=== PATIENT | female | born 1955 | race Caucasian/White ===

== ENCOUNTER 2020-01-18 12:21 | Outpatient (REF) | payer OTHER, SELFPAY ==
[2020-01-18 14:06] LABS: MANUAL DIFF FLAG NO
[2020-01-18 14:09] LABS: Basophils Absolute Auto 0.1 X10*3/uL (0.0-0.2); Eosinophils Absolute Auto 0.2 X10*3/uL (0.0-0.4); Eosinophils Percent Auto 2.9 % (0-4); Hematocrit 42.2 % (37-47); Hemoglobin 13.1 g/dl (12.0-16.0); Imm Gran Abs Auto 0.04 X10*3/uL (0.00-0.03); Imm Gran Pct Auto 0.6 % (0.0-0.4); Lymphocytes Absolute Auto 1.4 X10*3/uL (1.2-4.9); Lymphocytes Percent Auto 21.8 % (20-40); Mean Corpuscular Volume 83.7 fL (80-98); Mean Platelet Volume 10.1 fL (9.4-12.3); Monocytes Absolute Auto 0.7 X10*3/uL (0.1-1.2); Monocytes Percent Auto 11.6 % (2-11); Neutrophils Absolute Auto 3.9 X10*3/uL (2.0-8.3); Neutrophils Percent Auto 62.1 % (45-73); Platelet Count 365 X10*3/uL (160-400); Red Blood Count 5.04 X10*6/uL (4.20-5.50); Red Cell Distribution Width 15.6 % (11.0-16.0); White Blood Count 6.3 X10*3/uL (4.8-10.8)
[2020-01-18 14:44] LABS: Alanine Aminotransferase 19 U/L (0-31); Alkaline Phosphatase 151 U/L (39-117); Anion Gap 14 (12-20); Aspartate Amino Transferase 18 U/L (5-31); Bilirubin Total 0.5 mg/dL (0.0-1.0); Blood Urea Nitrogen 10 mg/dL (9-16); Calcium 9.3 mg/dL (8.4-10.2); Carbon Dioxide 27 mmol/L (22-29); Chloride 104 mmol/L (96-108); Estimated Glomerular Filt Rate > 60; Glucose Random 92 mg/dL (60-115); Potassium 4.4 mmol/l (3.3-5.1); Sodium 141 mmol/L (135-145); Total Protein 6.9 g/dL (6.5-8.0)
== END 2020-01-18 12:22 | disposition home or self-care (01) ==
LOC: HO.LAB 12:21
PROVIDERS: PCP Internal Medicine; Visit Provider Student in an Organized Health Care Education/Training Program
DX: M05.9 Rheumatoid arthritis with rheumatoid factor, unspecified (principal); Z79.899 Other long term (current) drug therapy
CPT/HCPCS: 36415; 80053; 85025; 86140

== ENCOUNTER → 2020-01-24 10:37 | Outpatient (BNVA) | payer OTHER, SELFPAY | PROVIDERS: PCP Internal Medicine; Referring Provider Internal Medicine; Visit Provider Student in an Organized Health Care Education/Training Program | DX: Z76.89 Persons encountering health services in other specified circumstances (principal) ==

== ENCOUNTER → 2020-02-14 08:11 | Outpatient (BNVA) | payer OTHER, SELFPAY | PROVIDERS: Visit Provider Obstetrics & Gynecology | DX: Z76.89 Persons encountering health services in other specified circumstances (principal) ==

== ENCOUNTER → 2020-05-13 08:31 | Outpatient (BNVA) | payer OTHER, SELFPAY | PROVIDERS: PCP Internal Medicine; Visit Provider Physician Assistant ==

== ENCOUNTER 2020-05-19 09:33 | Outpatient (REF) | payer OTHER, SELFPAY ==
--- NOTE | ~2020-05-19 | MM_ITS ---
EXAMINATION: MM SCREENING DIGITAL BREAST TOMOSYNTHESIS, BILATERAL CLINICAL INFORMATION: Screening. Asymptomatic. The lifetime risk of breast cancer based on the Tyrer-Cuzick Model is 5%. COMPARISON: Mammography: 06/07/2019, 01/05/2018, 12/17/2016 TECHNIQUE: Digital breast tomosynthesis is performed in both the craniocaudal and mediolateral oblique views along with computer-aided detection (CAD). Synthesized 2D images are generated from the tomosynthesis. FINDINGS: The breasts are heterogeneously dense, which may obscure small masses (ACR BI-RADS breast composition Category c). There are no significant masses, abnormal calcifications, or other abnormalities. There are scattered bilateral vascular calcifications. The punctate digital processing artifact overlies the posterior upper right axilla on synthesized MLO view without correlate on tomography. The skin contours are smooth. MM/MM tomosynthesis screening BI IMPRESSION: No mammographic evidence of malignancy. ASSESSMENT: BI-RADS 2: Benign RECOMMENDATION: Routine annual mammography screening. This patient's information was entered into a reminder system with a target due date for their next mammogram.
--- NOTE | ~2020-05-19 | MM_ITS ---
EXAMINATION: BONE DENSITOMETRY CLINICAL INDICATION: Other specified personal risk factors, not elsewhere classified. COMPARISON: Previous BD dated 10/21/2015 and baseline BD dated 08/09/2003. TECHNIQUE: Using a [employer] DXA System (software version: 13.1) manufactured by [employer], dual-energy x-ray absorptiometry was performed of the lumbar spine and left hip. The images are of good technical quality. Summary results are attached. FINDINGS: AP SPINE L1-L4: Current: BMD 0.823 g/cm2, Z-score -1.7, T-score -3.0, osteoporosis, 1.5% increase from previous, 23.4% decrease from baseline (<5% change is not significant). Prior: BMD 0.811 g/cm2. Baseline: BMD 1.074 g/cm2. LEFT FEMUR, NECK: Current: BMD 0.762 g/cm2, Z-score -0.7, T-score -2.0, osteopenia. Prior: BMD 0.776 g/cm2. Baseline: BMD 0.803 g/cm2. LEFT FEMUR, TOTAL: Current: BMD 0.779 g/cm2, Z-score -0.8, T-score -1.8, osteopenia, 1.1% decrease from previous, 4.5% decrease from baseline (<5% change is not significant). Prior: BMD 0.788 g/cm2. Baseline: BMD 0.816 g/cm2. IDENTIFIED RISK FACTORS: Menopause. Rheumatoid arthritis. HISTORY OF FRACTURE: None listed. MEDICATIONS: None listed. MM/XR DEXA axial skeleton IMPRESSION: 1. DIAGNOSIS: Osteoporosis based on the lowest T-score value of -3.0 in the lumbar spine applying World Health Organization criteria. 2. 10-YEAR FRACTURE RISK PREDICTION, FRAX: According to the guidelines, FRAX calculation should only be performed on patients in the osteopenia bone density category. Therefore, FRAX was not performed on this patient.? 3. Treatment Recommendations: NOF guidelines recommend consideration for treatment in postmenopausal women and men age 50 and older presenting with the following: -A hip or vertebral (clinical or morphometric) fracture. -T-score less than or equal to -2.5 at the femoral neck or spine after appropriate evaluation to exclude secondary causes. -Low bone mass at the hip or spine and a 10-year fracture probability by FRAX of greater than or equal to 3% for hip fracture or greater than or equal to 20% for major osteoporotic fracture based on the [place] adapted WHO algorithm. 4. Other Recommendations: All treatment decisions require clinical judgment and consideration of individual patient factors, including patient preferences, comorbidities, previous drug use, risk factors not captured in the FRAX model (e.g. frailty, falls, vitamin D deficiency, increased bone turnover, interval significant decline in bone density) and possible under or overestimation of fracture risk by FRAX. Additional medical evaluation for secondary cause of low bone mineral density may be appropriate. FUTURE SCAN RECOMMENDATION: People with diagnosed cases of osteoporosis or at high risk for fracture should have regular bone mineral density tests. For patients eligible for Medicare, routine testing is allowed once every 2 years. The testing frequency can be increased to one year for patients who have rapidly progressing disease, those who are receiving or discontinuing medical therapy to restore bone mass, or have additional risk factors.
== END 2020-05-19 09:34 | disposition home or self-care (01) ==
LOC: HO.MAMMO 09:33
PROVIDERS: PCP Internal Medicine; Visit Provider Obstetrics & Gynecology
DX: Z12.31 Encounter for screening mammogram for malignant neoplasm of breast (principal); Z13.820 Encounter for screening for osteoporosis; Z78.0 Asymptomatic menopausal state; M06.9 Rheumatoid arthritis, unspecified
CPT/HCPCS: 77063; 77067; 77080

== ENCOUNTER 2020-06-11 14:31 | Outpatient (REF) | payer OTHER, SELFPAY ==
[2020-06-11 15:18] LABS: MANUAL DIFF FLAG NO
[2020-06-11 15:21] LABS: Basophils Percent Auto 0.6 % (0-2); Eosinophils Absolute Auto 0.1 X10*3/uL (0.0-0.4); Eosinophils Percent Auto 0.9 % (0-4); Hematocrit 43.3 % (37-47); Hemoglobin 13.5 g/dl (12.0-16.0); Imm Gran Abs Auto 0.02 X10*3/uL (0.00-0.03); Imm Gran Pct Auto 0.4 % (0.0-0.4); Lymphocytes Absolute Auto 1.5 X10*3/uL (1.2-4.9); Lymphocytes Percent Auto 28.9 % (20-40); Mean Corpuscular HGB Conc 31.2 g/dl (31.0-35.0); Mean Corpuscular Hemoglobin 26.5 pg (27.0-33.0); Mean Corpuscular Volume 85.1 fL (80-98); Mean Platelet Volume 10.6 fL (9.4-12.3); Monocytes Absolute Auto 0.5 X10*3/uL (0.1-1.2); Monocytes Percent Auto 9.2 % (2-11); Neutrophils Absolute Auto 3.2 X10*3/uL (2.0-8.3); Platelet Count 277 X10*3/uL (160-400); Red Blood Count 5.09 X10*6/uL (4.20-5.50); Red Cell Distribution Width 15.6 % (11.0-16.0); White Blood Count 5.3 X10*3/uL (4.8-10.8)
[2020-06-11 15:49] LABS: Alanine Aminotransferase 20 U/L (0-31); Albumin Level 4.1 g/dL (3.5-5.0); Alkaline Phosphatase 156 U/L (39-117); Anion Gap 13 (12-20); Aspartate Amino Transferase 17 U/L (5-31); Bilirubin Total 0.6 mg/dL (0.0-1.0); Blood Urea Nitrogen 10 mg/dL (9-16); C Reactive Protein 1.21 mg/dL (< or = 0.50); Carbon Dioxide 27 mmol/L (22-29); Chloride 104 mmol/L (96-108); Estimated Glomerular Filt Rate > 60; Glucose Random 128 mg/dL (60-115); Potassium 3.8 mmol/L (3.3-5.1); Sodium 140 mmol/L (135-145)
[2020-06-11 16:06] LABS: Erythrocyte Sedimentation Rate 13 MM/HR (0-20)
[2020-06-11 16:08] LABS: Vitamin D 25-OH Total < 3.4 ng/mL (>30)
== END 2020-06-11 14:32 | disposition home or self-care (01) ==
LOC: HO.LAB 14:31
PROVIDERS: Obstetrics & Gynecology; PCP Internal Medicine; Visit Provider Student in an Organized Health Care Education/Training Program
DX: M05.9 Rheumatoid arthritis with rheumatoid factor, unspecified (principal); M81.0 Age-related osteoporosis without current pathological fracture
CPT/HCPCS: 36415; 80053; 82306; 85025; 85652; 86140

== ENCOUNTER → 2020-06-17 14:10 | Outpatient (BNVA) | payer OTHER, SELFPAY | PROVIDERS: PCP Internal Medicine; Visit Provider Student in an Organized Health Care Education/Training Program ==

== ENCOUNTER 2020-06-26 09:49 | Day surgery (SDC) | payer OTHER, SELFPAY ==
[2020-06-19 19:21] VITALS: BMI 28.6
--- NOTE | 2020-06-25 09:58 | HO.ANESPROP2 ---
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 Surgical History Surgical History H/O cystoscopy H/O hemorrhoidectomy History of colonoscopy Social History Social History Household Members: Family Alcohol intake: never Smoking Status: Former smoker Smoked in Last 30 Days: No Smoking Quit Date: 2010 Use of substances other than those prescribed or required for medical reasons: No Have you been hit, kicked, punched, or otherwise hurt by someone within the past year? If so, by whom?: No Advance Directives: No Advance Directives Information Provided: No Advance Directives on File: No Recently lost weight without trying: No Current occupational status: employed Current occupation: [employer] Allergies Allergy/AdvReac Type Severity Reaction Status Date / Time No Known Allergies Allergy Verified 06/26/20 10:30 [No Known Allergies*] Home Medications Medication Instructions Recorded Confirmed Last Taken Type acetaminophen 650 mg 1,300 mg PO Q12H PRN 01/24/20 06/19/20 Unknown History tablet,extended release folic acid 1 mg tablet 1 mg PO DAILY 01/24/20 06/19/20 Unknown History omeprazole 20 mg capsule,delayed 20 mg PO BID 01/24/20 06/19/20 Unknown History release triamcinolone acetonide 0.5 % 1 appl TOPICAL Q OTHER DAY PRN 03/20/20 06/19/20 Unknown History topical cream Exam Exam Date and Time: June 25, 2020 0958 Height,Weight and Vital Signs: Height 5 ft 4 in Weight 75.75 kg Pertinent Lab Results Pertinent Lab Results: Laboratory Tests 06/11/20 06/11/20 14:42 14:42 WBC 5.3 Hgb 13.5 Hct 43.3 Plt Count 277 Sodium 140 Potassium 3.8 Chloride 104 Carbon Dioxide 27 BUN 10 Creatinine 0.76 Assessment and Plan Assessment Anesthesia Assessment: Chart Reviewed Documented by User: Vaishnavi Dial 06/26/20 10:56 [facility] Past Medical History Medical History Acid reflux Anxiety GERD (gastroesophageal reflux disease) Iron deficiency Osteoporosis Polyarthritis Seropositive rheumatoid arthritis Nik's bundonaldtte, left Family History Family History Mother CVD (cardiovascular disease) Father No problems noted. Family history of problems with anesthesia: No Surgical History Surgical History H/O cystoscopy H/O hemorrhoidectomy History of colonoscopy History of Problems with Anesthesia: No Social History Social History Household Members: Family Alcohol intake: never Smoking Status: Former smoker Smoked in Last 30 Days: No Smoking Quit Date: 2010 Use of substances other than those prescribed or required for medical reasons: No Have you been hit, kicked, punched, or otherwise hurt by someone within the past year? If so, by whom?: No Advance Directives: No Advance Directives Information Provided: No Advance Directives on File: No Recently lost weight without trying: No Current occupational status: employed Current occupation: [employer] Allergies Allergy/AdvReac Type Severity Reaction Status Date / Time No Known Allergies Allergy Verified 06/26/20 10:30 [No Known Allergies*] Home Medications Medication Instructions Recorded Confirmed Last Taken Type acetaminophen 650 mg 1,300 mg PO Q12H PRN 10/29/20 03/25/21 Unknown History tablet,extended release folic acid 1 mg tablet 1 mg PO DAILY 01/24/20 06/19/20 Unknown History omeprazole 20 mg capsule,delayed 20 mg PO BID 01/24/20 06/19/20 Unknown History release triamcinolone acetonide 0.5 % 1 appl TOPICAL Q OTHER DAY PRN 03/20/20 06/19/20 Unknown History topical cream Exam Height,Weight and Vital Signs: Vital Signs Temp Pulse Resp BP Pulse Ox 06/26/20 10:13 98.4 F 70 18 139/76 98 Airway Mallampati Class: II TM Dist: >3cm Neck ROM: Full Loose/Missing/Broken Teeth: Yes (Chipped top front teeth) Heart: RRR Lungs: CTAB Assessment and Plan Assessment Anesthesia Assessment: Anesthesia Plan Discussed and Chart Reviewed Final Anesthetic Review NPO: Yes ASA Class: II Final Preanesthetic Review: No Changes in Pt Med Stat, Meds/Allgs Chart Reviewed, Consent Obtained/Reviewed and Anes Risks/Benef Reviewed Patient Risk: Intermediate Procedure Risk: Low Assessment/Block/Sedation in SS: Assess/Block/Sedation-SS Anesthetic Plan Anesthetic Plan: MAC: Disposition: Standard PACU
[2020-06-26 10:13] VITALS: BP 139/76; PULSE 70; RESP 18; TEMP 36.9; O2SAT 98
[2020-06-26] MEDS: Lactated Ringers 1,000 ML 100 ML IVCONT (10:40)
--- NOTE | 2020-06-26 10:50 | MHC.SHP ---
Pre-Procedural Eval Section B Chief Complaint: GERD, Screening Relevant Family History (Specify if Yes): No Relevant Social History: None Present Medications: see Short Stay Collaborative assessment Medical History: Significant History (Acid reflux Anxiety GERD (gastroesophageal reflux disease) Iron deficiency Osteoporosis Polyarthritis Seropositive rheumatoid arthritis Nik'laurie arreola, left) History of Previous Operations: Relevant previous surgery/procedure and date(s) (hemorrhoidectomy and cystoscopy) Allergies: Allergies Allergy/AdvReac Type Severity Reaction Status Date / Time No Known Allergies Allergy Verified 06/26/20 10:30 [No Known Allergies*] Review of Systems Sugical H&P ROS: Negative: Constitution, Cardiovascular, Respiratory, Neurological, Psychiatric, Hem-Onc, Allergic/Immunologic, Gastrointestinal, Genitourinary, Musculoskeletal, Integumentary, Endocrine and Eyes/Ears/Nose/Throat Exam Surgical H&P Exam: Normal: HEENT, Normal: Heart, Normal: Lungs, Normal: Extremities, Normal: Abdomen, Normal: Skin and Normal: Neurological Plan Diagnosis/Plan: Unchanged I have reviewed the history and physical and performed a pertinent physical examination on my patient. No changes have occurred unless specified.
--- NOTE | 2020-06-26 10:50 | PM.OP ---
Brief Operative Note Date of Service: 06/26/20 Pre-op diagnosis: GERD and colon screen Post-op diagnosis: same Procedure: see op note Surgeon: Leonora Tsang MD Anesthesia: MAC Estimated blood loss (mL): 0 Condition: stable Disposition: PACU
--- NOTE | 2020-06-26 10:51 | W.PM.OPN ---
Operative Note Operative Note Date of Service: 06/26/20 Narrative: Operative Information Procedure Description: EGD, Colonoscopy FLEXIBLE TRANSORAL UPPER GASTROINTESTINAL ENDOSCOPY AND COLONOSCOPY PROCEDURE NOTE UPPER ENDOSCOPY Consent: Indications for the procedure and potential complications of bleeding, perforation, reaction to medications and missed diagnosis were discussed with the patient and informed consent was obtained. Instrument: Olympus GIF H 190 J mid size upper endoscope Monitoring: Vital signs and clinical assessment, continuous EKG monitoring, Pulse oximetry, Carbon Dioxide monitoring and blood pressure monitoring were done throughout the procedure. Procedure: The patient was placed in the left lateral decubitis position and pre-procedure medications were administered and a bite block was placed. The endoscope was inserted into the mouth and advanced under direct vision to the third part of duodenum. A careful inspection was made as the upper endoscope was withdrawn including a retroflexed examination of the proximal stomach; Findings and interventions are described below. Findings: Larynx:normal Esophagus: GE junction at 33 cm, diaphragm hiatus at 36 cm, consistent with 3 cm sliding hiatal hernia, irregular Z line with esophagitis and some small islands of salmon pink mucosa noted, bx taken Stomach: Normal mucosa with few fundic gland polyps noted. Biopsies were obtained. Grade 2 flap valve on retroflexed examination of the cardia. Duodenum: Normal bulb and descending duodenum, Intervention: Biopsies as noted above COLONOSCOPY Instrument: Olympus variable stiffness pediatric scope 190L Colonoscopy Monitoring: Vital signs and clinical assessment, continuous EKG monitoring, Pulse oximetry, Carbon Dioxide monitoring and blood pressure monitoring were done throughout the procedure. Colon withdrawal time was 12 minutes. Procedure: The patient was placed in the left lateral decubitis position and pre-procedure medications were administered. After a digital rectal examination of the ano-rectum, the video colonoscope was inserted into the rectum and advanced through the colon to the cecum/TI. The colonoscope was slowly withdrawn in a retrograde panoramic fashion and the colon mucosa was carefully examined including a retroflexed view of the rectum. Findings and interventions are described below. Procedure Difficulty:easy Findings: Terminal Ileum-normal Cecum:normal Ascending Colon: normal Transverse Colon - x2 sessile polyps measuring 10-12 mm removed with cold snare Descending Colon: x 1 sessile polyp removed with cold snare about 10 mm in size Sigmoid Colon: normal Rectum: Retroflexion with small internal hemorrhoids, grade I Anorectum - normal Colon preparation: [place] Bowel Preparation Scale Right colon; 2 Transverse colon: 1 Left colon; 1 (0 = Unprepared colon segment with mucosa not seen due to solid stool that cannot be cleared. 1 = Portion of mucosa of the colon segment seen, but other areas of the colon segment not well seen due to staining, residual stool and/or opaque liquid. 2 = Minor amount of residual staining, small fragments of stool and/or opaque liquid, but mucosa of colon segment seen well. 3 = Entire mucosa of colon segment seen well with no residual staining, small fragments of stool or opaque liquid) Impression and Post Procedure Diagnosis: Endoscopy Findings: esophagitis hiatal hernia fundic gland polyps Colonoscopy Findings: internal hemorrhoids polyps Plan: Await Pathology results Repeat Colonoscopy in 1-2 years due to left sided prep being fair to poor or earlier if clinically indicated High fiber diet leaflet avoid straining at stool, epsom salts and sitz bath, anusol supps or cream as needed may have to increase PPI dose, GERd precautions due to hiatal hernia Above findings were reviewed with the patient and relevant handouts were provided if indicated.
[2020-06-26 11:36] VITALS: BP 121/66; PULSE 74; RESP 14; TEMP 36.9; O2SAT 98
[2020-06-26 11:51] VITALS: BP 129/67; PULSE 58; RESP 18; TEMP 37; O2SAT 98
== END 2020-06-26 12:40 | disposition home or self-care (01) ==
LOC: HO.SSS 09:50
PROVIDERS: PCP Internal Medicine; Visit Provider Internal Medicine Gastroenterology
PROC: (CPT 45385; principal; 2020-06-26 11:00)
DX: Z12.11 Encounter for screening for malignant neoplasm of colon (principal); D12.3 Benign neoplasm of transverse colon; D12.4 Benign neoplasm of descending colon; K64.0 First degree hemorrhoids; K21.00 Gastro-esophageal reflux disease with esophagitis, without bleeding; K31.7 Polyp of stomach and duodenum; K44.9 Diaphragmatic hernia without obstruction or gangrene; M05.9 Rheumatoid arthritis with rheumatoid factor, unspecified; M81.0 Age-related osteoporosis without current pathological fracture; Z79.899 Other long term (current) drug therapy
CPT/HCPCS: 45385; 43239; 88305; 88342; J3010

== ENCOUNTER → 2020-07-03 08:59 | Outpatient (BNVA) | payer OTHER, SELFPAY | PROVIDERS: PCP Internal Medicine; Visit Provider Physician Assistant ==

== ENCOUNTER 2020-09-16 13:05 | Outpatient (REF) | payer OTHER, SELFPAY ==
[2020-09-16 14:02] LABS: MANUAL DIFF FLAG NO
[2020-09-16 14:08] LABS: Basophils Percent Auto 0.7 % (0-2); Eosinophils Absolute Auto 0.1 X10*3/uL (0.0-0.4); Eosinophils Percent Auto 2.4 % (0-4); Hematocrit 39.6 % (37-47); Hemoglobin 12.4 g/dl (12.0-16.0); Imm Gran Abs Auto 0.02 X10*3/uL (0.00-0.03); Imm Gran Pct Auto 0.4 % (0.0-0.4); Lymphocytes Absolute Auto 1.5 X10*3/uL (1.2-4.9); Mean Corpuscular HGB Conc 31.3 g/dl (31.0-35.0); Mean Corpuscular Hemoglobin 26.2 pg (27.0-33.0); Mean Corpuscular Volume 83.7 fL (80-98); Monocytes Absolute Auto 0.5 X10*3/uL (0.1-1.2); Monocytes Percent Auto 11.6 % (2-11); Neutrophils Absolute Auto 2.4 X10*3/uL (2.0-8.3); Neutrophils Percent Auto 51.9 % (45-73); Platelet Count 268 X10*3/uL (160-400); Red Blood Count 4.73 X10*6/uL (4.20-5.50); Red Cell Distribution Width 15.3 % (11.0-16.0); White Blood Count 4.6 X10*3/uL (4.8-10.8)
[2020-09-16 14:47] LABS: Alanine Aminotransferase 14 U/L (0-31); Albumin Level 3.8 g/dL (3.5-5.0); Alkaline Phosphatase 154 U/L (39-117); Anion Gap 11 (12-20); Aspartate Amino Transferase 16 U/L (5-31); Bilirubin Total 0.6 mg/dL (0.0-1.0); Blood Urea Nitrogen 8 mg/dL (9-16); C Reactive Protein 0.71 mg/dL (< or = 0.50); Calcium 9.1 mg/dL (8.4-10.2); Carbon Dioxide 26 mmol/L (22-29); Chloride 106 mmol/L (96-108); Estimated Glomerular Filt Rate > 60; Glucose Random 98 mg/dL (60-115); Sodium 139 mmol/L (135-145); Total Protein 6.6 g/dL (6.5-8.0)
[2020-09-16 15:00] LABS: Erythrocyte Sedimentation Rate 10 MM/HR (0-20)
== END 2020-09-16 13:06 | disposition home or self-care (01) ==
LOC: HO.LAB 13:05
PROVIDERS: PCP Internal Medicine; Visit Provider Student in an Organized Health Care Education/Training Program
DX: Z11.1 Encounter for screening for respiratory tuberculosis (principal); M05.9 Rheumatoid arthritis with rheumatoid factor, unspecified
CPT/HCPCS: 36415; 80053; 85025; 85652; 86140

== ENCOUNTER → 2020-09-23 08:37 | Outpatient (BNVA) | payer OTHER, SELFPAY | PROVIDERS: Visit Provider Student in an Organized Health Care Education/Training Program ==

== ENCOUNTER 2020-12-25 10:15 | Outpatient (REF) | payer OTHER, SELFPAY ==
[2020-12-25 10:44] LABS: MANUAL DIFF FLAG NO
[2020-12-25 11:12] LABS: Basophils Percent Auto 0.6 % (0-2); Eosinophils Absolute Auto 0.1 X10*3/uL (0.0-0.4); Eosinophils Percent Auto 1.2 % (0-4); Hematocrit 42.2 % (37-47); Hemoglobin 13.1 g/dl (12.0-16.0); Imm Gran Abs Auto 0.01 X10*3/uL (0.00-0.03); Imm Gran Pct Auto 0.2 % (0.0-0.4); Lymphocytes Percent Auto 20.1 % (20-40); Mean Corpuscular Hemoglobin 26.4 pg (27.0-33.0); Mean Corpuscular Volume 85.1 fL (80-98); Mean Platelet Volume 10.3 fL (9.4-12.3); Monocytes Absolute Auto 0.4 X10*3/uL (0.1-1.2); Monocytes Percent Auto 9.1 % (2-11); Neutrophils Absolute Auto 3.3 X10*3/uL (2.0-8.3); Neutrophils Percent Auto 68.8 % (45-73); Platelet Count 270 X10*3/uL (160-400); Red Blood Count 4.96 X10*6/uL (4.20-5.50); Red Cell Distribution Width 15.5 % (11.0-16.0); White Blood Count 4.8 X10*3/uL (4.8-10.8)
[2020-12-25 11:30] LABS: Alanine Aminotransferase 16 U/L (0-31); Albumin Level 3.9 g/dL (3.5-5.0); Alkaline Phosphatase 147 U/L (39-117); Anion Gap 13 (12-20); Aspartate Amino Transferase 15 U/L (5-31); Bilirubin Total 0.6 mg/dL (0.0-1.0); Blood Urea Nitrogen 7 mg/dL (9-16); C Reactive Protein 0.76 mg/dL (< or = 0.50); Calcium 9.2 mg/dL (8.4-10.2); Carbon Dioxide 25 mmol/L (22-29); Chloride 108 mmol/L (96-108); Cholesterol 208 mg/dL; Estimated Glomerular Filt Rate > 60; Glucose Random 100 mg/dL (60-115); HDL Cholesterol 76 mg/dL; LDL Cholesterol Calculated 119 mg/dl; Potassium 3.6 mmol/L (3.3-5.1); Sodium 142 mmol/L (135-145); Total Protein 6.8 g/dL (6.5-8.0); Triglycerides 66 mg/dL
[2020-12-25 11:49] LABS: Thyroid Stimulating Hormone 0.44 uIU/mL (0.32-4.0)
[2020-12-25 12:38] LABS: Erythrocyte Sedimentation Rate 8 MM/HR (0-20)
[2020-12-30 14:56] LABS: Vitamin D 25-OH, D2 26 ng/mL; Vitamin D 25-OH, D3 30 ng/mL; Vitamin D 25-OH, Total 56 ng/mL (30-100)
== END 2020-12-25 10:16 | disposition home or self-care (01) ==
LOC: HO.LAB 10:15
PROVIDERS: Visit Provider Student in an Organized Health Care Education/Training Program
DX: M05.9 Rheumatoid arthritis with rheumatoid factor, unspecified (principal); E11.9 Type 2 diabetes mellitus without complications; E03.9 Hypothyroidism, unspecified
CPT/HCPCS: 36415; 80053; 80061; 82306; 84443; 85025; 85652; 86140

== ENCOUNTER → 2020-12-30 09:44 | Outpatient (BNVA) | payer OTHER, SELFPAY | PROVIDERS: PCP Internal Medicine; Visit Provider Nurse Practitioner Family ==

== ENCOUNTER → 2021-04-02 09:56 | Outpatient (BNVA) | payer OTHER, SELFPAY | PROVIDERS: PCP Internal Medicine; Visit Provider Nurse Practitioner Family ==

== ENCOUNTER 2021-04-04 09:22 | Outpatient (REF) | payer OTHER, SELFPAY ==
--- NOTE | ~2021-04-04 | XR_ITS ---
EXAMINATION: XR ABDOMEN KUB CLINICAL INDICATION: Epigastric pain COMPARISON: None TECHNIQUE: AP view of the abdomen. FINDINGS: There is scattered stool and gas seen throughout the right colon without distention. No organomegaly. No radiopaque calculi. No gross bony abnormality. XR/XR abdomen 1V IMPRESSION: Mild constipation.
[2021-04-04 10:44] LABS: Ferritin 147 ng/mL (10-250); TSH reflex Free T4 1.27 uIU/mL (0.32-4.0); Vitamin D 25-OH Total 37.1 ng/mL (>30)
[2021-04-06 09:18] LABS: Folate 14.1 ng/mL (> or = 4.0); Vitamin B12 301 pg/mL (200-900)
[2021-04-06 13:46] LABS: IgA 249 mg/dL (70-320); IgG 1158 mg/dL (600-1540); IgM 55 mg/dL (50-300)
[2021-04-07 17:56] LABS: Transglutaminase Ab IgG <1.0 U/mL; Transglutaminase IgA <1.0 U/mL
[2021-04-08 15:06] LABS: Zinc 63 mcg/dL (60-130)
[2021-04-09 00:31] LABS: Vitamin A 13 mcg/dL (38-98)
[2021-04-09 22:52] LABS: Vitamin C 0.2 mg/dL (0.3-2.7)
== END 2021-04-04 09:23 | disposition home or self-care (01) ==
LOC: HO.LAB 09:22
PROVIDERS: PCP Internal Medicine; Visit Provider Internal Medicine Gastroenterology
DX: R10.13 Epigastric pain (principal); R10.33 Periumbilical pain; R19.7 Diarrhea, unspecified; G89.29 Other chronic pain
CPT/HCPCS: 36415; 74018; 82180; 82306; 82607; 82728; 82746; 82784; 83520; 84443; 84590; 84630; 86364

== ENCOUNTER 2021-04-06 09:17 | Outpatient (REF) | payer OTHER, SELFPAY ==
[2021-04-06 10:52] LABS: CDiff Gene PCR POSITIVE (Negative)
[2021-04-06 11:48] LABS: CDiff Toxin Positive (Negative)
[2021-04-06 11:54] LABS: CDIFF Internal ctrl Dots and bkg OK (V)
[2021-04-11 19:41] LABS: Pancreatic Elastase-1 <15 mcg/g
[2021-04-19 01:52] LABS: Fecal Fat Qualitative NORMAL (NORMAL)
== END 2021-04-06 09:18 | disposition home or self-care (01) ==
LOC: HO.LNP 09:17
PROVIDERS: Visit Provider Internal Medicine Gastroenterology
DX: R10.13 Epigastric pain (principal); R19.7 Diarrhea, unspecified
CPT/HCPCS: 82656; 82705; 83631; 87324; 87338; 87493

== ENCOUNTER 2021-04-22 | Outpatient (REF) | payer OTHER, SELFPAY ==
[2021-04-25 18:01] LABS: Lactoferrin, Fecal, Quant. <30.0 mcg/mL
== END 2021-04-22 00:01 ==
LOC: HO.LAB
PROVIDERS: PCP Internal Medicine; Visit Provider Internal Medicine Gastroenterology
DX: R19.7 Diarrhea, unspecified (principal); R10.13 Epigastric pain
CPT/HCPCS: 83631

== ENCOUNTER → 2021-05-26 09:25 | Outpatient (BNVA) | payer OTHER, SELFPAY | PROVIDERS: PCP Internal Medicine; Visit Provider Advanced Practice Midwife ==

== ENCOUNTER → 2021-06-05 10:37 | Outpatient (BNVA) | payer OTHER, SELFPAY | PROVIDERS: PCP Internal Medicine; Referring Provider Internal Medicine; Visit Provider Internal Medicine Gastroenterology ==

== ENCOUNTER 2021-06-16 10:28 | Outpatient (REF) | payer OTHER, SELFPAY ==
--- NOTE | ~2021-06-16 | MM_ITS ---
EXAMINATION: MM SCREENING DIGITAL BREAST TOMOSYNTHESIS, BILATERAL CLINICAL INFORMATION: Screening. Asymptomatic. The lifetime risk of breast cancer based on the Tyrer-Cuzick Model is 3.2%. COMPARISON: Mammography: May 19, 2020 and studies dating back to July 17, 2013 TECHNIQUE: Digital breast tomosynthesis is performed in both the craniocaudal and mediolateral oblique views along with computer-aided detection (CAD). Synthesized 2D images are generated from the tomosynthesis. FINDINGS: The breasts are heterogeneously dense, which may obscure small masses (ACR BI-RADS breast composition Category c). There are no significant masses, abnormal calcifications, or other abnormalities. MM/MM tomosynthesis screening BI IMPRESSION: There are no significant changes from prior study. ASSESSMENT: BI-RADS 1: Negative RECOMMENDATION: Routine annual mammography screening. This patient's information was entered into a reminder system with a target due date for their next mammogram.
== END 2021-06-16 10:29 | disposition home or self-care (01) ==
LOC: HO.MAMMO 10:28
PROVIDERS: PCP Internal Medicine; Visit Provider Advanced Practice Midwife
DX: Z12.31 Encounter for screening mammogram for malignant neoplasm of breast (principal)
CPT/HCPCS: 77063; 77067

== ENCOUNTER 2021-09-02 11:23 | Outpatient (REF) | payer OTHER, SELFPAY ==
[2021-09-02 11:39] LABS: MANUAL DIFF FLAG NO
[2021-09-02 12:01] LABS: Basophils Percent Auto 0.8 % (0-2); Eosinophils Absolute Auto 0.1 X10*3/uL (0.0-0.4); Eosinophils Percent Auto 2.1 % (0-4); Hematocrit 40.5 % (37.0-47.0); Hemoglobin 12.7 g/dl (12.0-16.0); Imm Gran Abs Auto 0.01 X10*3/uL (0.00-0.03); Imm Gran Pct Auto 0.2 % (0.0-0.4); Lymphocytes Absolute Auto 1.6 X10*3/uL (1.2-4.9); Lymphocytes Percent Auto 32.6 % (20-40); Mean Corpuscular HGB Conc 31.4 g/dl (31.0-35.0); Mean Corpuscular Hemoglobin 25.5 pg (27.0-33.0); Mean Corpuscular Volume 81.3 fL (80.0-98.0); Mean Platelet Volume 10.5 fL (9.4-12.3); Monocytes Absolute Auto 0.4 X10*3/uL (0.1-1.2); Monocytes Percent Auto 8.8 % (2-11); Neutrophils Absolute Auto 2.7 x10*3/uL (2.0-8.3); Neutrophils Percent Auto 55.5 % (45-73); Platelet Count 296 X10*3/uL (160-400); Red Blood Count 4.98 X10*6/uL (4.20-5.50); Red Cell Distribution Width 16.3 % (11.0-16.0); White Blood Count 4.8 X10*3/uL (4.8-10.8)
[2021-09-02 12:26] LABS: Alanine Aminotransferase 11 U/L (0-31); Albumin Level 3.9 g/dL (3.5-5.0); Alkaline Phosphatase 130 U/L (39-117); Anion Gap 12 (12-20); Aspartate Amino Transferase 15 U/L (5-31); Bilirubin Total 0.6 mg/dL (0.0-1.0); Blood Urea Nitrogen 8 mg/dL (9-16); C Reactive Protein 0.28 mg/dL (< or = 0.50); Calcium 9.6 mg/dL (8.4-10.2); Carbon Dioxide 27 mmol/L (22-29); Chloride 106 mmol/L (96-108); Estimated Glomerular Filt Rate > 60; Glucose Random 93 mg/dL (60-115); Potassium 3.7 mmol/L (3.3-5.1); Sodium 141 mmol/L (135-145); Total Protein 6.8 g/dL (6.5-8.0)
[2021-09-02 12:48] LABS: Erythrocyte Sedimentation Rate 9 MM/HR (0-20)
[2021-09-05 09:57] LABS: TS Negative Control Passed; TS Panel A 2; TS Panel B 0; TS Positive Control Passed; TSpotTB Negative (Negative)
== END 2021-09-02 11:24 | disposition home or self-care (01) ==
LOC: HO.LAB 11:23
PROVIDERS: PCP Internal Medicine; Visit Provider Nurse Practitioner Family
DX: Z11.1 Encounter for screening for respiratory tuberculosis (principal); M05.9 Rheumatoid arthritis with rheumatoid factor, unspecified
CPT/HCPCS: 36415; 80053; 85025; 85652; 86140; 86481

== ENCOUNTER 2022-01-04 11:02 | Outpatient (REF) | payer OTHER, SELFPAY ==
[2022-01-04 11:14] LABS: MANUAL DIFF FLAG NO
[2022-01-04 12:02] LABS: Basophils Percent Auto 0.9 % (0-2); Eosinophils Absolute Auto 0.1 X10*3/uL (0.0-0.4); Eosinophils Percent Auto 1.9 % (0-4); Hematocrit 42.2 % (37.0-47.0); Hemoglobin 13.2 g/dl (12.0-16.0); Imm Gran Abs Auto 0.01 X10*3/uL (0.00-0.03); Imm Gran Pct Auto 0.2 % (0.0-0.4); Lymphocytes Absolute Auto 1.3 X10*3/uL (1.2-4.9); Lymphocytes Percent Auto 30.5 % (20-40); Mean Corpuscular HGB Conc 31.3 g/dl (31.0-35.0); Mean Corpuscular Hemoglobin 25.8 pg (27.0-33.0); Mean Corpuscular Volume 82.4 fL (80.0-98.0); Mean Platelet Volume 10.2 fL (9.4-12.3); Monocytes Absolute Auto 0.4 X10*3/uL (0.1-1.2); Monocytes Percent Auto 9.7 % (2-11); Neutrophils Absolute Auto 2.4 x10*3/uL (2.0-8.3); Neutrophils Percent Auto 56.8 % (45-73); Platelet Count 239 X10*3/uL (160-400); Red Blood Count 5.12 X10*6/uL (4.20-5.50); Red Cell Distribution Width 15.9 % (11.0-16.0); White Blood Count 4.2 X10*3/uL (4.8-10.8)
[2022-01-04 12:51] LABS: Erythrocyte Sedimentation Rate 6 MM/HR (0-20)
[2022-01-04 12:56] LABS: Alanine Aminotransferase 12 U/L (0-31); Albumin Level 4.1 g/dL (3.5-5.0); Alkaline Phosphatase 124 U/L (39-117); Anion Gap 13 (12-20); Aspartate Amino Transferase 17 U/L (5-31); Bilirubin Total 0.9 mg/dL (0.0-1.0); Blood Urea Nitrogen 10 mg/dL (9-16); C Reactive Protein 0.36 mg/dL (< or = 0.50); Calcium 8.9 mg/dL (8.4-10.2); Carbon Dioxide 26 mmol/L (22-29); Chloride 109 mmol/L (96-108); Cholesterol 231 mg/dL; Estimated Glomerular Filt Rate > 60; Glucose Random 84 mg/dL (60-115); HDL Cholesterol 90 mg/dL; LDL Cholesterol Calculated 131 mg/dl; Potassium 3.5 mmol/L (3.3-5.1); Sodium 144 mmol/L (135-145); Total Protein 6.8 g/dL (6.5-8.0); Triglycerides 52 mg/dL
== END 2022-01-04 11:03 | disposition home or self-care (01) ==
LOC: HO.LAB 11:02
PROVIDERS: PCP Internal Medicine; Visit Provider Nurse Practitioner Family
DX: M05.9 Rheumatoid arthritis with rheumatoid factor, unspecified (principal); E78.5 Hyperlipidemia, unspecified
CPT/HCPCS: 36415; 80053; 80061; 85025; 85652; 86140

== ENCOUNTER 2022-02-15 09:59 | Outpatient (REF) | payer OTHER, SELFPAY ==
[2022-02-15 11:30] LABS: Vitamin D 25-OH Total 18.6 ng/mL (>30)
[2022-02-15 11:43] LABS: Folate 9.3 ng/mL (> or = 4.0); Vitamin B12 231 pg/mL (200-900)
[2022-02-19 15:42] LABS: Vitamin C 1.1 mg/dL (0.3-2.7)
[2022-02-20 13:26] LABS: Nicotinamide 20 ng/mL; Vit B3 - Nicotinic Acid <20 ng/mL
[2022-02-20 14:31] LABS: Vitamin B6 12.3 ng/mL (2.1-21.7)
[2022-02-20 16:57] LABS: Zinc 79 mcg/dL (60-130)
[2022-02-20 21:06] LABS: Vitamin K1 1740 pg/mL (130-1500)
[2022-02-21 13:31] LABS: Vitamin B1 15 nmol/L (8-30)
[2022-02-21 16:47] LABS: Alpha-Tocopherol 15.9 mg/L (5.7-19.9); Beta-Gamma Tocopherol 1.5 mg/L (<=4.3)
[2022-02-23 10:54] LABS: Vitamin A 27 mcg/dL (38-98)
[2022-02-23 10:58] LABS: Vitamin B5 (Pantothenic Acid) <40 ng/mL (<275)
== END 2022-02-15 10:00 | disposition home or self-care (01) ==
LOC: HO.LAB 09:59
PROVIDERS: PCP Internal Medicine; Visit Provider Internal Medicine Gastroenterology
DX: E50.9 Vitamin A deficiency, unspecified (principal); E54 Ascorbic acid deficiency; R19.7 Diarrhea, unspecified
CPT/HCPCS: 36415; 82180; 82306; 82607; 82746; 84207; 84425; 84446; 84590; 84591; 84597; 84630

== ENCOUNTER 2022-03-24 12:00 | Outpatient (REF) | payer OTHER, SELFPAY ==
[2022-03-30 22:48] LABS: Pancreatic Elastase-1 >500 mcg/g
== END 2022-03-24 12:01 | disposition home or self-care (01) ==
LOC: HO.LNP 12:00
PROVIDERS: Visit Provider Internal Medicine Gastroenterology
DX: E50.9 Vitamin A deficiency, unspecified (principal); R19.7 Diarrhea, unspecified; E54 Ascorbic acid deficiency
CPT/HCPCS: 82656

== ENCOUNTER 2022-04-19 11:51 | Outpatient (REF) | payer OTHER, SELFPAY ==
[2022-04-19 12:06] LABS: MANUAL DIFF FLAG NO
[2022-04-19 12:24] LABS: Basophils Percent Auto 0.9 % (0-2); Eosinophils Absolute Auto 0.1 X10*3/uL (0.0-0.4); Eosinophils Percent Auto 1.7 % (0-4); Hematocrit 43.1 % (37.0-47.0); Hemoglobin 13.6 g/dl (12.0-16.0); Imm Gran Abs Auto 0.02 X10*3/uL (0.00-0.03); Imm Gran Pct Auto 0.4 % (0.0-0.4); Lymphocytes Absolute Auto 1.6 X10*3/uL (1.2-4.9); Lymphocytes Percent Auto 34.3 % (20-40); Mean Corpuscular HGB Conc 31.6 g/dl (31.0-35.0); Mean Corpuscular Hemoglobin 25.9 pg (27.0-33.0); Mean Corpuscular Volume 82.1 fL (80.0-98.0); Mean Platelet Volume 9.9 fL (9.4-12.3); Monocytes Absolute Auto 0.4 X10*3/uL (0.1-1.2); Monocytes Percent Auto 8.7 % (2-11); Neutrophils Absolute Auto 2.5 x10*3/uL (2.0-8.3); Platelet Count 252 X10*3/uL (160-400); Red Blood Count 5.25 X10*6/uL (4.20-5.50); Red Cell Distribution Width 15.9 % (11.0-16.0); White Blood Count 4.7 X10*3/uL (4.8-10.8)
[2022-04-19 13:06] LABS: Erythrocyte Sedimentation Rate 9 MM/HR (0-20)
[2022-04-19 13:29] LABS: Alanine Aminotransferase 9 U/L (0-31); Aspartate Amino Transferase 15 U/L (5-31); Estimated Glomerular Filt Rate > 60
== END 2022-04-19 11:52 | disposition home or self-care (01) ==
LOC: HO.LAB 11:51
PROVIDERS: PCP Internal Medicine; Visit Provider Nurse Practitioner Family
DX: M05.9 Rheumatoid arthritis with rheumatoid factor, unspecified (principal); Z79.899 Other long term (current) drug therapy
CPT/HCPCS: 36415; 82565; 84450; 84460; 85025; 85652; 86140

== ENCOUNTER → 2022-04-26 13:30 | Outpatient (BNVA) | payer OTHER, SELFPAY | PROVIDERS: PCP Internal Medicine; Visit Provider Nurse Practitioner Family | DX: Z13.89 Encounter for screening for other disorder (principal) ==

== ENCOUNTER 2022-04-30 08:48 | Outpatient (REF) | payer OTHER, SELFPAY ==
--- NOTE | ~2022-04-30 | XR_ITS ---
EXAMINATION: XR ANKLE, BILATERAL XR TM JOINT, BILATERAL CLINICAL INFORMATION: Pain. COMPARISON: None TECHNIQUE: 3 views each ankle and 5 views bilateral TM joints. FINDINGS: RIGHT ANKLE: There is no visible acute fracture, dislocation or subluxation seen. The ankle mortise and subtalar joints are normal. The soft tissues are normal. LEFT ANKLE: The ankle mortise and subtalar joints are normal. No visible acute fracture, dislocation or subluxation seen. The soft tissues are normal. BILATERAL TM JOINTS: There is normal symmetry of bilateral TM joints on AP view. On open and closed-mouth projection there is normal translation of bilateral condyles without any bony erosive changes. XR/XR ankle RT 2V IMPRESSION: Unremarkable bilateral ankle exam. Unremarkable bilateral TM joints.
--- NOTE | ~2022-04-30 | XR_ITS ---
EXAMINATION: XR ANKLE, BILATERAL XR TM JOINT, BILATERAL CLINICAL INFORMATION: Pain. COMPARISON: None TECHNIQUE: 3 views each ankle and 5 views bilateral TM joints. FINDINGS: RIGHT ANKLE: There is no visible acute fracture, dislocation or subluxation seen. The ankle mortise and subtalar joints are normal. The soft tissues are normal. LEFT ANKLE: The ankle mortise and subtalar joints are normal. No visible acute fracture, dislocation or subluxation seen. The soft tissues are normal. BILATERAL TM JOINTS: There is normal symmetry of bilateral TM joints on AP view. On open and closed-mouth projection there is normal translation of bilateral condyles without any bony erosive changes. XR/XR TMJ BI IMPRESSION: Unremarkable bilateral ankle exam. Unremarkable bilateral TM joints.
--- NOTE | ~2022-04-30 | XR_ITS ---
EXAMINATION: XR ANKLE, BILATERAL XR TM JOINT, BILATERAL CLINICAL INFORMATION: Pain. COMPARISON: None TECHNIQUE: 3 views each ankle and 5 views bilateral TM joints. FINDINGS: RIGHT ANKLE: There is no visible acute fracture, dislocation or subluxation seen. The ankle mortise and subtalar joints are normal. The soft tissues are normal. LEFT ANKLE: The ankle mortise and subtalar joints are normal. No visible acute fracture, dislocation or subluxation seen. The soft tissues are normal. BILATERAL TM JOINTS: There is normal symmetry of bilateral TM joints on AP view. On open and closed-mouth projection there is normal translation of bilateral condyles without any bony erosive changes. XR/XR ankle LT 2V IMPRESSION: Unremarkable bilateral ankle exam. Unremarkable bilateral TM joints.
== END 2022-04-30 08:49 | disposition home or self-care (01) ==
LOC: HO.XRAY 08:48
PROVIDERS: PCP Internal Medicine; Visit Provider Nurse Practitioner Family
DX: M25.571 Pain in right ankle and joints of right foot (principal); M25.572 Pain in left ankle and joints of left foot; R68.84 Jaw pain
CPT/HCPCS: 70330; 73600

== ENCOUNTER 2022-05-21 10:18 | Outpatient (REF) | payer OTHER, SELFPAY ==
--- NOTE | ~2022-05-21 | MM_ITS ---
EXAMINATION: BONE DENSITOMETRY CLINICAL INDICATION: Osteoporosis. COMPARISON: Previous BD dated 05/19/2020 and baseline BD dated 08/09/2003. TECHNIQUE: Using a [employer] DXA System (software version: 13.1) manufactured by [employer], dual-energy x-ray absorptiometry was performed of the lumbar spine and left hip. The images are of good technical quality. Summary results are attached. FINDINGS: AP SPINE L2-L3 (excluding L1 and L4): The data of L1-L4 has been changed to exclude the L1 and L4 vertebral bodies, because mild degenerative changes at these levels may cause overestimation of lumbar spine density. Current: BMD 0.745 g/cm2, Z-score -2.1, T-score -3.8, osteoporosis, 8.4% decrease from previous, 30.2% decrease from baseline (<5% change is not significant). Prior: BMD 0.813 g/cm2. Baseline: BMD 1.068 g/cm2. LEFT FEMUR, NECK: Current: BMD 0.630 g/cm2, Z-score -1.3, T-score -2.9, osteoporosis. Prior: BMD 0.762 g/cm2. Baseline: BMD 0.803 g/cm2. LEFT FEMUR, TOTAL: Current: BMD 0.652 g/cm2, Z-score -1.4, T-score -2.8, osteoporosis, 16.3% decrease from previous, 20.1% decrease from baseline (<5% change is not significant). Prior: BMD 0.779 g/cm2. Baseline: BMD 0.816 g/cm2. IDENTIFIED RISK FACTORS: Menopause, height loss, osteoporosis, rheumatoid arthritis. HISTORY OF FRACTURE: None listed. MEDICATIONS: Calcium, vitamin D. MM/XR DEXA axial skeleton IMPRESSION: 1. DIAGNOSIS: Osteoporosis based on the lowest T-score value of -3.8 in the lumbar spine applying World Health Organization criteria. 2. 10-YEAR FRACTURE RISK PREDICTION, FRAX: According to the guidelines, FRAX calculation should only be performed on patients in the osteopenia bone density category. Therefore, FRAX was not performed on this patient. 3. Treatment Recommendations: NOF guidelines recommend consideration for treatment in postmenopausal women and men age 50 and older presenting with the following: -A hip or vertebral (clinical or morphometric) fracture. -T-score less than or equal to -2.5 at the femoral neck or spine after appropriate evaluation to exclude secondary causes. -Low bone mass at the hip or spine and a 10-year fracture probability by FRAX of greater than or equal to 3% for hip fracture or greater than or equal to 20% for major osteoporotic fracture based on the [place] adapted WHO algorithm. 4. Other Recommendations: All treatment decisions require clinical judgment and consideration of individual patient factors, including patient preferences, comorbidities, previous drug use, risk factors not captured in the FRAX model (e.g. frailty, falls, vitamin D deficiency, increased bone turnover, interval significant decline in bone density) and possible under or overestimation of fracture risk by FRAX. Additional medical evaluation for secondary cause of low bone mineral density may be appropriate. FUTURE SCAN RECOMMENDATION: People with diagnosed cases of osteoporosis or at high risk for fracture should have regular bone mineral density tests. For patients eligible for Medicare, routine testing is allowed once every 2 years. The testing frequency can be increased to one year for patients who have rapidly progressing disease, those who are receiving or discontinuing medical therapy to restore bone mass, or have additional risk factors.
== END 2022-05-21 10:19 | disposition home or self-care (01) ==
LOC: HO.MAMMO 10:18
PROVIDERS: PCP Internal Medicine; Visit Provider Nurse Practitioner Family
DX: M81.0 Age-related osteoporosis without current pathological fracture (principal)
CPT/HCPCS: 77080

== ENCOUNTER 2022-06-22 10:41 | Outpatient (REF) | payer OTHER, SELFPAY ==
--- NOTE | ~2022-06-22 | MM_ITS ---
EXAMINATION: MM SCREENING DIGITAL BREAST TOMOSYNTHESIS, BILATERAL CLINICAL INFORMATION: Screening. Asymptomatic. The lifetime risk of breast cancer based on the Tyrer-Cuzick Model is 3.2%. COMPARISON: Mammography: June 16, 2021 and studies dating back to October 21, 2015 TECHNIQUE: Digital breast tomosynthesis is performed in both the craniocaudal and mediolateral oblique views along with computer-aided detection (CAD). Synthesized 2D images are generated from the tomosynthesis. FINDINGS: The breasts are heterogeneously dense, which may obscure small masses (ACR BI-RADS breast composition Category c). There are no significant masses, abnormal calcifications, or other abnormalities. MM/MM tomosynthesis screening BI IMPRESSION: No significant changes from prior exam. ASSESSMENT: BI-RADS 1: Negative RECOMMENDATION: Routine annual mammography screening. This patient's information was entered into a reminder system with a target due date for their next mammogram.
== END 2022-06-22 10:42 | disposition home or self-care (01) ==
LOC: HO.MAMMO 10:41
PROVIDERS: PCP Internal Medicine; Visit Provider Internal Medicine
DX: Z12.31 Encounter for screening mammogram for malignant neoplasm of breast (principal)
CPT/HCPCS: 77063; 77067

== ENCOUNTER 2022-07-16 14:54 | Outpatient (REF) | payer OTHER, SELFPAY ==
[2022-07-16 15:16] LABS: MANUAL DIFF FLAG NO
[2022-07-16 15:30] LABS: Basophils Percent Auto 0.8 % (0-2); Eosinophils Absolute Auto 0.1 X10*3/uL (0.0-0.4); Eosinophils Percent Auto 1.6 % (0-4); Hematocrit 39.3 % (37.0-47.0); Hemoglobin 12.3 g/dl (12.0-16.0); Imm Gran Abs Auto 0.01 X10*3/uL (0.00-0.03); Imm Gran Pct Auto 0.2 % (0.0-0.4); Lymphocytes Absolute Auto 1.8 X10*3/uL (1.2-4.9); Lymphocytes Percent Auto 35.9 % (20-40); Mean Corpuscular HGB Conc 31.3 g/dl (31.0-35.0); Mean Corpuscular Hemoglobin 25.6 pg (27.0-33.0); Mean Corpuscular Volume 81.7 fL (80.0-98.0); Mean Platelet Volume 9.6 fL (9.4-12.3); Monocytes Absolute Auto 0.4 X10*3/uL (0.1-1.2); Monocytes Percent Auto 8.6 % (2-11); Neutrophils Absolute Auto 2.7 x10*3/uL (2.0-8.3); Neutrophils Percent Auto 52.9 % (45-73); Platelet Count 264 X10*3/uL (160-400); Red Blood Count 4.81 X10*6/uL (4.20-5.50); Red Cell Distribution Width 15.6 % (11.0-16.0); White Blood Count 5.1 X10*3/uL (4.8-10.8)
[2022-07-16 16:01] LABS: Alanine Aminotransferase 10 U/L (0-31); Alkaline Phosphatase 132 U/L (39-117); Anion Gap 10 (12-20); Aspartate Amino Transferase 14 U/L (5-31); Bilirubin Total 0.7 mg/dL (0.0-1.0); Blood Urea Nitrogen 10 mg/dL (9-16); C Reactive Protein 0.56 mg/dL (< or = 0.50); Calcium 9.3 mg/dL (8.4-10.2); Carbon Dioxide 28 mmol/L (22-29); Chloride 106 mmol/L (96-108); Estimated Glomerular Filt Rate > 60; Glucose Random 91 mg/dL (60-115); Phosphorus 3.9 mg/dL (2.7-4.5); Sodium 140 mmol/L (135-145); Total Protein 6.6 g/dL (6.5-8.0)
[2022-07-16 16:25] LABS: Erythrocyte Sedimentation Rate 11 MM/HR (0-20)
== END 2022-07-16 14:55 | disposition home or self-care (01) ==
LOC: HO.LAB 14:54
PROVIDERS: PCP Nurse Practitioner Family; Visit Provider Nurse Practitioner Family
DX: M81.0 Age-related osteoporosis without current pathological fracture (principal); M05.9 Rheumatoid arthritis with rheumatoid factor, unspecified; Z79.899 Other long term (current) drug therapy
CPT/HCPCS: 36415; 80053; 84100; 85025; 85652; 86140

== ENCOUNTER → 2022-07-22 14:42 | Outpatient (BNVA) | payer OTHER, SELFPAY | PROVIDERS: PCP Internal Medicine; Visit Provider Nurse Practitioner Family | DX: Z13.89 Encounter for screening for other disorder (principal) ==

== ENCOUNTER → 2022-08-16 09:44 | Outpatient (BNVA) | payer OTHER, SELFPAY | PROVIDERS: PCP Internal Medicine; Visit Provider Internal Medicine Gastroenterology ==

== ENCOUNTER 2022-10-26 15:42 | Outpatient (REF) | payer OTHER, SELFPAY ==
[2022-10-26 15:53] LABS: MANUAL DIFF FLAG NO
[2022-10-26 17:58] LABS: Basophils Absolute Auto 0.1 X10*3/uL (0.0-0.2); Basophils Percent Auto 0.9 % (0-2); Eosinophils Absolute Auto 0.1 X10*3/uL (0.0-0.4); Eosinophils Percent Auto 2.3 % (0-4); Hematocrit 42.5 % (37.0-47.0); Hemoglobin 13.2 g/dl (12.0-16.0); Imm Gran Abs Auto 0.01 X10*3/uL (0.00-0.03); Imm Gran Pct Auto 0.2 % (0.0-0.4); Lymphocytes Absolute Auto 1.9 X10*3/uL (1.2-4.9); Lymphocytes Percent Auto 35.3 % (20-40); Mean Corpuscular HGB Conc 31.1 g/dl (31.0-35.0); Mean Corpuscular Volume 83.7 fL (80.0-98.0); Mean Platelet Volume 10.5 fL (9.4-12.3); Monocytes Absolute Auto 0.5 X10*3/uL (0.1-1.2); Monocytes Percent Auto 8.5 % (2-11); Neutrophils Absolute Auto 2.8 x10*3/uL (2.0-8.3); Neutrophils Percent Auto 52.8 % (45-73); Platelet Count 290 X10*3/uL (160-400); Red Blood Count 5.08 X10*6/uL (4.20-5.50); Red Cell Distribution Width 15.1 % (11.0-16.0); White Blood Count 5.3 X10*3/uL (4.8-10.8)
[2022-10-26 18:51] LABS: Alanine Aminotransferase 12 U/L (0-31); Aspartate Amino Transferase 16 U/L (5-31); C Reactive Protein 0.32 mg/dL (< or = 0.50); Erythrocyte Sedimentation Rate 10 MM/HR (0-20); Estimated Glomerular Filt Rate > 60
[2022-10-26 19:08] LABS: Vitamin D 25-OH Total 24.8 ng/mL (>30)
== END 2022-10-26 15:43 | disposition home or self-care (01) ==
LOC: HO.LAB 15:42
PROVIDERS: PCP Internal Medicine; Visit Provider Nurse Practitioner Family
DX: M81.0 Age-related osteoporosis without current pathological fracture (principal); M05.9 Rheumatoid arthritis with rheumatoid factor, unspecified; Z79.899 Other long term (current) drug therapy
CPT/HCPCS: 36415; 82306; 82565; 84450; 84460; 85025; 85652; 86140

== ENCOUNTER 2022-11-02 10:53 | Outpatient (REF) | payer OTHER, SELFPAY ==
--- NOTE | ~2022-11-02 | XR_ITS ---
EXAMINATION: XR lumbar spine 4V min, XR thoracic spine 3V CLINICAL INFORMATION: Pain COMPARISON: None TECHNIQUE: 3 views of the thoracic spine and 5 views of the lumbar spine FINDINGS: THORACIC SPINE: Vertebral body heights are maintained. Thoracic kyphosis. Moderate multilevel degenerative disc disease with loss of disc space height. Osteopenia. Paravertebral soft tissues are unremarkable. LUMBAR SPINE: Transitional anatomy with a broad-based right L5 transverse process pseudoarticulating with the sacrum. Vertebral body heights are maintained. Alignment is maintained. No pars defects. Osteopenia. Mild degenerative disc disease at L5-S1 with loss of disc space height and facet arthropathy. Paravertebral soft tissues are unremarkable. XR/XR thoracic spine 3V IMPRESSION: THORACIC SPINE: Moderate multilevel degenerative disc disease with loss of disc space height. Osteopenia. LUMBAR SPINE: 1. Transitional anatomy with a broad-based right L5 transverse process pseudoarticulating with the sacrum. If intervention is being considered recommend total spine radiographs to ensure accurate numbering. 2. Mild degenerative disc disease at L5-S1 with loss of disc space height and facet arthropathy.
--- NOTE | ~2022-11-02 | XR_ITS ---
EXAMINATION: XR hand wrist LT, XR hand wrist RT CLINICAL INFORMATION: Rheumatoid arthritis COMPARISON: Hand and wrist radiographs 07/13/2018 TECHNIQUE: 4 views of the bilateral hands and wrists FINDINGS: RIGHT HAND AND WRIST: No fracture or dislocation. Mild degenerative changes of the interphalangeal joints similar to prior. No cortical erosion. Soft tissues are unremarkable. LEFT HAND AND WRIST: No fracture or dislocation. Mild degenerative changes of the interphalangeal joint similar to prior. New well corticated osseous fragment along the dorsal aspect of the third distal phalanx which may reflect sequelae of remote avulsion fracture. No cortical erosion. Soft tissues are unremarkable. XR/XR hand wrist RT Impression: 1. Mild degenerative changes of the bilateral interphalangeal joints similar to prior. 2. New well corticated osseous fragment along the dorsal aspect of the left third distal phalanx which may reflect sequelae of remote avulsion fracture. 3. No cortical erosion to favor erosive arthropathy.
--- NOTE | ~2022-11-02 | XR_ITS ---
EXAMINATION: XR hand wrist LT, XR hand wrist RT CLINICAL INFORMATION: Rheumatoid arthritis COMPARISON: Hand and wrist radiographs 07/13/2018 TECHNIQUE: 4 views of the bilateral hands and wrists FINDINGS: RIGHT HAND AND WRIST: No fracture or dislocation. Mild degenerative changes of the interphalangeal joints similar to prior. No cortical erosion. Soft tissues are unremarkable. LEFT HAND AND WRIST: No fracture or dislocation. Mild degenerative changes of the interphalangeal joint similar to prior. New well corticated osseous fragment along the dorsal aspect of the third distal phalanx which may reflect sequelae of remote avulsion fracture. No cortical erosion. Soft tissues are unremarkable. XR/XR hand wrist LT Impression: 1. Mild degenerative changes of the bilateral interphalangeal joints similar to prior. 2. New well corticated osseous fragment along the dorsal aspect of the left third distal phalanx which may reflect sequelae of remote avulsion fracture. 3. No cortical erosion to favor erosive arthropathy.
--- NOTE | ~2022-11-02 | XR_ITS ---
EXAMINATION: XR lumbar spine 4V min, XR thoracic spine 3V CLINICAL INFORMATION: Pain COMPARISON: None TECHNIQUE: 3 views of the thoracic spine and 5 views of the lumbar spine FINDINGS: THORACIC SPINE: Vertebral body heights are maintained. Thoracic kyphosis. Moderate multilevel degenerative disc disease with loss of disc space height. Osteopenia. Paravertebral soft tissues are unremarkable. LUMBAR SPINE: Transitional anatomy with a broad-based right L5 transverse process pseudoarticulating with the sacrum. Vertebral body heights are maintained. Alignment is maintained. No pars defects. Osteopenia. Mild degenerative disc disease at L5-S1 with loss of disc space height and facet arthropathy. Paravertebral soft tissues are unremarkable. XR/XR lumbar spine 4V min IMPRESSION: THORACIC SPINE: Moderate multilevel degenerative disc disease with loss of disc space height. Osteopenia. LUMBAR SPINE: 1. Transitional anatomy with a broad-based right L5 transverse process pseudoarticulating with the sacrum. If intervention is being considered recommend total spine radiographs to ensure accurate numbering. 2. Mild degenerative disc disease at L5-S1 with loss of disc space height and facet arthropathy.
--- NOTE | ~2022-11-02 | XR_ITS ---
EXAMINATION: XR CHEST CLINICAL INFORMATION: Reason for Exam M05.9 - Rheumatoid arthritis with rheumatoid factor, unspecified COMPARISON: None TECHNIQUE: 2 views of the chest FINDINGS: Lines and tubes: None. Clear lungs. No pleural effusion. No pneumothorax. Normal cardiomediastinal silhouette. XR/XR chest 2V IMPRESSION: * Clear lungs.
== END 2022-11-02 10:54 | disposition home or self-care (01) ==
LOC: HO.XRAY 10:53
PROVIDERS: PCP Internal Medicine; Visit Provider Student in an Organized Health Care Education/Training Program
DX: M05.9 Rheumatoid arthritis with rheumatoid factor, unspecified (principal); M54.9 Dorsalgia, unspecified
CPT/HCPCS: 71046; 72072; 72110; 73110; 73130

== ENCOUNTER 2022-11-02 10:53 | Outpatient (AMB) | payer OTHER, SELFPAY ==
[2022-11-02 10:55] VITALS: BP 126/70; PULSE 82; TEMP 36.4; O2SAT 99; BMI 25.2
--- NOTE | 2022-11-02 10:55 | MHC.OFFVIS ---
Intake Vital Signs 11/02/22 10:55 Height 5 ft 4 in Weight 146 lb 13.246 oz BMI 25.2 BP 126/70 Blood Pressure Location Rt brachial Position Sitting Pulse 82 Pulse Source Pulse Oximeter Temp 97.5 F Temp Source Skin Pulse Oximetry (%) 99 Intake Visit Reasons: rheumatoid arthritis Pump Erector Required: No Accompanied by: Self / Same As Patient Allergies No Known Allergies [No Known Allergies*] Allergy (Verified 11/02/22 10:57) Medication List - Last Reconciled 11/02/22 by Gloria Simpson MD acetaminophen ER (Tylenol 8 Hour) 1,300 mg PO Q12H PRN ascorbic acid (vitamin C) 1 g (2 x 500 mg) PO DAILY cholecalciferol (vitamin D3) 50 mcg PO DAILY diphenoxylate-atropine 2.5-0.025 mg (Lomotil) 1 tab PO TID PRN folic acid 1 mg PO DAILY hydroxychloroquine take 1 tab twice daily 5 days a week & 1 tab daily 2 days a week methotrexate sodium 10 mg (4 x 2.5 mg) PO QWEEK omeprazole 20 mg PO BID sodium,potassium,mag sulfates 17.5-3.13-1.6 gram (Suprep Bowel Prep Kit) DILUTE; drink 1/2 at 6-8 pm and half at 11 PM- 1AM triamcinolone acetonide 0.5% 1 appl topical Q OTHER DAY PRN vitamin A palmitate 10,000 units PO DAILY 30 days HPI HPI Comments History of Present Illness Details This is a 67-year-old female with seropositive RA who returns for follow-up. Patient states that she is doing about the same overall. She is having pain and stiffness in both elbows, wrists, ankles. Morning stiffness lasts about 1 hour. She is unaware of any swollen joints. A few weeks ago patient stated that she had relatively abrupt onset of mid back pain. It improved on its own. Continues to take methotrexate 4 tabs once weekly, she mentions that higher doses made her feel different [facility] Medical History Acid reflux Anxiety Anxiety GERD (gastroesophageal reflux disease) Iron deficiency Osteoporosis Pelvic prolapse Polyarthritis Seropositive rheumatoid arthritis Tailor's bunionette, left Surgical History H/O cystoscopy H/O hemorrhoidectomy History of colonoscopy History of esophagogastroduodenoscopy (EGD) Hx of tooth extraction Family History Mother CVD (cardiovascular disease) Father No problems noted. Social History Household Members: Family Household Members Other:: Grandson Housing: Apartment Alcohol intake: never Patient Tobacco Use Status: Former Tobacco user Tobacco use type: Cigarette Cigarettes Per Day: 7 Years Smoked: many e-Cigarette/Vaping Use: Never Used Second Hand Smoke Exposure: No service: No Current occupational status: employed Current occupation: [employer] Cognitive needs: No Hearing needs: No Vision needs: Yes Review of Systems Musc Reports back pain and Reports arthralgias Physical Exam Vital Signs: Last Vital Signs Temp 97.5 F 11/02/22 10:55 Pulse 82 11/02/22 10:55 BP 126/70 11/02/22 10:55 Pulse Ox 99 11/02/22 10:55 BMI result Body Mass Index 25.2 Const General: cooperative, healthy appearing and comfortable Nutritional Appearance: average body habitus Orientation/consciousness: patient oriented x3 Limitations: no limitations HEENT Head: Yes normocephalic and Yes atraumatic Mouth: moist mucous membranes Resp Effort & Inspection: normal respiratory effort and able to speak in complete sentences Auscultation: clear to auscultation bilaterally Cardio Rate: regular rate Rhythm: regular rhythm Neuro General: patient oriented x3 Extrem Other: Left 2nd MCP swelling and tenderness Left 5th PIP tenderness Right 4th PIP tenderness Bilateral knee pain with full flexion No tenderness upon palpation of her thoracic and lumbar spine Assessment & Plan Assessment & Plan (1) Seropositive rheumatoid arthritis: Comment: ++RF+++CCP Methorexate: Dose decreased from 6 tabs weekly to 4 tabs weekly March 2022 to present Code(s): M05.9 - Rheumatoid arthritis with rheumatoid factor, unspecified Plan: This is a 67-year-old female with seropositive RA who returns for follow-up. Currently on 10 mg of methotrexate weekly. Patient has few swollen and tender joints on exam and continues to have 1 hour of morning stiffness. Patient stated that higher doses of methotrexate made her feel different will need to add DMARDs Discussed risks and benefits of hydroxychloroquine. Start hydroxychloroquine 400 mg daily 5 days a week and 200 mg daily 2 days a week Continue methotrexate 10 mg once weekly and folic acid daily Labs before next visit in 3 months (2) assisted methotrexate user: Code(s): Z79.899 - Other retirement (current) drug therapy Plan: Will continue to monitor with frequent blood work. (3) Osteoporosis: Comment: T-score of-3.0 DEXA 04/2022: osteoporosis, T-score-3.8 in the lumbar spine-03/2022 and 06/2022 recommend starting Prolia patient would like to think about this. Code(s): M81.0 - Age-related osteoporosis without current pathological fracture Plan: Discussed with patient, she has severe osteoporosis. Need to start antiresorptive therapy. Discussed risks and benefits of Prolia. Patient agreed to proceed. Will start prior authorization for Prolia She is mentioning abrupt midback pain. Will check x-rays of cervical and lumbar spine to evaluate for a fracture. (4) Long-term use of hydroxychloroquine: Code(s): Z79.899 - Other predatory animal exterminator (current) drug therapy Plan: Discussed risks of retinopathy associated with hydroxychloroquine. Referred patient Ophthalmology for an eye exam Plan I spent 46 minutes reviewing patient's chart, evaluating patient, ordering diagnostic workup, counseling patient and documenting in the chart Orders: Orders XR hand wrist LT Today M05.9 - Rheumatoid arthritis with rheumatoid factor, unspecified XR hand wrist RT Today M05.9 - Rheumatoid arthritis with rheumatoid factor, unspecified XR lumbar spine 4V min Today M54.9 - Dorsalgia, unspecified XR thoracic spine 3V Today M54.9 - Dorsalgia, unspecified Complete Blood Count Auto Diff 3 Months Z79.89 - Other retirement (current) drug therapy Comprehensive Met. Panel 3 Months Z.89 - Other retirement (current) drug therapy C Reactive Protein 3 Months Z79.89 - Other retirement (current) drug therapy Erythrocyte Sedimentation Rate 3 Months Z79.89 - Other predatory animal exterminator (current) drug therapy Hepatitis A,B,C Profile 3 Months Z11.59 - Encounter for screening for other viral diseases T Spot TB 3 Months Z11.7 - Encounter for testing for latent tuberculosis infection Referrals Ophthalmology Referral Z79.89 - Other retirement (current) drug therapy Medications: New hydroxychloroquine take 1 tab twice daily 5 days a week & 1 tab daily 2 days a week 60 tabs 2RF Coding Level of Care Code Est Pt Level 5 (81992) Diagnoses Seropositive rheumatoid arthritis M05.9 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
== END 2022-11-02 11:32 | disposition home or self-care (01) ==
PROVIDERS: PCP Internal Medicine; Visit Provider Student in an Organized Health Care Education/Training Program
DX: M05.79 Rheumatoid arthritis with rheumatoid factor of multiple sites without organ or systems involvement (principal); Z79.899 Other long term (current) drug therapy; M81.0 Age-related osteoporosis without current pathological fracture; M54.9 Dorsalgia, unspecified
CPT/HCPCS: 99215

== ENCOUNTER 2022-11-08 09:59 | Outpatient (AMB) | payer OTHER, SELFPAY ==
--- NOTE | 2022-11-08 10:00 | MHC.PC.OV ---
Vital Signs 11/08/22 10:01 Height 5 ft 4 in Weight 145 lb 4 oz BMI 24.9 BP 110/70 Blood Pressure Location Lt brachial Position Sitting Pulse 82 Pulse Source Pulse Oximeter Pulse Oximetry (%) 97 Oxygen Delivery Method Room Air Intake Visit Reasons: Annual PE, Discuss/Bill ACP Intake Note: Patient is here today for a physical. Spot Sprayer Required: No Checker Dump Grounds: Not Required per policy Accompanied by: Self / Same As Patient Allergies No Known Allergies [No Known Allergies*] Allergy (Verified 11/08/22 10:00) Medication List - Last Reconciled 11/08/22 by Zuhair Valencia MD acetaminophen ER (Tylenol 8 Hour) 1,300 mg PO Q12H PRN ascorbic acid (vitamin C) 1 g (2 x 500 mg) PO DAILY cholecalciferol (vitamin D3) 50 mcg PO DAILY diphenoxylate-atropine 2.5-0.025 mg (Lomotil) 1 tab PO TID PRN folic acid 1 mg PO DAILY hydroxychloroquine take 1 tab twice daily 4 days a week & 1 tab daily 3 days a week methotrexate sodium 10 mg (4 x 2.5 mg) PO QWEEK omeprazole 20 mg PO BID sodium,potassium,mag sulfates 17.5-3.13-1.6 gram (Suprep Bowel Prep Kit) DILUTE; drink 1/2 at 6-8 pm and half at 11 PM- 1AM triamcinolone acetonide 0.5% 1 appl topical Q OTHER DAY PRN vitamin A palmitate 10,000 units PO DAILY 30 days Tobacco use date assessed: 11/08/22 Fall risk assessment: No Falls in past year Last assessed Fall Risk: 11/08/22 Dental Screening Dental Screen Date: 11/08/22 Did you have a dental visit in the last 12 months?: Yes Did you have a dental problem in the last 6 months where you did not have access to dental care?: No Was dental information given to patient?: Patient has dentist HPI Annual PE, Discuss/Bill ACP HPI Details Rheumatoid arthritis; sees rheumatology [facility] Medical History Acid reflux Anxiety Anxiety GERD (gastroesophageal reflux disease) Iron deficiency Osteoporosis Pelvic prolapse Polyarthritis Seropositive rheumatoid arthritis Tailor's bunionette, left Surgical History H/O cystoscopy H/O hemorrhoidectomy History of colonoscopy History of esophagogastroduodenoscopy (EGD) Hx of tooth extraction Family History Mother CVD (cardiovascular disease) Father No problems noted. Social History Household Members: Family Household Members Other:: Grandson Housing: Apartment Alcohol intake: never Patient Tobacco Use Status: Former Tobacco user Tobacco use type: Cigarette Cigarettes Per Day: 7 Years Smoked: many e-Cigarette/Vaping Use: Never Used Second Hand Smoke Exposure: No service: No Current occupational status: employed Current occupation: [employer] Cognitive needs: No Hearing needs: No Vision needs: Yes Questionnaire Thrive Questionnaire Date Thrive assessed: 07/09/22 CB-7 AMB Questionnaire CB-7 Date CB - 7 assessed: 07/09/22 Source: Developed by Drs. Abdon Gallo, Radha Tabares, Chad Osei and colleagues, with an educational joanna from [facility] [employer]. Review of Systems Const Denies chills, Denies fatigue, Denies headache(s) and Denies weight loss Eyes Denies change in vision, Denies diplopia and Denies eye pain ENT Denies vertigo, Denies dizziness, Denies headache(s) and Denies nasal discharge Card Denies chest pain, Denies rapid heart rate and Denies dyspnea on exertion Resp Denies chest congestion, Denies cough, Denies pain with cough and Denies dyspnea on exertion GI Denies abdominal pain, Denies hematochezia and Denies change in bowel habits Musc Denies myalgias, Denies arthralgias and Denies joint swelling Skin/Breast Denies lesions and Denies unusual bruising Neuro Denies vertigo, Denies dizziness, Denies headache(s) and Denies focal weakness Endo Denies fatigue Physical exam (Primary Care) Vital Signs: Last Vital Signs Pulse 82 11/08/22 10:01 BP 110/70 11/08/22 10:01 Pulse Ox 97 11/08/22 10:01 Oxygen Delivery Method Room Air 11/08/22 10:01 BMI result Body Mass Index 24.9 Tobacco/Smoking Status: Tobacco use Status Tobacco use date assessed 11/08/22 11/08/22 10:05 Patient Tobacco Use Status Former Tobacco user 11/08/22 10:05 Tobacco use type Cigarette 11/08/22 10:05 e-Cigarette/Vaping Use Never Used 11/08/22 10:05 Thrive Assessment: Date of Thrive Assessment Date Thrive assessed 07/09/22 11/08/22 10:05 Advance Care Planning discussion: On file, no changes Forms completed: Health Care Proxy Const General: cooperative, healthy appearing and no acute distress Orientation/consciousness: oriented to person, oriented to place and oriented to time HENMT Head: Yes normal to inspection, Yes normocephalic and Yes atraumatic Mouth: Normal oral and palatal mucosa present and tongue normal Throat: Yes posterior oropharynx normal and Yes uvula midline Eyes General: appearance normal, both eyes and all related structures Neck Neck: Yes normal visual inspection, Yes full ROM and Yes no lymphadenopathy Thyroid: Thyroid normal Carotids: normal carotid upstroke Chest Chest palpation & inspection: normal inspection of the chest Resp Effort & Inspection: normal respiratory effort and able to speak in complete sentences Auscultation: clear to auscultation bilaterally Cardio Jugular venous distension: no JVD Palpation: normal PMI Rate: regular rate Rhythm: regular rhythm Heart sounds: S1 normal heart sound present and S2 normal heart sound present GI Inspection: Yes normal to inspection Palpation (GI): Soft to palpation and No hepatosplenomegaly present Auscultation: normal bowel sounds General: Yes no CVA tenderness Back/Spine/Pelvis Back: no CVA tenderness Skin General skin exam: no rashes or lesions noted Neuro General: oriented to person, oriented to place and oriented to time Extrem General: Yes normal to inspection and Yes full ROM Assessment and Plan Assessment & Plan (1) Physical exam: Code(s): Z00.00 - Encounter for general adult medical examination without abnormal findings Plan: stable; do labs (2) Seropositive rheumatoid arthritis: Code(s): M05.9 - Rheumatoid arthritis with rheumatoid factor, unspecified Plan: as per rheum Orders: Orders Comprehensive [place]. Panel Fast Today N28.9 - Disorder of kidney and ureter, unspecified Lipid Panel Today E78.5 - Hyperlipidemia, unspecified Thyroid Stimulating Hormone Today E03.9 - Hypothyroidism, unspecified Complete Blood Count Auto Diff Today D64.9 - Anemia, unspecified Medications: Refilled triamcinolone acetonide 0.5% 1 appl topical Q OTHER DAY PRN 15 grams 3RF Rash Coding Level of Care Code Est Pt Prev Care >65y(35551) Diagnoses Physical exam Z00.00 Seropositive rheumatoid arthritis M05.9 Additional Codes Vital Signs *Quality* - Advance Care Planning discussion: On file, no changes ([id number])
[2022-11-08 10:01] VITALS: BP 110/70; PULSE 82; O2SAT 97; BMI 24.9
== END 2022-11-08 10:15 | disposition home or self-care (01) ==
PROVIDERS: Visit Provider Internal Medicine
DX: Z00.00 Encounter for general adult medical examination without abnormal findings (principal); M05.9 Rheumatoid arthritis with rheumatoid factor, unspecified
CPT/HCPCS: 1123F; 99397

== ENCOUNTER 2022-11-09 11:22 | Outpatient (REF) | payer OTHER, SELFPAY ==
[2022-11-09 11:33] LABS: MANUAL DIFF FLAG NO
[2022-11-09 11:50] LABS: Basophils Percent Auto 0.7 % (0-2); Eosinophils Absolute Auto 0.1 X10*3/uL (0.0-0.4); Hematocrit 42.9 % (37.0-47.0); Hemoglobin 13.3 g/dl (12.0-16.0); Imm Gran Abs Auto 0.01 X10*3/uL (0.00-0.03); Imm Gran Pct Auto 0.2 % (0.0-0.4); Lymphocytes Absolute Auto 1.3 X10*3/uL (1.2-4.9); Lymphocytes Percent Auto 31.4 % (20-40); Mean Corpuscular Hemoglobin 25.4 pg (27.0-33.0); Mean Platelet Volume 9.8 fL (9.4-12.3); Monocytes Absolute Auto 0.4 X10*3/uL (0.1-1.2); Monocytes Percent Auto 8.9 % (2-11); Neutrophils Absolute Auto 2.3 x10*3/uL (2.0-8.3); Neutrophils Percent Auto 56.8 % (45-73); Platelet Count 251 X10*3/uL (160-400); Red Blood Count 5.23 X10*6/uL (4.20-5.50); Red Cell Distribution Width 15.1 % (11.0-16.0); White Blood Count 4.1 X10*3/uL (4.8-10.8)
[2022-11-09 12:21] LABS: Alanine Aminotransferase 10 U/L (0-31); Alkaline Phosphatase 116 U/L (39-117); Anion Gap 10 (12-20); Aspartate Amino Transferase 15 U/L (5-31); Blood Urea Nitrogen 8 mg/dL (9-16); Calcium 9.3 mg/dL (8.4-10.2); Carbon Dioxide 28 mmol/L (22-29); Chloride 107 mmol/L (96-108); Cholesterol 238 mg/dL; Estimated Glomerular Filt Rate > 60; Glucose Fasting 93 mg/dL (60-99); HDL Cholesterol 91 mg/dL; LDL Cholesterol Calculated 135 mg/dl; Potassium 3.7 mmol/L (3.3-5.1); Sodium 141 mmol/L (135-145); Total Protein 7.2 g/dL (6.5-8.0); Triglycerides 61 mg/dL
[2022-11-09 12:40] LABS: Thyroid Stimulating Hormone 0.71 uIU/mL (0.32-4.0)
== END 2022-11-09 11:23 | disposition home or self-care (01) ==
LOC: HO.LAB 11:22
PROVIDERS: PCP Internal Medicine; Visit Provider Internal Medicine
DX: N28.9 Disorder of kidney and ureter, unspecified (principal); E03.9 Hypothyroidism, unspecified; E78.5 Hyperlipidemia, unspecified; D64.9 Anemia, unspecified
CPT/HCPCS: 36415; 80053; 80061; 84443; 85025

== ENCOUNTER 2023-01-13 06:32 | Day surgery (SDC) | payer OTHER, SELFPAY ==
[2023-01-11 14:15] VITALS: BMI 24.9
--- NOTE | 2023-01-12 13:57 | HO.ANESPROP2 ---
Documented by User: Jeanne Collins NP 01/12/23 13:59 HPI - Anesthesia Eval Consult details Narrative: 67yo F for Upper Endoscopy and Colonoscopy PMFSH Active Problems Active Problems: All Active Problems (Updated 11/08/22 @ 10:20 by Zuhair Valencia MD) Encounter for testing for latent tuberculosis infection (Acute) Screening for viral disease (Acute) Back pain (Acute) Long-term use of hydroxychloroquine (Acute) Osteoporosis (Acute) Vitamin A deficiency (Acute) Vitamin C deficiency (Acute) COVID-19 virus RNA test result positive at limit of detection (Acute) Cough (Acute) Encounter for screening mammogram for malignant neoplasm of breast (Acute) Encounter for annual routine gynecological examination (Acute) Diarrhea (Acute) Epigastric abdominal pain (Acute) Anxiety (Acute) Physical exam (Acute) Tubular adenoma (Acute) long-term methotrexate user (Acute) Encounter for screening colonoscopy (Acute) Vitamin D deficiency (Acute) Acid reflux (Acute) Seropositive rheumatoid arthritis (Acute) Past Medical History Medical History Acid reflux Anxiety Anxiety GERD (gastroesophageal reflux disease) Iron deficiency Osteoporosis Pelvic prolapse Polyarthritis Seropositive rheumatoid arthritis Tailor's bunionette, left Family History Family History Mother CVD (cardiovascular disease) Father No problems noted. Family history of problems with anesthesia: No Surgical History Surgical History H/O cystoscopy H/O hemorrhoidectomy History of colonoscopy History of esophagogastroduodenoscopy (EGD) Hx of tooth extraction History of Problems with Anesthesia: No Social History Social History Household Members: Family Household Members Other:: Grandson Housing: Apartment Alcohol intake: never Patient Tobacco Use Status: Former Tobacco user Tobacco use type: Cigarette Cigarettes Per Day: 7 Years Smoked: many e-Cigarette/Vaping Use: Never Used Second Hand Smoke Exposure: No service: No Current occupational status: employed Current occupation: [employer] Cognitive needs: No Hearing needs: No Vision needs: Yes Meds Allergies Allergy/AdvReac Type Severity Reaction Status Date / Time No Known Allergies Allergy Verified 11/08/22 10:00 [No Known Allergies*] Home Medications Medication Instructions Recorded Confirmed Last Taken Type acetaminophen 650 mg 1,300 mg PO Q12H PRN Pain, Moderate 01/24/20 11/08/22 Unknown History tablet,extended release (Tylenol 8 Hour) diphenoxylate-atropine 2.5 1 tab PO TID PRN diarrhea 08/16/22 11/08/22 Unknown History mg-0.025 mg tablet (Lomotil) Exam Exam Date and Time: January 12, 2023 1357 Height,Weight and Vital Signs: Height 5 ft 4 in Weight 65.771 kg Pertinent Lab Results Pertinent Lab Results: Laboratory Tests 11/09/22 11:32 WBC 4.1 L Hgb 13.3 Hct 42.9 Plt Count 251 Sodium 141 Potassium 3.7 Chloride 107 Carbon Dioxide 28 BUN 8 L Creatinine 0.79 Assessment and Plan Assessment Anesthesia Assessment: Chart Reviewed Final Anesthetic Review Family History of Problems with Anesthesia: No History of Problems with Anesthesia: No Documented by User: Cameron Jones MD 01/13/23 18:18 [facility] Past Medical History Medical History Acid reflux Anxiety Anxiety GERD (gastroesophageal reflux disease) Iron deficiency Osteoporosis Pelvic prolapse Polyarthritis Seropositive rheumatoid arthritis Tailor's bunionette, left Functional capacity: independent ambulation Family History Family History Mother CVD (cardiovascular disease) Father No problems noted. Surgical History Surgical History H/O cystoscopy H/O hemorrhoidectomy History of colonoscopy History of esophagogastroduodenoscopy (EGD) Hx of tooth extraction Social History Social History Household Members: Family Household Members Other:: Grandson Housing: Apartment Alcohol intake: never Patient Tobacco Use Status: Former Tobacco user Tobacco use type: Cigarette Cigarettes Per Day: 7 Years Smoked: many e-Cigarette/Vaping Use: Never Used Second Hand Smoke Exposure: No service: No Current occupational status: employed Current occupation: [employer] Cognitive needs: No Hearing needs: No Vision needs: Yes Meds Allergies Allergy/AdvReac Type Severity Reaction Status Date / Time No Known Allergies Allergy Verified 11/08/22 10:00 [No Known Allergies*] Home Medications Medication Instructions Recorded Confirmed Last Taken Type acetaminophen 650 mg 1,300 mg PO Q12H PRN Pain, Moderate 01/24/20 11/08/22 Unknown History tablet,extended release (Tylenol 8 Hour) diphenoxylate-atropine 2.5 1 tab PO TID PRN diarrhea 08/16/22 11/08/22 Unknown History mg-0.025 mg tablet (Lomotil) Exam Airway Mallampati Class: IV Denture: Upper Loose/Missing/Broken Teeth: Yes Assessment and Plan Assessment Anesthesia Assessment: Anesthesia Plan Discussed Final Anesthetic Review NPO: Yes ASA Class: III Final Preanesthetic Review: Meds/Allgs Chart Reviewed, Consent Obtained/Reviewed and Anes Risks/Benef Reviewed Patient Risk: Intermediate Procedure Risk: Intermediate Anesthetic Plan Anesthetic Plan: MAC: and Agree w/ Assess. and Plan Disposition: Standard PACU
--- NOTE | 2023-01-13 06:37 | MHC.SHP ---
Pre-Procedural Eval Section A Date of Service: 01/13/23 Section B Chief Complaint: gerd,Personal history of colonic polyps Relevant Family History (Specify if Yes): No Relevant Social History: None Present Medications: see Short Stay Collaborative assessment Medical History: Significant History (Acid reflux Anxiety Anxiety GERD (gastroesophageal reflux disease) Iron deficiency Osteoporosis Pelvic prolapse Polyarthritis Seropositive rheumatoid arthritis Nik'laurie arreola, left) History of Previous Operations: Relevant previous surgery/procedure and date(s) (H/O cystoscopy H/O hemorrhoidectomy History of colonoscopy History of esophagogastroduodenoscopy (EGD) Hx of tooth extraction) Allergies: Allergies Allergy/AdvReac Type Severity Reaction Status Date / Time No Known Allergies Allergy Verified 11/08/22 10:00 [No Known Allergies*] Review of Systems Sugical H&P ROS: Negative: Constitution, Cardiovascular, Respiratory, Neurological, Psychiatric, Hem-Onc, Allergic/Immunologic, Gastrointestinal, Genitourinary, Musculoskeletal, Integumentary, Endocrine and Eyes/Ears/Nose/Throat Exam Surgical H&P Exam: Normal: HEENT, Normal: Heart, Normal: Lungs, Normal: Extremities, Normal: Abdomen, Normal: Skin and Normal: Neurological Plan Diagnosis/Plan: Unchanged I have reviewed the history and physical and performed a pertinent physical examination on my patient. No changes have occurred unless specified. Time Spent With Patient Time: Total time managing care of this patient today ____ minutes.
[2023-01-13] MEDS: Lactated Ringers 1,000 ML 100 ML IVCONT (06:56)
[2023-01-13 07:07] VITALS: BP 153/75; PULSE 87; RESP 18; TEMP 36.8; O2SAT 98
[2023-01-13] MEDS: Sodium Phosphate,Mono-Dibasic 133 ML ENEMA PR (07:45)
--- NOTE | 2023-01-13 08:29 | W.PM.OPN ---
Operative Note Operative Note Date of Service: 01/13/23 Narrative: Operative Information Procedure Description: EGD, Colonoscopy Indication: choking and colon screening Anesthesia: MAC FLEXIBLE TRANSORAL UPPER GASTROINTESTINAL ENDOSCOPY AND COLONOSCOPY PROCEDURE NOTE UPPER ENDOSCOPY Consent: Indications for the procedure and potential complications of bleeding, perforation, reaction to medications and missed diagnosis were discussed with the patient and informed consent was obtained. Instrument: Olympus GIF H 190 J mid size upper endoscope Monitoring: Vital signs and clinical assessment, continuous EKG monitoring, Pulse oximetry, Carbon Dioxide monitoring and blood pressure monitoring were done throughout the procedure. Procedure: The patient was placed in the left lateral decubitis position and pre-procedure medications were administered and a bite block was placed. The endoscope was inserted into the mouth and advanced under direct vision to the third part of duodenum. A careful inspection was made as the upper endoscope was withdrawn including a retroflexed examination of the proximal stomach; Findings and interventions are described below. Findings: Larynx:normal Esophagus: GE junction at 33 cm, diaphragm hiatus at 36 cm, consistent with 3 cm sliding hiatal hernia, irregular Z line with esophagitis, bx taken. Balloon dilation done at U[facility] to 18 mm with slight superficial tear seen, also done at LES with no tear seen. Stomach: Few fundic gland polyps noted with some patchy erythema. Biopsies were obtained. Grade 2 flap valve on retroflexed examination of the cardia. One area in the cardia with nodularity so bx taken Duodenum: Normal bulb and descending duodenum, Intervention: Biopsies as noted above, balloon dilation COLONOSCOPY Instrument: Olympus variable stiffness pediatric scope 190L Colonoscopy Monitoring: Vital signs and clinical assessment, continuous EKG monitoring, Pulse oximetry, Carbon Dioxide monitoring and blood pressure monitoring were done throughout the procedure. Colon withdrawal time was 10 minutes. Procedure: The patient was placed in the left lateral decubitis position and pre-procedure medications were administered. After a digital rectal examination of the ano-rectum, the video colonoscope was inserted into the rectum and advanced through the colon to the cecum/TI. The colonoscope was slowly withdrawn in a retrograde panoramic fashion and the colon mucosa was carefully examined including a retroflexed view of the rectum. Findings and interventions are described below. Procedure Difficulty:easy Findings: Terminal Ileum-normal Cecum:normal Ascending Colon: normal Transverse Colon -normal Descending Colon:normal Sigmoid Colon: normal Rectum: Retroflexion with small internal hemorrhoids, grade I Anorectum - normal Colon preparation: [place] Bowel Preparation Scale Right colon; 2 Transverse colon: 3 Left colon; 2 (0 = Unprepared colon segment with mucosa not seen due to solid stool that cannot be cleared. 1 = Portion of mucosa of the colon segment seen, but other areas of the colon segment not well seen due to staining, residual stool and/or opaque liquid. 2 = Minor amount of residual staining, small fragments of stool and/or opaque liquid, but mucosa of colon segment seen well. 3 = Entire mucosa of colon segment seen well with no residual staining, small fragments of stool or opaque liquid) Impression and Post Procedure Diagnosis: Endoscopy Findings: esophagitis hiatal hernia gastritis fundic gland polyps esophageal stricture Colonoscopy Findings: internal hemorrhoids Plan: Await Pathology results Repeat Colonoscopy in 5 years due to prior hx of polyps or earlier if clinically indicated High fiber diet leaflet avoid straining at stool, epsom salts and sitz bath, anusol supps or cream Above findings were reviewed with the patient and relevant handouts were provided if indicated.
[2023-01-13 09:15] VITALS: BP 149/79; PULSE 77; RESP 14; TEMP 36.1; O2SAT 100
[2023-01-13] MEDS: Acetaminophen 325 MG TABLET 975 MG PO (09:29)
[2023-01-13] MEDS: Mag&Al/Sim/Diphenhyd/Lidocaine 10 ML ORAL.SUSP PO (09:30)
[2023-01-13 09:31] VITALS: BP 148/82; PULSE 73; RESP 18; TEMP 36.2; O2SAT 100
== END 2023-01-13 10:08 | disposition home or self-care (01) ==
PROVIDERS: PCP Internal Medicine; Visit Provider Internal Medicine Gastroenterology
PROC: (CPT 43239; principal; 2023-01-13 07:30)
DX: K31.7 Polyp of stomach and duodenum (principal); K20.90 Esophagitis, unspecified without bleeding; K44.9 Diaphragmatic hernia without obstruction or gangrene; K22.9 Disease of esophagus, unspecified; K21.9 Gastro-esophageal reflux disease without esophagitis; K64.0 First degree hemorrhoids; Z86.010 Personal history of colon polyps; F41.9 Anxiety disorder, unspecified; E61.1 Iron deficiency; M05.9 Rheumatoid arthritis with rheumatoid factor, unspecified; Z87.891 Personal history of nicotine dependence; Z79.899 Other long term (current) drug therapy
CPT/HCPCS: 43239; 43249; 45378; 88305; 88342; C1726; J2250

== ENCOUNTER → 2023-01-13 06:32 | Outpatient (BNV) | payer OTHER, SELFPAY | PROVIDERS: PCP Internal Medicine; Visit Provider Internal Medicine Gastroenterology | DX: Z12.11 Encounter for screening for malignant neoplasm of colon (principal); K64.0 First degree hemorrhoids; K22.2 Esophageal obstruction; K31.7 Polyp of stomach and duodenum; K29.70 Gastritis, unspecified, without bleeding | CPT/HCPCS: 43239; 43249; 45378 ==

== ENCOUNTER 2023-01-24 08:58 | Outpatient (AMB) | payer OTHER, SELFPAY ==
--- NOTE | 2023-01-24 09:02 | MHC.OFFVIS ---
Intake Vital Signs 01/24/23 09:04 Height 5 ft 4 in Weight 147 lb 11.355 oz BMI 25.4 BP 146/72 H Blood Pressure Location Lt brachial Position Sitting Pulse 71 Intake Visit Reasons: s/p egd/colon Intake Note: Yaneth presents in the office as a follow up colo and egd. CC: She states that so far everything feels okay no concerns. Digital Photo Printer Required: No Allergies No Known Allergies [No Known Allergies*] Allergy (Verified 01/24/23 09:04) HPI s/p egd/colon HPI Details 67 yr F w hx of? seropositive RA (RF++ CCP++) presents for follow-up RECAP: Being seen for GERD and hx of polyps colonoscopy 06/2020--poor prep, tubular adenomas removed she had v low Vit a and Vit C--sent supplements for her EGD/colo:01/17 Endoscopy Findings: esophagitis hiatal hernia gastritis fundic gland polyps esophageal stricture Colonoscopy Findings: internal hemorrhoids path; focal intestinal metaplasia GEJ INTERIM: she is still on MTX, unsure how effective it is she has reflux controlled with omeprazole no further choking, food going down easily she has no epigastric pain no constipation no nausea or vomiting she is taking Vit A and D supplements EXAM: GENERAL: The patient is well developed and nontoxic. VITAL SIGNS:see workflow HEENT: Nonicteric sclerae, PERRLA, EOMI. Oropharynx clear. Moist mucous membranes. Conjunctivae appear well perfused. No thyroid mass. CHEST: Chest wall is nontender. HEART: Regular rate and rhythm without murmurs. LUNGS: Clear to auscultation bilaterally. ABDOMEN: Soft, positive bowel sounds, nontender, no organomegaly.no flank tenderness SKIN: No rash, no excessive bruising, petechiae, or purpura. NEUROLOGIC: Cranial nerves II-XII intact without motor/sensory deficit. a/P: 1/ Hx of polyps, next colo 5 yrs 2/ nutritional def, on Vit A and D 3/ choking and reflux-better now after dilation 4/ Barretts, small area PLAN: 1/ Repeat colonsocopy along with EGD in about 5 yrs, can do earlier if needed 2/ cont with omeprazole, cont with supplements and take daily multi vitamin PFSH Medical History Acid reflux Anxiety Anxiety GERD (gastroesophageal reflux disease) Iron deficiency Osteoporosis Pelvic prolapse Polyarthritis Seropositive rheumatoid arthritis Alondra arreola, kelvin Surgical History H/O cystoscopy H/O hemorrhoidectomy History of colonoscopy History of esophagogastroduodenoscopy (EGD) Hx of tooth extraction Family History Mother CVD (cardiovascular disease) Father No problems noted. Social History Household Members: Family Household Members Other:: Grandson Housing: Apartment Alcohol intake: never Patient Tobacco Use Status: Former Tobacco user Tobacco use type: Cigarette Cigarettes Per Day: 7 Years Smoked: many e-Cigarette/Vaping Use: Never Used Second Hand Smoke Exposure: No service: No Current occupational status: employed Current occupation: [email or web address] Cognitive needs: No Hearing needs: No Vision needs: Yes Physical Exam Vital Signs: Last Vital Signs Pulse 71 01/24/23 09:04 BP 146/72 H 01/24/23 09:04 BMI result Body Mass Index 25.4 Assessment & Plan Assessment & Plan (1) Tubular adenoma: Comment: Repeat colonoscopy1-2 years-fair prep Code(s): D36.9 - Benign neoplasm, unspecified site (2) Vitamin D deficiency: Code(s): E55.9 - Vitamin D deficiency, unspecified (3) Acid reflux: Comment: stable; cont on rx Code(s): K21.9 - Gastro-esophageal reflux disease without esophagitis Coding Level of Care Code Est Pt Level 3 (21817) Diagnoses Tubular adenoma D36.9 Vitamin D deficiency E55.9 Acid reflux K21.9
[2023-01-24 09:04] VITALS: BP 146/72; PULSE 71; BMI 25.4
== END 2023-01-24 09:45 | disposition home or self-care (01) ==
PROVIDERS: PCP Internal Medicine; Visit Provider Internal Medicine Gastroenterology
DX: D36.9 Benign neoplasm, unspecified site (principal); E55.9 Vitamin D deficiency, unspecified; K21.9 Gastro-esophageal reflux disease without esophagitis
CPT/HCPCS: 99213

== ENCOUNTER → 2023-01-24 08:58 | Outpatient (BNVA) | payer OTHER, SELFPAY | PROVIDERS: PCP Internal Medicine; Visit Provider Internal Medicine Gastroenterology ==

== ENCOUNTER 2023-01-25 09:22 | Outpatient (AMB) | payer OTHER, SELFPAY ==
[2023-01-25 09:23] VITALS: BP 134/60; PULSE 75; O2SAT 99; BMI 25.6
--- NOTE | 2023-01-25 09:23 | A.OFFPC_ITS ---
Vital Signs 01/25/23 09:23 Height 5 ft 4 in Weight 149 lb BMI 25.6 BP 134/60 Blood Pressure Location Lt brachial Position Sitting Pulse 75 Pulse Source Pulse Oximeter Pulse Oximetry (%) 99 Oxygen Delivery Method Room Air Intake Visit Reasons: Colonoscopy & Endoscopy Follow Up Allergies No Known Allergies [No Known Allergies*] Allergy (Verified 01/25/23 09:24) Medication List - Last Reconciled 01/25/23 by Zuhair Valencia MD acetaminophen ER (Tylenol 8 Hour) 1,300 mg PO Q12H PRN ascorbic acid (vitamin C) 1 g (2 x 500 mg) PO DAILY cholecalciferol (vitamin D3) (Vitamin D3) 50 mcg PO DAILY folic acid 1 mg PO DAILY hydroxychloroquine take 1 tab twice daily 4 days a week & 1 tab daily 3 days a week methotrexate sodium 10 mg (4 x 2.5 mg) PO QWEEK omeprazole 20 mg PO BID triamcinolone acetonide 0.5% 1 appl topical Q OTHER DAY PRN vitamin A palmitate 10,000 units PO DAILY 30 days Tobacco use date assessed: 11/08/22 Fall risk assessment: No Falls in past year Last assessed Fall Risk: 01/25/23 Dental Screening Dental Screen Date: 01/25/23 Did you have a dental visit in the last 12 months?: Yes Did you have a dental problem in the last 6 months where you did not have access to dental care?: No Was dental information given to patient?: Patient has dentist HPI Colonoscopy & Endoscopy Follow Up HPI Details had a colonoscopy which was normal and an ugi endoscopy which revealed a HH; feels well PFSH Medical History Pelvic prolapse Anxiety Anxiety Acid reflux Osteoporosis Tailor's bunionette, left Polyarthritis GERD (gastroesophageal reflux disease) Iron deficiency Seropositive rheumatoid arthritis Surgical History History of esophagogastroduodenoscopy (EGD) Hx of tooth extraction History of colonoscopy H/O cystoscopy H/O hemorrhoidectomy Family History Mother CVD (cardiovascular disease) Father No problems noted. Social History (Reviewed 01/25/23 @ 09:24 by ELIOT Mckeon Household Members: Family Household Members Other:: Grandson Housing: Apartment Alcohol intake: never Patient Tobacco Use Status: Former Tobacco user Tobacco use type: Cigarette Cigarettes Per Day: 7 Years Smoked: many e-Cigarette/Vaping Use: Never Used Second Hand Smoke Exposure: No service: No Current occupational status: employed Current occupation: [employer] Cognitive needs: No Hearing needs: No Vision needs: Yes Questionnaire PHQ-9 Over the last 2 weeks, how often have you been bothered by any of the following problems? 1. Little interest or pleasure in doing things: not at all 2. Feeling down, depressed, or hopeless: several days 3. Trouble falling or staying asleep, or sleeping too much: nearly every day 4. Feeling tired or having little energy: several days 5. Poor appetite or overeating: several days 6. Feeling bad about yourself - or that you are a failure or have let yourself or your family down: several days 7. Trouble concentrating on things, such as reading the newspaper or watching television: not at all 8. Moving or speaking so slowly that other people could have noticed. Or the opposite - being so fidgety or restless that you have been moving around a lot more than usual: not at all 9. Thoughts that you would be better off or of hurting yourself in some way: not at all Total score: 7 Depression Screening Interpretation: Positive Depression Screening Follow-up: Existing condition and Declines treatment Depression Screening Done: Yes 82121 - PHQ-9 Billing: Yes Source: Developed by Drs. Abdon Gallo, Chad Rinaldi and colleagues, with an educational joanna from [email or web address]. Thrive Questionnaire Date Thrive assessed: 07/09/22 AUDIT C Alcohol Use Questionnaire (AUDIT-C) 1. How often do you have a drink containing alcohol?: Never 3. How often do you have six or more drinks on one occasion?: Never Total Score: 0 Score Reviewed/Action Taken: Yes CB-7 AMB Questionnaire CB-7 Date CB - 7 assessed: 07/09/22 Source: Developed by Radha Diaz Kurt Kroenke and colleagues, with an educational joanna from [employer] Review of Systems Const Denies chills, Denies headache(s) and Denies weight loss ENT Denies headache(s) Card Denies chest pain, Denies syncope, Denies irregular heart rhythm and Denies dyspnea Resp Denies chest congestion, Denies cough and Denies dyspnea GI Denies abdominal pain, Denies change in stool character, Denies nausea and Denies vomiting Musc Denies deformity and Denies joint swelling Neuro Denies syncope and Denies headache(s) Physical exam (Primary Care) Vital Signs: Last Vital Signs Pulse 75 01/25/23 09:23 BP 134/60 01/25/23 09:23 Pulse Ox 99 01/25/23 09:23 Oxygen Delivery Method Room Air 01/25/23 09:23 BMI result Body Mass Index 25.6 Tobacco/Smoking Status: Tobacco use Status Tobacco use date assessed 11/08/22 01/25/23 09:28 Patient Tobacco Use Status Former Tobacco user 01/25/23 09:28 Tobacco use type Cigarette 01/25/23 09:28 e-Cigarette/Vaping Use Never Used 01/25/23 09:28 PHQ-9: PHQ-9 Score PHQ-9: Total score 7 01/25/23 09:28 Depression Screening Interpretation: Positive Depression Screening Follow-up: Existing condition and Declines treatment Thrive Assessment: Date of Thrive Assessment Date Thrive assessed 07/09/22 01/25/23 09:28 Const General: cooperative, comfortable, no acute distress and alert Neck Neck: Yes no lymphadenopathy Thyroid: Thyroid normal Resp Effort & Inspection: normal respiratory effort Auscultation: clear to auscultation bilaterally Percussion: percussion normal Cardio Jugular venous distension: no JVD Palpation: normal PMI Rate: regular rate Rhythm: regular rhythm Heart sounds: S1 normal heart sound present and S2 normal heart sound present GI Inspection: Yes normal to inspection Palpation (GI): No hepatosplenomegaly present Skin General skin exam: no rashes or lesions noted Extrem General: Yes no clubbing, cyanosis or edema Assessment and Plan Assessment & Plan (1) Hiatal hernia: Code(s): K44.9 - Diaphragmatic hernia without obstruction or gangrene Plan: stable; same rx Coding Level of Care Code Est Pt Level 3 (72860) Diagnoses Hiatal hernia K44.9
== END 2023-01-25 09:42 | disposition home or self-care (01) ==
PROVIDERS: PCP Internal Medicine; Visit Provider Internal Medicine
DX: Z23 Encounter for immunization (principal); K44.9 Diaphragmatic hernia without obstruction or gangrene
CPT/HCPCS: 90471; 90686; 99213

== ENCOUNTER 2023-01-25 09:49 | Outpatient (REF) | payer OTHER, SELFPAY ==
[2023-01-25 10:09] LABS: MANUAL DIFF FLAG NO
[2023-01-25 10:46] LABS: Basophils Percent Auto 0.8 % (0-2); Eosinophils Absolute Auto 0.1 X10*3/uL (0.0-0.4); Eosinophils Percent Auto 2.2 % (0-4); Hematocrit 41.9 % (37.0-47.0); Hemoglobin 12.9 g/dl (12.0-16.0); Imm Gran Abs Auto 0.01 X10*3/uL (0.00-0.03); Imm Gran Pct Auto 0.2 % (0.0-0.4); Lymphocytes Absolute Auto 1.4 X10*3/uL (1.2-4.9); Lymphocytes Percent Auto 27.4 % (20-40); Mean Corpuscular HGB Conc 30.8 g/dl (31.0-35.0); Mean Corpuscular Hemoglobin 25.6 pg (27.0-33.0); Mean Corpuscular Volume 83.1 fL (80.0-98.0); Mean Platelet Volume 10.3 fL (9.4-12.3); Monocytes Absolute Auto 0.4 X10*3/uL (0.1-1.2); Monocytes Percent Auto 8.9 % (2-11); Neutrophils Percent Auto 60.5 % (45-73); Platelet Count 267 X10*3/uL (160-400); Red Blood Count 5.04 X10*6/uL (4.20-5.50); Red Cell Distribution Width 15.4 % (11.0-16.0); White Blood Count 4.9 X10*3/uL (4.8-10.8)
[2023-01-25 11:25] LABS: Erythrocyte Sedimentation Rate 7 MM/HR (0-20)
[2023-01-25 11:28] LABS: Alanine Aminotransferase 9 U/L (0-31); Alkaline Phosphatase 111 U/L (39-117); Anion Gap 11 (12-20); Aspartate Amino Transferase 15 U/L (5-31); Bilirubin Total 0.6 mg/dL (0.0-1.0); Blood Urea Nitrogen 10 mg/dL (9-16); C Reactive Protein 0.31 mg/dL (< or = 0.50); Calcium 9.7 mg/dL (8.4-10.2); Carbon Dioxide 26 mmol/L (22-29); Chloride 108 mmol/L (96-108); Estimated Glomerular Filt Rate > 60; Glucose Random 81 mg/dL (60-115); Potassium 3.4 mmol/L (3.3-5.1); Sodium 142 mmol/L (135-145)
[2023-01-25 11:40] LABS: HBS Num1 0.05 mIU/mL (0-7.99); HBc Num1 0.05 S/CO (0.00-0.79); HBsAGNum1 0.44 S/CO (0.00-0.99); Hepatitis A Antibody IgM 0.32 Index (0-0.79); Hepatitis B Core Antibody Nonreactive (Nonreactive); Hepatitis B Surface Antigen Negative (Negative); ~HepC Num1 0.04 S/CO (0.00-0.79); ~Hepatitis A Antibody IgM Nonreactive (Nonreactive); ~Hepatitis B Surface Antibody NONREACTIVE (Nonreactive); ~Hepatitis C Antibody Nonreactive (Nonreactive)
[2023-01-27 23:03] LABS: TS Negative Control Passed; TS Panel A 0; TS Panel B 0; TS Positive Control Passed; TSpotTB Negative (Negative)
== END 2023-01-25 09:50 | disposition home or self-care (01) ==
LOC: HO.LAB 09:49
PROVIDERS: PCP Internal Medicine; Visit Provider Student in an Organized Health Care Education/Training Program
DX: Z11.7 Encounter for testing for latent tuberculosis infection (principal); Z11.59 Encounter for screening for other viral diseases; Z79.899 Other long term (current) drug therapy; Z72.89 Other problems related to lifestyle
CPT/HCPCS: 36415; 80053; 85025; 85652; 86140; 86481; 86704; 86706; 86709; 86803; 87340

== ENCOUNTER 2023-02-03 14:20 | Outpatient (AMB) | payer OTHER, SELFPAY ==
--- NOTE | 2023-02-03 14:21 | A.OFFVIS_ITS ---
Intake Vital Signs 02/03/23 14:22 Height 5 ft 4 in Weight 150 lb 9.211 oz BMI 25.8 BP 140/82 H Blood Pressure Location Rt brachial Position Sitting Pulse 63 Pulse Source Pulse Oximeter Temp 97.3 F Temp Source Skin Pulse Oximetry (%) 98 Oxygen Delivery Method Room Air Intake Visit Reasons: RA Intake Note: Pt last seen 11/02/22, presents today for follow up and test results. Allergies No Known Allergies [No Known Allergies*] Allergy (Verified 02/03/23 14:25) Medication List - Last Reconciled 02/03/23 by Gloria Simpson MD acetaminophen ER (Tylenol 8 Hour) 1,300 mg PO Q12H PRN ascorbic acid (vitamin C) 1 g (2 x 500 mg) PO DAILY cholecalciferol (vitamin D3) (Vitamin D3) 50 mcg PO DAILY folic acid 1 mg PO DAILY hydroxychloroquine One tab twice daily 5 days a week and 1 tab daily 2 days a week methotrexate sodium 10 mg (4 x 2.5 mg) PO QWEEK omeprazole 20 mg PO BID triamcinolone acetonide 0.5% 1 appl topical Q OTHER DAY PRN vitamin A palmitate 10,000 units PO DAILY 30 days HPI HPI Comments History of Present Illness Details This is a 67-year-old female with seropositive RA who returns for follow-up. She is on methotrexate 10 mg weekly. Last visit hydroxychloroquine was added. She states that she might feel a little bit more fatigued with hydroxychloroquine. But otherwise she feels about the same. She states that she gets intermittent right ankle pain. Worse with going up and down the stairs. Denies any swelling. [facility] Medical History Pelvic prolapse Anxiety Anxiety Acid reflux Osteoporosis Tailor's bunionette, left Polyarthritis GERD (gastroesophageal reflux disease) Iron deficiency Seropositive rheumatoid arthritis Surgical History History of esophagogastroduodenoscopy (EGD) Hx of tooth extraction History of colonoscopy H/O cystoscopy H/O hemorrhoidectomy Family History Mother CVD (cardiovascular disease) Father No problems noted. Social History Household Members: Family Household Members Other:: Grandson Housing: Apartment Alcohol intake: never Patient Tobacco Use Status: Former Tobacco user Tobacco use type: Cigarette Cigarettes Per Day: 7 Years Smoked: many e-Cigarette/Vaping Use: Never Used Second Hand Smoke Exposure: No service: No Current occupational status: employed Current occupation: [employer] Cognitive needs: No Hearing needs: No Vision needs: Yes Review of Systems Musc Reports back pain and Reports arthralgias Physical Exam Vital Signs: Last Vital Signs Temp 97.3 F 02/03/23 14:22 Pulse 63 02/03/23 14:22 BP 140/82 H 02/03/23 14:22 Pulse Ox 98 02/03/23 14:22 Oxygen Delivery Method Room Air 02/03/23 14:22 BMI result Body Mass Index 25.8 Const General: cooperative, healthy appearing and comfortable Nutritional Appearance: average body habitus Orientation/consciousness: patient oriented x3 Limitations: no limitations HEENT Head: Yes normocephalic and Yes atraumatic Mouth: moist mucous membranes Resp Effort & Inspection: normal respiratory effort and able to speak in complete sentences Auscultation: clear to auscultation bilaterally Cardio Rate: regular rate Rhythm: regular rhythm Neuro General: patient oriented x3 Extrem Other: No active synovitis today No knee pain bilaterally with full flexion Negative straight leg raise test bilaterally No tenderness upon palpation of her thoracic and lumbar spine Results Reviewed Results Reviewed: Laboratory Tests 07/16/22 07/16/22 07/16/22 15:14 15:14 15:14 1 Date of Service: 05/21/22 Procedure(s): XR DEXA axial skeleton Accession Number(s): [id number] EXAMINATION: BONE DENSITOMETRY CLINICAL INDICATION: Osteoporosis. COMPARISON: Previous BD dated 05/19/2020 and baseline BD dated 08/09/2003. TECHNIQUE: Using a magnetic.io DXA System (software version: 13.1) manufactured by [employer], dual-energy x-ray absorptiometry was performed of the lumbar spine and left hip. The images are of good technical quality. Summary results are attached. FINDINGS: AP SPINE L2-L3 (excluding L1 and L4): The data of L1-L4 has been changed to exclude the L1 and L4 vertebral bodies, because mild degenerative changes at these levels may cause overestimation of lumbar spine density. Current: BMD 0.745 g/cm2, Z-score -2.1, T-score -3.8, osteoporosis, 8.4% decrease from previous, 30.2% decrease from baseline (<5% change is not significant). Prior: BMD 0.813 g/cm2. Baseline: BMD 1.068 g/cm2. LEFT FEMUR, NECK: Current: BMD 0.630 g/cm2, Z-score -1.3, T-score -2.9, osteoporosis. Prior: BMD 0.762 g/cm2. Baseline: BMD 0.803 g/cm2. LEFT FEMUR, TOTAL: Current: BMD 0.652 g/cm2, Z-score -1.4, T-score -2.8, osteoporosis, 16.3% decrease from previous, 20.1% decrease from baseline (<5% change is not significant). Prior: BMD 0.779 g/cm2. Baseline: BMD 0.816 g/cm2. IDENTIFIED RISK FACTORS: Menopause, height loss, osteoporosis, rheumatoid arthritis. HISTORY OF FRACTURE: None listed. MEDICATIONS: Calcium, vitamin D. MM/XR DEXA axial skeleton IMPRESSION: 1. DIAGNOSIS: Osteoporosis based on the lowest T-score value of -3.8 in the lumbar spine applying World Health Organization criteria.? Ordering Physician: Serena Parish NP Date of Service: 04/30/22 Procedure(s): XR TMJ BI Accession Number(s): [id number] EXAMINATION: XR ANKLE, BILATERAL XR TM JOINT, BILATERAL CLINICAL INFORMATION: Pain.? COMPARISON: None? TECHNIQUE: 3 views each ankle and 5 views bilateral TM joints.? FINDINGS: RIGHT ANKLE: There is no visible acute fracture, dislocation or subluxation seen. The ankle mortise and subtalar joints are normal. The soft tissues are normal. LEFT ANKLE: The ankle mortise and subtalar joints are normal. No visible acute fracture, dislocation or subluxation seen. The soft tissues are normal. BILATERAL TM JOINTS: There is normal symmetry of bilateral TM joints on AP view. On open and closed-mouth projection there is normal translation of bilateral condyles without any bony erosive changes. XR/XR TMJ BI IMPRESSION: Unremarkable bilateral ankle exam. ? Unremarkable bilateral TM joints.? Assessment & Plan Assessment & Plan (1) Seropositive rheumatoid arthritis: Code(s): M05.9 - Rheumatoid arthritis with rheumatoid factor, unspecified Plan: This is a 67-year-old female with seropositive RA who returns for follow-up. On methotrexate 10 mg weekly. Doing much better since hydroxychloroquine was added last visit. There are no swollen or tender joints today. Inflammatory markers are normal. Continue methotrexate 10 mg weekly. Continue folic acid 1 mg daily Continue hydroxychloroquine. Patient currently takes 400 mg 5 days a week and 20 mg 2 days a week. 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 Need to start antiresorptive therapy. We discussed risks and benefits of Prolia. Patient agreed to proceed. Prolia however was denied by insurance. Patient is agreeable to start Reclast. Will arrange for Reclast infusions (4) Long-term use of hydroxychloroquine: Code(s): Z79.899 - Other continuous churn buttermaker (current) drug therapy Plan: Discussed risks of retinopathy associated with hydroxychloroquine. Patient was evaluated by Dr. Figueroa. Follow-up yearly with Ophthalmology Plan I spent 26 minutes reviewing patient's chart, evaluating patient, ordering diagnostic workup, counseling patient and documenting in the chart Orders: Orders 2 Comprehensive Met. Panel 3 Months Z79.899 - Other care home (current) drug therapy Erythrocyte Sedimentation Rate 3 Months Z79.899 - Other care home (current) drug therapy Complete Blood Count Auto Diff 3 Months Z79.899 - Other continuous churn buttermaker (current) drug therapy C Reactive Protein 3 Months Z79.899 - Other care home (current) drug therapy Coding Level of Care Code Est Pt Level 4 (36738) Diagnoses Seropositive rheumatoid arthritis M05.9 FDC methotrexate user Z79.899 Osteoporosis M81.0 Long-term use of hydroxychloroquine Z79.899
[2023-02-03 14:22] VITALS: BP 140/82; PULSE 63; TEMP 36.3; O2SAT 98; BMI 25.8
== END 2023-02-03 15:20 | disposition home or self-care (01) ==
PROVIDERS: PCP Internal Medicine; Visit Provider Student in an Organized Health Care Education/Training Program
DX: M05.79 Rheumatoid arthritis with rheumatoid factor of multiple sites without organ or systems involvement (principal); Z79.899 Other long term (current) drug therapy; M81.0 Age-related osteoporosis without current pathological fracture
CPT/HCPCS: 99214

== ENCOUNTER → 2023-02-03 14:20 | Outpatient (BNVA) | payer OTHER, SELFPAY | PROVIDERS: PCP Internal Medicine; Visit Provider Student in an Organized Health Care Education/Training Program ==

== ENCOUNTER 2023-04-07 13:57 | Outpatient (AMB) | payer OTHER, SELFPAY ==
[2023-04-07 14:00] VITALS: BP 132/74; PULSE 82; O2SAT 98; BMI 26.1
--- NOTE | 2023-04-07 14:00 | MHC.PC.OV ---
Vital Signs 04/07/23 14:00 Height 5 ft 4 in Weight 152 lb BMI 26.1 BP 132/74 Blood Pressure Location Lt brachial Position Sitting Pulse 82 Pulse Source Pulse Oximeter Pulse Oximetry (%) 98 Oxygen Delivery Method Room Air Intake Visit Reasons: sinus issues Intake Note: pt states since 04/03/23 shes had a stuffy nose,a bad cough and lost her voice. also complains of back pain. Gun Stocker Required: No Coremaking Machine Setter: Not Required per policy Accompanied by: Self / Same As Patient Allergies No Known Allergies [No Known Allergies*] Allergy (Verified 04/07/23 14:01) Medication List - Last Reconciled 04/07/23 by Zuhair Valencia MD acetaminophen ER (Tylenol 8 Hour) 1,300 mg PO Q12H PRN ascorbic acid (vitamin C) 1 g (2 x 500 mg) PO DAILY azithromycin take 500 mg today (day 1), then 250 mg for 4 days (days 2-5) PO benzonatate 100 mg PO TID PRN cholecalciferol (vitamin D3) (Vitamin D3) 50 mcg PO DAILY folic acid 1 mg PO DAILY hydroxychloroquine One tab twice daily 5 days a week and 1 tab daily 2 days a week methotrexate sodium 10 mg (4 x 2.5 mg) PO QWEEK omeprazole 20 mg PO BID triamcinolone acetonide 0.5% 1 appl topical Q OTHER DAY PRN vitamin A palmitate 10,000 units PO DAILY 30 days Tobacco use date assessed: 04/07/23 Fall risk assessment: No Falls in past year Last assessed Fall Risk: 04/07/23 Dental Screening Dental Screen Date: 04/07/23 Did you have a dental visit in the last 12 months?: Yes Did you have a dental problem in the last 6 months where you did not have access to dental care?: No Was dental information given to patient?: Patient has dentist HPI sinus issues HPI Details cough for 3 days PFSH Medical History Pelvic prolapse Anxiety Anxiety Acid reflux Osteoporosis Tailor's bunionette, left Polyarthritis GERD (gastroesophageal reflux disease) Iron deficiency Seropositive rheumatoid arthritis Surgical History History of esophagogastroduodenoscopy (EGD) Hx of tooth extraction History of colonoscopy H/O cystoscopy H/O hemorrhoidectomy Family History Mother CVD (cardiovascular disease) Father No problems noted. Social History Household Members: Family Household Members Other:: Grandson Housing: Apartment Alcohol intake: never Patient Tobacco Use Status: Former Tobacco user Tobacco use type: Cigarette Cigarettes Per Day: 7 Years Smoked: many e-Cigarette/Vaping Use: Never Used Second Hand Smoke Exposure: No service: No Current occupational status: employed Current occupation: [employer] Cognitive needs: No Hearing needs: No Vision needs: Yes Questionnaire PHQ-9 Over the last 2 weeks, how often have you been bothered by any of the following problems? 1. Little interest or pleasure in doing things: not at all 2. Feeling down, depressed, or hopeless: several days 3. Trouble falling or staying asleep, or sleeping too much: nearly every day 4. Feeling tired or having little energy: several days 5. Poor appetite or overeating: several days 6. Feeling bad about yourself - or that you are a failure or have let yourself or your family down: several days 7. Trouble concentrating on things, such as reading the newspaper or watching television: not at all 8. Moving or speaking so slowly that other people could have noticed. Or the opposite - being so fidgety or restless that you have been moving around a lot more than usual: not at all 9. Thoughts that you would be better off or of hurting yourself in some way: not at all Total score: 7 Depression Screening Interpretation: Positive Depression Screening Follow-up: Existing condition and Declines treatment Depression Screening Done: Yes 69605 - PHQ-9 Billing: Yes Source: Developed by Drs. Abdon Gallo, Radha Tabares, Chad Osei and colleagues, with an educational joanna from [employer]. Thrive Questionnaire Date Thrive assessed: 04/07/23 I am a: Patient What is your living situation today?: I have a steady place to live Within the past 12 months, did the food you bought not last and you didn't have the money to get more?: Never true Within the past 12 months, did you worry whether your food would run out before you got money to buy more?: Never true Do you have trouble paying for medicines?: No Do you have trouble getting transportation to medical appointments?: No Do you have trouble paying your heating and electricity bill?: No Do you have trouble taking care of your child, family member or friend?: No Do you have trouble with day-to-day activities such as bathing, preparing meals, shopping, managing finances, etc.?: No Are you currently unemployed and looking for a job?: No Are you interested in more education?: No Please select the resources that you would like help with: None AUDIT C Alcohol Use Questionnaire (AUDIT-C) 1. How often do you have a drink containing alcohol?: Never 3. How often do you have six or more drinks on one occasion?: Never Total Score: 0 Score Reviewed/Action Taken: Yes CB-7 AMB Questionnaire CB-7 Date CB - 7 assessed: 04/07/23 Feeling nervous, anxious, or on edge: 0 = Not at all Not being able to stop or control worryin = Not at all Worrying too much about different things: 0 = Not at all Trouble relaxin = Not at all Being so restless that it is hard to sit still: 0 = Not at all Becoming easily annoyed or irritable: 0 = Not at all Feeling afraid as if something awful might happen: 0 = Not at all Total CB-7 score (0-4 normal; 5-9 mild; 10-14 moderate; 15-21 severe): 0 Source: Developed by Drs. Abdon Gallo, Radha Tabares, Chad Osei and colleagues, with an educational joanna from [employer]. Review of Systems Const Denies chills, Denies headache(s) and Denies weight loss ENT Denies headache(s) Card Denies chest pain, Denies syncope, Denies irregular heart rhythm and Denies dyspnea Resp Denies dyspnea GI Denies abdominal pain, Denies change in stool character, Denies nausea and Denies vomiting Musc Denies deformity and Denies joint swelling Neuro Denies syncope and Denies headache(s) Physical exam (Primary Care) Vital Signs: Last Vital Signs Pulse 82 04/07/23 14:00 BP 132/74 04/07/23 14:00 Pulse Ox 98 04/07/23 14:00 Oxygen Delivery Method Room Air 04/07/23 14:00 BMI result Body Mass Index 26.1 Tobacco/Smoking Status: Tobacco use Status Tobacco use date assessed 04/07/23 04/07/23 14:08 Patient Tobacco Use Status Former Tobacco user 04/07/23 14:08 Tobacco use type Cigarette 04/07/23 14:08 e-Cigarette/Vaping Use Never Used 04/07/23 14:08 PHQ-9: PHQ-9 Score PHQ-9: Total score 7 04/07/23 14:08 Depression Screening Interpretation: Positive Depression Screening Follow-up: Existing condition and Declines treatment Thrive Assessment: Date of Thrive Assessment Date Thrive assessed 04/07/23 04/07/23 14:08 Const General: cooperative, comfortable, no acute distress and alert Neck Neck: Yes no lymphadenopathy Thyroid: Thyroid normal Resp Effort & Inspection: normal respiratory effort Auscultation: clear to auscultation bilaterally Percussion: percussion normal Cardio Jugular venous distension: no JVD Palpation: normal PMI Rate: regular rate Rhythm: regular rhythm Heart sounds: S1 normal heart sound present and S2 normal heart sound present GI Inspection: Yes normal to inspection Palpation (GI): No hepatosplenomegaly present Skin General skin exam: no rashes or lesions noted Extrem General: Yes no clubbing, cyanosis or edema Assessment and Plan Assessment & Plan (1) Cough: Code(s): R05.9 - Cough, unspecified Plan: rx Plan rx Medications: New azithromycin take 500 mg today (day 1), then 250 mg for 4 days (days 2-5) PO 6 tabs 0RF benzonatate 100 mg PO TID PRN 60 caps 0RF cough Refilled triamcinolone acetonide 0.5% 1 appl topical Q OTHER DAY PRN 15 grams 3RF Rash Coding Level of Care Code Est Pt Level 3 (65946) Diagnoses Cough R05.9
== END 2023-04-07 14:14 | disposition home or self-care (01) ==
PROVIDERS: PCP Internal Medicine; Visit Provider Internal Medicine
DX: R05.9 Cough, unspecified (principal)
CPT/HCPCS: 99213

== ENCOUNTER 2023-05-19 11:22 | Outpatient (REF) | payer OTHER, SELFPAY ==
[2023-05-19 11:50] LABS: MANUAL DIFF FLAG NO
[2023-05-19 12:25] LABS: Basophils Percent Auto 0.8 % (0-2); Eosinophils Absolute Auto 0.1 X10*3/uL (0.0-0.4); Eosinophils Percent Auto 1.7 % (0-4); Hematocrit 42.3 % (37.0-47.0); Hemoglobin 13.2 g/dl (12.0-16.0); Imm Gran Abs Auto 0.02 X10*3/uL (0.00-0.03); Imm Gran Pct Auto 0.4 % (0.0-0.4); Lymphocytes Absolute Auto 1.6 X10*3/uL (1.2-4.9); Mean Corpuscular HGB Conc 31.2 g/dl (31.0-35.0); Mean Corpuscular Hemoglobin 25.6 pg (27.0-33.0); Mean Corpuscular Volume 82.1 fL (80.0-98.0); Mean Platelet Volume 9.7 fL (9.4-12.3); Monocytes Absolute Auto 0.4 X10*3/uL (0.1-1.2); Monocytes Percent Auto 7.6 % (2-11); Neutrophils Absolute Auto 2.7 x10*3/uL (2.0-8.3); Neutrophils Percent Auto 56.5 % (45-73); Platelet Count 270 X10*3/uL (160-400); Red Blood Count 5.15 X10*6/uL (4.20-5.50); Red Cell Distribution Width 15.8 % (11.0-16.0); White Blood Count 4.7 X10*3/uL (4.8-10.8)
[2023-05-19 12:44] LABS: Alanine Aminotransferase 13 U/L (0-31); Alkaline Phosphatase 129 U/L (39-117); Anion Gap 11 (12-20); Aspartate Amino Transferase 20 U/L (5-31); Bilirubin Total 0.6 mg/dL (0.0-1.0); Blood Urea Nitrogen 6 mg/dL (9-16); C Reactive Protein 0.17 mg/dL (< or = 0.50); Calcium 9.4 mg/dL (8.4-10.2); Carbon Dioxide 28 mmol/L (22-29); Chloride 107 mmol/L (96-108); Estimated Glomerular Filt Rate > 60; Glucose Random 128 mg/dL (60-115); Potassium 3.7 mmol/L (3.3-5.1); Sodium 142 mmol/L (135-145); Total Protein 7.2 g/dL (6.5-8.0)
[2023-05-19 13:14] LABS: Erythrocyte Sedimentation Rate 6 MM/HR (0-20)
== END 2023-05-19 11:23 | disposition home or self-care (01) ==
LOC: HO.LAB 11:22
PROVIDERS: PCP Internal Medicine; Visit Provider Student in an Organized Health Care Education/Training Program
DX: M81.0 Age-related osteoporosis without current pathological fracture (principal); Z79.899 Other long term (current) drug therapy
CPT/HCPCS: 36415; 80053; 85025; 85652; 86140

== ENCOUNTER 2023-05-24 15:05 | Outpatient (AMB) | payer OTHER, SELFPAY ==
--- NOTE | 2023-05-24 15:29 | A.OFFVIS_ITS ---
Intake Vital Signs 05/24/23 15:30 Height 5 ft 4 in Weight 154 lb 5.177 oz BMI 26.5 BP 126/68 Blood Pressure Location Rt brachial Position Sitting Pulse 66 Pulse Source Pulse Oximeter Pulse Oximetry (%) 98 Oxygen Delivery Method Room Air Intake Visit Reasons: RA Intake Note: Patient last seen 02/03/23 presents today for follow up and test results. Reports back pain after shoveling in March, but resolved on its own. Would like to discuss osteoporosis treatment; has questions about reclast vs. alendronate. Weight Count Operator Required: No Accompanied by: Self / Same As Patient Allergies No Known Allergies [No Known Allergies*] Allergy (Verified 05/24/23 15:33) Medication List - Last Reconciled 05/24/23 by Gloria Simpson MD acetaminophen ER (Tylenol 8 Hour) 1,300 mg PO Q12H PRN ascorbic acid (vitamin C) 1 g (2 x 500 mg) PO DAILY cholecalciferol (vitamin D3) (Vitamin D3) 50 mcg PO DAILY folic acid 1 mg PO DAILY hydroxychloroquine One tab twice daily 5 days a week and 1 tab daily 2 days a week methotrexate sodium 10 mg (4 x 2.5 mg) PO QWEEK omeprazole 20 mg PO BID triamcinolone acetonide 0.5% 1 appl topical Q OTHER DAY PRN vitamin A palmitate 10,000 units PO DAILY 30 days HPI HPI Comments History of Present Illness Details This is a 68-year-old female with seropositive RA who returns for follow-up. She is on methotrexate 10 mg weekly. Also on hydroxychloroquine. She states that since hydroxychloroquine was added she is having less stiffness of her hands. She continues to have intermittent ankle pain especially with going up and down the stairs Bilateral ankle morning stiffness that resolves in about 1 hour. No swollen joints. She had back pain when she had 2 shovels no few weeks ago it resolved on its own. She would like to discuss osteoporosis treatments. She states that all her teeth on her upper jaw have been extracted and she has denture. She states that she is having loosening of her bottom teeth and she will be going to a dentist soon. She is worried about Reclast and risk of ONJ [facility] Medical History Pelvic prolapse Anxiety Anxiety Acid reflux Osteoporosis Tailor's bunionette, left Polyarthritis GERD (gastroesophageal reflux disease) Iron deficiency Seropositive rheumatoid arthritis Surgical History History of esophagogastroduodenoscopy (EGD) Hx of tooth extraction History of colonoscopy H/O cystoscopy H/O hemorrhoidectomy Family History Mother CVD (cardiovascular disease) Father No problems noted. Social History Household Members: Family Household Members Other:: Grandson Housing: Apartment Alcohol intake: never Patient Tobacco Use Status: Former Tobacco user Tobacco use type: Cigarette Cigarettes Per Day: 7 Years Smoked: many e-Cigarette/Vaping Use: Never Used Second Hand Smoke Exposure: No service: No Current occupational status: employed Current occupation: [employer] Cognitive needs: No Hearing needs: No Vision needs: Yes Review of Systems Musc Reports arthralgias and Reports stiffness Physical Exam Vital Signs: Last Vital Signs Pulse 66 05/24/23 15:30 BP 126/68 05/24/23 15:30 Pulse Ox 98 05/24/23 15:30 Oxygen Delivery Method Room Air 05/24/23 15:30 BMI result Body Mass Index 26.5 Const General: cooperative, healthy appearing and comfortable Nutritional Appearance: average body habitus Orientation/consciousness: patient oriented x3 Limitations: no limitations HEENT Head: Yes normocephalic and Yes atraumatic Mouth: moist mucous membranes Resp Effort & Inspection: normal respiratory effort and able to speak in complete sentences Cardio Rate: regular rate Rhythm: regular rhythm Neuro General: patient oriented x3 Extrem Other: No active synovitis today No knee pain bilaterally with full flexion Negative straight leg raise test bilaterally No tenderness upon palpation of her thoracic and lumbar spine Results Reviewed Results Reviewed: Laboratory Tests 07/16/22 07/16/22 07/16/22 15:14 15:14 15:14 1 Date of Service: 05/21/22 Procedure(s): XR DEXA axial skeleton Accession Number(s): [id number] EXAMINATION: BONE DENSITOMETRY CLINICAL INDICATION: Osteoporosis. COMPARISON: Previous BD dated 05/19/2020 and baseline BD dated 08/09/2003. TECHNIQUE: Using a Roller DXA System (software version: 13.1) manufactured by [employer], dual-energy x-ray absorptiometry was performed of the lumbar spine and left hip. The images are of good technical quality. Summary results are attached. FINDINGS: AP SPINE L2-L3 (excluding L1 and L4): The data of L1-L4 has been changed to exclude the L1 and L4 vertebral bodies, because mild degenerative changes at these levels may cause overestimation of lumbar spine density. Current: BMD 0.745 g/cm2, Z-score -2.1, T-score -3.8, osteoporosis, 8.4% decrease from previous, 30.2% decrease from baseline (<5% change is not significant). Prior: BMD 0.813 g/cm2. Baseline: BMD 1.068 g/cm2. LEFT FEMUR, NECK: Current: BMD 0.630 g/cm2, Z-score -1.3, T-score -2.9, osteoporosis. Prior: BMD 0.762 g/cm2. Baseline: BMD 0.803 g/cm2. LEFT FEMUR, TOTAL: Current: BMD 0.652 g/cm2, Z-score -1.4, T-score -2.8, osteoporosis, 16.3% decrease from previous, 20.1% decrease from baseline (<5% change is not significant). Prior: BMD 0.779 g/cm2. Baseline: BMD 0.816 g/cm2. IDENTIFIED RISK FACTORS: Menopause, height loss, osteoporosis, rheumatoid arthritis. HISTORY OF FRACTURE: None listed. MEDICATIONS: Calcium, vitamin D. MM/XR DEXA axial skeleton IMPRESSION: 1. DIAGNOSIS: Osteoporosis based on the lowest T-score value of -3.8 in the lumbar spine applying World Health Organization criteria.? Ordering Physician: Serena Parish NP Date of Service: 04/30/22 Procedure(s): XR TMJ BI Accession Number(s): [id number] EXAMINATION: XR ANKLE, BILATERAL XR TM JOINT, BILATERAL CLINICAL INFORMATION: Pain.? COMPARISON: None? TECHNIQUE: 3 views each ankle and 5 views bilateral TM joints.? FINDINGS: RIGHT ANKLE: There is no visible acute fracture, dislocation or subluxation seen. The ankle mortise and subtalar joints are normal. The soft tissues are normal. LEFT ANKLE: The ankle mortise and subtalar joints are normal. No visible acute fracture, dislocation or subluxation seen. The soft tissues are normal. BILATERAL TM JOINTS: There is normal symmetry of bilateral TM joints on AP view. On open and closed-mouth projection there is normal translation of bilateral condyles without any bony erosive changes. XR/XR TMJ BI IMPRESSION: Unremarkable bilateral ankle exam. ? Unremarkable bilateral TM joints.? Assessment & Plan Assessment & Plan (1) Seropositive rheumatoid arthritis: Comment: ++RF+++CCP dx 07/2018 MTX 2019 on 10 mg chronically, side effects with higher doses HCQ added 10/2022 with improvement Code(s): M05.9 - Rheumatoid arthritis with rheumatoid factor, unspecified Plan: This is a 68-year-old female with seropositive RA who returns for follow-up. On methotrexate 10 mg weekly, hydroxychloroquine 400 mg 4 days a week and 200 mg 3 days a week. Doing quite well with no swollen or tender joints. Inflammatory markers are normal. 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 Need to start antiresorptive therapy. Prolia was denied by insurance. The plan was to go for Reclast, patient was worried about side effects. Especially on ONJ. Discussed with patient that risk of Reclast preventing a fracture is likely much higher than its risk of causing ONJ. Advised patient to follow-up with her dentist and we will re-evaluate afterwards. (4) Long-term use of hydroxychloroquine: Code(s): Z79.899 - Other intermediate accountant (current) drug therapy Plan: Discussed risks of retinopathy associated with hydroxychloroquine. Patient was evaluated by Dr. Figueroa 10/2022. Follow-up yearly with Ophthalmology Plan I spent 45 minutes reviewing patient's chart, evaluating patient, ordering diagnostic workup, counseling patient and documenting in the chart Orders: Orders Complete Blood Count Auto Diff 3 Months M05.9 - Rheumatoid arthritis with rheumatoid factor, unspecified, Z79.899 - Other prison (current) drug therapy Erythrocyte Sedimentation Rate 3 Months M05.9 - Rheumatoid arthritis with rheumatoid factor, unspecified, Z79.899 - Other intermediate accountant (current) drug therapy Comprehensive Met. Panel 3 Months M05.9 - Rheumatoid arthritis with rheumatoid factor, unspecified, Z79.899 - Other intermediate accountant (current) drug therapy C Reactive Protein 3 Months M05.9 - Rheumatoid arthritis with rheumatoid factor, unspecified, Z79.899 - Other prison (current) drug therapy Vitamin D 25-OH (D2 and D3) 3 Months E55.9 - Vitamin D deficiency, unspecified Coding Level of Care Code Est Pt Level 5 (65528) Diagnoses Seropositive rheumatoid arthritis M05.9 assisted methotrexate user Z79.899 Age-related osteoporosis without current pathological fracture M81.0 Osteoporosis type: age-related Presence of current pathological fracture: without current pathological fracture Long-term use of hydroxychloroquine Z79.899
[2023-05-24 15:30] VITALS: BP 126/68; PULSE 66; O2SAT 98; BMI 26.5
== END 2023-05-24 15:58 | disposition home or self-care (01) ==
PROVIDERS: PCP Internal Medicine; Visit Provider Student in an Organized Health Care Education/Training Program
DX: M05.9 Rheumatoid arthritis with rheumatoid factor, unspecified (principal); Z79.899 Other long term (current) drug therapy; M81.0 Age-related osteoporosis without current pathological fracture
CPT/HCPCS: 99215

== ENCOUNTER → 2023-05-24 15:05 | Outpatient (BNVA) | payer OTHER, SELFPAY | PROVIDERS: PCP Internal Medicine; Visit Provider Student in an Organized Health Care Education/Training Program ==

== ENCOUNTER 2023-06-28 10:18 | Outpatient (REF) | payer OTHER, SELFPAY | END 2023-06-28 10:19 | disposition home or self-care (01) | LOC: HO.MAMMO 10:18 | PROVIDERS: PCP Internal Medicine; Visit Provider Internal Medicine | DX: Z12.31 Encounter for screening mammogram for malignant neoplasm of breast (principal) | CPT/HCPCS: 77063; 77067 ==

== ENCOUNTER → 2023-06-28 10:30 | Outpatient (BNV) | payer OTHER, SELFPAY | PROVIDERS: PCP Internal Medicine; Visit Provider Radiology Diagnostic Radiology | DX: Z12.31 Encounter for screening mammogram for malignant neoplasm of breast (principal) | CPT/HCPCS: 77063; 77067 ==

== ENCOUNTER 2023-08-11 09:51 | Outpatient (REF) | payer OTHER, SELFPAY ==
[2023-08-11 10:03] LABS: MANUAL DIFF FLAG NO
[2023-08-11 10:33] LABS: Basophils Absolute Auto 0.1 X10*3/uL (0.0-0.2); Basophils Percent Auto 0.9 % (0-2); Eosinophils Absolute Auto 0.1 X10*3/uL (0.0-0.4); Hematocrit 40.6 % (37.0-47.0); Imm Gran Abs Auto 0.01 X10*3/uL (0.00-0.03); Imm Gran Pct Auto 0.2 % (0.0-0.4); Lymphocytes Absolute Auto 1.2 X10*3/uL (1.2-4.9); Mean Corpuscular Hemoglobin 26.3 pg (27.0-33.0); Mean Corpuscular Volume 82.2 fL (80.0-98.0); Mean Platelet Volume 9.9 fL (9.4-12.3); Monocytes Absolute Auto 0.5 X10*3/uL (0.1-1.2); Monocytes Percent Auto 8.4 % (2-11); Neutrophils Absolute Auto 3.7 x10*3/uL (2.0-8.3); Neutrophils Percent Auto 66.5 % (45-73); Platelet Count 252 X10*3/uL (160-400); Red Blood Count 4.94 X10*6/uL (4.20-5.50); Red Cell Distribution Width 15.2 % (11.0-16.0); White Blood Count 5.6 X10*3/uL (4.8-10.8)
[2023-08-11 11:13] LABS: Alanine Aminotransferase 10 U/L (0-31); Albumin Level 4.1 g/dL (3.5-5.0); Alkaline Phosphatase 117 U/L (39-117); Anion Gap 10 (12-20); Aspartate Amino Transferase 15 U/L (5-31); Bilirubin Total 0.7 mg/dL (0.0-1.0); Blood Urea Nitrogen 7 mg/dL (9-16); C Reactive Protein 0.62 mg/dL (< or = 0.50); Calcium 9.3 mg/dL (8.4-10.2); Carbon Dioxide 29 mmol/L (22-29); Chloride 106 mmol/L (96-108); Estimated Glomerular Filt Rate > 60; Glucose Random 100 mg/dL (60-115); Potassium 3.4 mmol/L (3.3-5.1); Sodium 142 mmol/L (135-145); Total Protein 7.1 g/dL (6.5-8.0)
[2023-08-11 11:41] LABS: Erythrocyte Sedimentation Rate 8 MM/HR (0-20)
[2023-08-16 12:14] LABS: Vitamin D 25-OH, D2 <4 ng/mL; Vitamin D 25-OH, D3 17 ng/mL; Vitamin D 25-OH, Total 17 ng/mL (30-100)
== END 2023-08-11 09:52 | disposition home or self-care (01) ==
LOC: HO.LAB 09:51
PROVIDERS: PCP Internal Medicine; Visit Provider Student in an Organized Health Care Education/Training Program
DX: M05.9 Rheumatoid arthritis with rheumatoid factor, unspecified (principal); Z79.899 Other long term (current) drug therapy; E55.9 Vitamin D deficiency, unspecified
CPT/HCPCS: 36415; 80053; 82306; 85025; 85652; 86140

== ENCOUNTER 2023-08-17 09:19 | Outpatient (AMB) | payer OTHER, SELFPAY ==
--- NOTE | 2023-08-17 09:20 | A.OFFVIS_ITS ---
Vital Signs 08/17/23 09:24 Height 5 ft 4 in Weight 153 lb 7.068 oz BMI 26.3 BP 144/60 H Blood Pressure Location Rt brachial Position Sitting Pulse 88 Pulse Oximetry (%) 97 Intake Visit Reasons: RA Intake Note: Patient last seen 05/24/23 presents today for follow up and test results. Allergies No Known Allergies [No Known Allergies*] Allergy (Verified 08/17/23 09:25) Medication List - Last Reconciled 08/17/23 by Gloria Simpson MD acetaminophen ER (Tylenol 8 Hour) 1,300 mg PO Q12H PRN ascorbic acid (vitamin C) 1 g (2 x 500 mg) PO DAILY cholecalciferol (vitamin D3) (Vitamin D3) 50 mcg PO DAILY folic acid 1 mg PO DAILY hydroxychloroquine One tab twice daily 5 days a week and 1 tab daily 2 days a week methotrexate sodium 10 mg (4 x 2.5 mg) PO QWEEK omeprazole 20 mg PO BID triamcinolone acetonide 0.5% 1 appl topical Q OTHER DAY PRN vitamin A palmitate 10,000 units PO DAILY 30 days HPI Comments Details: This is a 68-year-old female with seropositive RA who returns for follow-up. She is on methotrexate 10 mg weekly. Also on hydroxychloroquine. She continues to have morning stiffness of her hands lasting 30 minutes. Bilateral ankle pain and stiffness and pain with going up and down the stairs. She has not noticed any significant joint swelling. She states that all her teeth on her upper jaw have been extracted and she has denture. She states that she is having loosening of her bottom teeth and she will be going to a dentist soon. She is worried about Reclast and risk of ONJ PFSH Medical History Pelvic prolapse Anxiety Anxiety Acid reflux Osteoporosis Tailor's bunionette, left Polyarthritis GERD (gastroesophageal reflux disease) Iron deficiency Seropositive rheumatoid arthritis Surgical History History of esophagogastroduodenoscopy (EGD) Hx of tooth extraction History of colonoscopy H/O cystoscopy H/O hemorrhoidectomy Family History Mother CVD (cardiovascular disease) Father No problems noted. Social History Household Members: Family Household Members Other:: Grandson Housing: Apartment Alcohol intake: never Patient Tobacco Use Status: Former Tobacco user Tobacco use type: Cigarette Cigarettes Per Day: 7 Years Smoked: many e-Cigarette/Vaping Use: Never Used Second Hand Smoke Exposure: No service: No Current occupational status: employed Current occupation: [employer] Cognitive needs: No Hearing needs: No Vision needs: Yes Review of Systems Musc Reports arthralgias and Reports stiffness Physical Exam Vital Signs: Last Vital Signs Pulse 88 08/17/23 09:24 BP 144/60 H 08/17/23 09:24 Pulse Ox 97 08/17/23 09:24 BMI result Body Mass Index 26.3 Const General: cooperative, healthy appearing and comfortable Nutritional Appearance: average body habitus Orientation/consciousness: patient oriented x3 Limitations: no limitations HEENT Head: Yes normocephalic and Yes atraumatic Mouth: moist mucous membranes Resp Effort & Inspection: normal respiratory effort and able to speak in complete sentences Cardio Rate: regular rate Rhythm: regular rhythm Neuro General: patient oriented x3 Extrem Other: Mild osteoarthritic changes of right hand. Reduced right hand superintendent system operation strength Left 2nd MCP swelling No ankle tenderness bilaterally No knee pain bilaterally with full flexion Negative straight leg raise test bilaterally No tenderness upon palpation of her thoracic and lumbar spine Results Reviewed Results Reviewed: Laboratory Tests 07/16/22 07/16/22 07/16/22 15:14 15:14 15:14 1 Date of Service: 05/21/22 Procedure(s): XR DEXA axial skeleton Accession Number(s): [id number] EXAMINATION: BONE DENSITOMETRY CLINICAL INDICATION: Osteoporosis. COMPARISON: Previous BD dated 05/19/2020 and baseline BD dated 08/09/2003. TECHNIQUE: Using a [employer] DXA System (software version: 13.1) manufactured by [employer], dual-energy x-ray absorptiometry was performed of the lumbar spine and left hip. The images are of good technical quality. Summary results are attached. FINDINGS: AP SPINE L2-L3 (excluding L1 and L4): The data of L1-L4 has been changed to exclude the L1 and L4 vertebral bodies, because mild degenerative changes at these levels may cause overestimation of lumbar spine density. Current: BMD 0.745 g/cm2, Z-score -2.1, T-score -3.8, osteoporosis, 8.4% decrease from previous, 30.2% decrease from baseline (<5% change is not significant). Prior: BMD 0.813 g/cm2. Baseline: BMD 1.068 g/cm2. LEFT FEMUR, NECK: Current: BMD 0.630 g/cm2, Z-score -1.3, T-score -2.9, osteoporosis. Prior: BMD 0.762 g/cm2. Baseline: BMD 0.803 g/cm2. LEFT FEMUR, TOTAL: Current: BMD 0.652 g/cm2, Z-score -1.4, T-score -2.8, osteoporosis, 16.3% decrease from previous, 20.1% decrease from baseline (<5% change is not significant). Prior: BMD 0.779 g/cm2. Baseline: BMD 0.816 g/cm2. IDENTIFIED RISK FACTORS: Menopause, height loss, osteoporosis, rheumatoid arthritis. HISTORY OF FRACTURE: None listed. MEDICATIONS: Calcium, vitamin D. MM/XR DEXA axial skeleton IMPRESSION: 1. DIAGNOSIS: Osteoporosis based on the lowest T-score value of -3.8 in the lumbar spine applying World Health Organization criteria.? Ordering Physician: Serena Parish NP Date of Service: 04/30/22 Procedure(s): XR TMJ BI Accession Number(s): [id number] EXAMINATION: XR ANKLE, BILATERAL XR TM JOINT, BILATERAL CLINICAL INFORMATION: Pain.? COMPARISON: None? TECHNIQUE: 3 views each ankle and 5 views bilateral TM joints.? FINDINGS: RIGHT ANKLE: There is no visible acute fracture, dislocation or subluxation seen. The ankle mortise and subtalar joints are normal. The soft tissues are normal. LEFT ANKLE: The ankle mortise and subtalar joints are normal. No visible acute fracture, dislocation or subluxation seen. The soft tissues are normal. BILATERAL TM JOINTS: There is normal symmetry of bilateral TM joints on AP view. On open and closed-mouth projection there is normal translation of bilateral condyles without any bony erosive changes. XR/XR TMJ BI IMPRESSION: Unremarkable bilateral ankle exam. ? Unremarkable bilateral TM joints.? Assessment & Plan Assessment & Plan (1) Seropositive rheumatoid arthritis: Comment: ++RF+++CCP dx 07/2018 MTX 2019 on 10 mg chronically, side effects with higher doses HCQ added 10/2022 with improvement Code(s): M05.9 - Rheumatoid arthritis with rheumatoid factor, unspecified Category: Medical Plan: This is a 68-year-old female with seropositive RA who returns for follow-up. On methotrexate 10 mg weekly, hydroxychloroquine 400 mg 4 days a week and 200 mg 3 days a week. Patient continues to have morning stiffness. Continues to have pain in her hands and ankles. On exam she has reduced right hand superintendent system operation strength Left hand MCP swelling. Will need to add DMARDs. Discussed risks and benefits of Enbrel. I provided patient with a printout of patient information about Enbrel. Advised patient to call the clinic if she would like to start it. 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: Code(s): Z79.899 - Other ad terminal makeup operator (current) drug therapy Category: Medical Plan: Monitor safety labs (3) Osteoporosis: Comment: T-score of-3.0 DEXA 04/2022: osteoporosis, T-score-3.8 in the lumbar spine-03/2022 Code(s): M81.0 - Age-related osteoporosis without current pathological fracture Category: Medical Qualifiers: Osteoporosis type: age-related Presence of current pathological fracture: without current pathological fracture Qualified Code(s): M81.0 - Age- related osteoporosis without current pathological fracture Plan: Discussed with patient, she has severe osteoporosis. Need to start antiresorptive therapy. Prolia was denied by insurance. The plan was to go for Reclast, patient was worried about side effects. Especially on ONJ. Discussed with patient that risk of Reclast preventing a fracture is likely much higher than its risk of causing ONJ. Advised patient to follow-up with her dentist and we will re-evaluate afterwards. Vitamin-D level 17. Patient states that she vitamin-D but is not sure of the dose. Advised patient to take 3 times her usual dose and we will recheck at next visit (4) Long-term use of hydroxychloroquine: Code(s): Z79.899 - Other custodial (current) drug therapy Category: Medical Plan: Discussed risks of retinopathy associated with hydroxychloroquine. Patient was evaluated by Dr. Figueroa 10/2022. Follow-up yearly with Ophthalmology Plan I spent 45 minutes reviewing patient's chart, evaluating patient, ordering diagnostic workup, counseling patient and documenting in the chart Orders: Orders Complete Blood Count Auto Diff 3 Months M05.9 - Rheumatoid arthritis with rheumatoid factor, unspecified, Z79.899 - Other ad terminal makeup operator (current) drug therapy Comprehensive Met. Panel 3 Months M05.9 - Rheumatoid arthritis with rheumatoid factor, unspecified, Z79.899 - Other ad terminal makeup operator (current) drug therapy C Reactive Protein 3 Months M05.9 - Rheumatoid arthritis with rheumatoid factor, unspecified, Z79.899 - Other custodial (current) drug therapy Erythrocyte Sedimentation Rate 3 Months M05.9 - Rheumatoid arthritis with rheumatoid factor, unspecified, Z79.899 - Other custodial (current) drug therapy Vitamin D 25-OH (D2 and D3) 3 Months E55.9 - Vitamin D deficiency, unspecified Coding Level of Care Code Est Pt Level 4 (88345) Complex EM visit Add On G2211 Diagnoses Seropositive rheumatoid arthritis M05.9 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
[2023-08-17 09:24] VITALS: BP 144/60; PULSE 88; O2SAT 97; BMI 26.3
== END 2023-08-17 09:44 | disposition home or self-care (01) ==
PROVIDERS: PCP Internal Medicine; Visit Provider Student in an Organized Health Care Education/Training Program
DX: M05.79 Rheumatoid arthritis with rheumatoid factor of multiple sites without organ or systems involvement (principal); Z79.899 Other long term (current) drug therapy; M81.0 Age-related osteoporosis without current pathological fracture
CPT/HCPCS: 99214; G2211

== ENCOUNTER → 2023-08-17 09:19 | Outpatient (BNVA) | payer OTHER, SELFPAY | PROVIDERS: PCP Internal Medicine; Visit Provider Student in an Organized Health Care Education/Training Program ==

== ENCOUNTER 2023-12-06 13:36 | Outpatient (AMB) | payer BC, SELFPAY ==
[2023-12-06 13:43] VITALS: BP 138/70; PULSE 78; O2SAT 98; BMI 26.8
--- NOTE | 2023-12-06 13:43 | A.OFFPC_ITS ---
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: No Accompanied by: Self / Same As Patient Allergies No Known Allergies [No Known Allergies*] Allergy (Verified 12/06/23 13:43) Medication List - Last Reconciled 12/07/23 by Zuhair Valencia MD acetaminophen ER (Tylenol 8 Hour) 1,300 mg PO Q12H PRN ascorbic acid (vitamin C) 1 g (2 x 500 mg) PO DAILY cholecalciferol (vitamin D3) (Vitamin D3) 50 mcg PO DAILY folic acid 1 mg PO DAILY hydroxychloroquine One tab twice daily 5 days a week and 1 tab daily 2 days a week methotrexate sodium 10 mg (4 x 2.5 mg) PO QWEEK omeprazole 20 mg PO BID triamcinolone acetonide 0.5% 1 appl topical Q OTHER DAY PRN vitamin A palmitate 10,000 units PO DAILY 30 days Tobacco use date assessed: 04/07/23 Fall risk assessment: 1 Fall in past year (Hurt her knee - July 2023) Last assessed Fall Risk: 12/06/23 Dental Screening Dental Screen Date: 04/07/23 HPI Annual Exam HPI Details has RA and sees rheumatology; doing well and compliant [facility] Medical History Pelvic prolapse Anxiety Anxiety Acid reflux Osteoporosis Tailor's bunionette, left Polyarthritis GERD (gastroesophageal reflux disease) Iron deficiency Seropositive rheumatoid arthritis Surgical History History of esophagogastroduodenoscopy (EGD) Hx of tooth extraction History of colonoscopy H/O cystoscopy H/O hemorrhoidectomy Family History Mother CVD (cardiovascular disease) Father No problems noted. Social History Household Members: Family Household Members Other:: Grandson Housing: Apartment Alcohol intake: never Patient Tobacco Use Status: Former Tobacco user Tobacco use type: Cigarette Cigarettes Per Day: 7 Years Smoked: many e-Cigarette/Vaping Use: Never Used Second Hand Smoke Exposure: No service: No Current occupational status: employed Current occupation: [employer] Cognitive needs: No Hearing needs: No Vision needs: Yes Questionnaire PHQ-9 Over the last 2 weeks, how often have you been bothered by any of the following problems? 1. Little interest or pleasure in doing things: several days 2. Feeling down, depressed, or hopeless: several days 3. Trouble falling or staying asleep, or sleeping too much: several days 4. Feeling tired or having little energy: several days 5. Poor appetite or overeating: several days 6. Feeling bad about yourself - or that you are a failure or have let yourself or your family down: not at all 7. Trouble concentrating on things, such as reading the newspaper or watching television: several days 8. Moving or speaking so slowly that other people could have noticed. Or the opposite - being so fidgety or restless that you have been moving around a lot more than usual: not at all 9. Thoughts that you would be better off or of hurting yourself in some way: not at all Total score: 6 Source: Developed by Drs. Abdon Gallo, Radha Tabares, Chad Osei and colleagues, with an educational joanna from [email or web address]. Thrive Questionnaire Date Thrive assessed: 04/07/23 I am a: Patient What is your living situation today?: I have a steady place to live Within the past 12 months, did the food you bought not last and you didn't have the money to get more?: Never true Within the past 12 months, did you worry whether your food would run out before you got money to buy more?: Never true Do you have trouble paying for medicines?: No Do you have trouble getting transportation to medical appointments?: No Do you have trouble paying your heating and electricity bill?: No Do you have trouble taking care of your child, family member or friend?: No Do you have trouble with day-to-day activities such as bathing, preparing meals, shopping, managing finances, etc.?: No Are you currently unemployed and looking for a job?: Yes Are you interested in more education?: No Please select the resources that you would like help with: None Currently or been in a relationship where the following occur: I choose not to answer THRIVE Score: 0 AUDIT C Alcohol Use Questionnaire (AUDIT-C) 1. How often do you have a drink containing alcohol?: Never Total Score: 0 CB-7 AMB Questionnaire CB-7 Date CB - 7 assessed: 04/07/23 Feeling nervous, anxious, or on edge: 1 = Several days Not being able to stop or control worryin = Several days Worrying too much about different things: 1 = Several days Trouble relaxin = Several days Being so restless that it is hard to sit still: 1 = Several days Becoming easily annoyed or irritable: 1 = Several days Feeling afraid as if something awful might happen: 1 = Several days Total CB-7 score (0-4 normal; 5-9 mild; 10-14 moderate; 15-21 severe): 7 Source: Developed by Drs. Abdon Gallo, Radha Tabares, Chad Osei and colleagues, with an educational joanna from [email or web address]. Review of Systems Const Denies chills, Denies fatigue, Denies headache(s) and Denies weight loss Eyes Denies change in vision, Denies diplopia and Denies eye pain ENT Denies vertigo, Denies dizziness, Denies headache(s) and Denies nasal discharge Card Denies chest pain, Denies rapid heart rate and Denies dyspnea on exertion Resp Denies chest congestion, Denies cough, Denies pain with cough and Denies dyspnea on exertion GI Denies abdominal pain, Denies hematochezia and Denies change in bowel habits Musc Denies myalgias, Denies arthralgias and Denies joint swelling Skin/Breast Denies lesions and Denies unusual bruising Neuro Denies vertigo, Denies dizziness, Denies headache(s) and Denies focal weakness Endo Denies fatigue Physical exam (Primary Care) Vital Signs: Last Vital Signs Pulse 78 12/06/23 13:43 BP 138/70 12/06/23 13:43 Pulse Ox 98 12/06/23 13:43 Oxygen Delivery Method Room Air 12/06/23 13:43 BMI result Body Mass Index 26.8 Tobacco/Smoking Status: Tobacco use Status Tobacco use date assessed 04/07/23 12/06/23 13:49 Patient Tobacco Use Status Former Tobacco user 12/06/23 13:49 Tobacco use type Cigarette 12/06/23 13:49 e-Cigarette/Vaping Use Never Used 12/06/23 13:49 PHQ-9: PHQ-9 Score PHQ-9: Total score 6 12/06/23 13:49 Thrive Assessment: Date of Thrive Assessment Date Thrive assessed 04/07/23 12/06/23 13:49 Currently or been in a relationship where the following occur: I choose not to answer Const General: cooperative, healthy appearing and no acute distress Orientation/consciousness: oriented to person, oriented to place and oriented to time HENMT Head: Yes normal to inspection, Yes normocephalic and Yes atraumatic Mouth: Normal oral and palatal mucosa present and tongue normal Throat: Yes posterior oropharynx normal and Yes uvula midline Eyes General: appearance normal, both eyes and all related structures Neck Neck: Yes normal visual inspection, Yes full ROM and Yes no lymphadenopathy Thyroid: Thyroid normal Carotids: normal carotid upstroke Chest Chest palpation & inspection: normal inspection of the chest Resp Effort & Inspection: normal respiratory effort and able to speak in complete sentences Auscultation: clear to auscultation bilaterally Cardio Jugular venous distension: no JVD Palpation: normal PMI Rate: regular rate Rhythm: regular rhythm Heart sounds: S1 normal heart sound present and S2 normal heart sound present GI Inspection: Yes normal to inspection Palpation (GI): Soft to palpation and No hepatosplenomegaly present Auscultation: normal bowel sounds General: Yes no CVA tenderness Back/Spine/Pelvis Back: no CVA tenderness Skin General skin exam: no rashes or lesions noted Neuro General: oriented to person, oriented to place and oriented to time Extrem General: Yes normal to inspection and Yes full ROM Assessment and Plan Assessment & Plan (1) Physical exam: Code(s): Z00.00 - Encounter for general adult medical examination without abnormal findings Plan: stable; (2) Seropositive rheumatoid arthritis: Code(s): M05.9 - Rheumatoid arthritis with rheumatoid factor, unspecified Plan: stable; as per rheumatology Coding Level of Care Code Est Pt Prev Care >65y(66142) Diagnoses Physical exam Z00.00 Seropositive rheumatoid arthritis M05.9
== END 2023-12-06 14:10 | disposition home or self-care (01) ==
PROVIDERS: PCP Internal Medicine; Visit Provider Internal Medicine
DX: Z00.00 Encounter for general adult medical examination without abnormal findings (principal); M05.9 Rheumatoid arthritis with rheumatoid factor, unspecified
CPT/HCPCS: 99397

== ENCOUNTER 2024-01-10 09:17 | Outpatient (REF) | payer BC, SELFPAY ==
[2024-01-10 09:39] LABS: MANUAL DIFF FLAG NO
[2024-01-10 10:53] LABS: Basophils Percent Auto 0.9 % (0-2); Eosinophils Absolute Auto 0.1 X10*3/uL (0.0-0.4); Eosinophils Percent Auto 2.3 % (0-4); Hematocrit 41.6 % (37.0-47.0); Imm Gran Abs Auto 0.02 X10*3/uL (0.00-0.03); Imm Gran Pct Auto 0.5 % (0.0-0.4); Lymphocytes Absolute Auto 1.2 X10*3/uL (1.2-4.9); Lymphocytes Percent Auto 27.1 % (20-40); Mean Corpuscular HGB Conc 31.3 g/dl (31.0-35.0); Mean Corpuscular Hemoglobin 25.6 pg (27.0-33.0); Mean Corpuscular Volume 82.1 fL (80.0-98.0); Mean Platelet Volume 10.3 fL (9.4-12.3); Monocytes Absolute Auto 0.3 X10*3/uL (0.1-1.2); Monocytes Percent Auto 6.1 % (2-11); Neutrophils Absolute Auto 2.8 x10*3/uL (2.0-8.3); Neutrophils Percent Auto 63.1 % (45-73); Platelet Count 247 X10*3/uL (160-400); Red Blood Count 5.07 X10*6/uL (4.20-5.50); Red Cell Distribution Width 15.4 % (11.0-16.0); White Blood Count 4.4 X10*3/uL (4.8-10.8)
[2024-01-10 11:31] LABS: Erythrocyte Sedimentation Rate 7 MM/HR (0-20)
[2024-01-10 11:48] LABS: Alanine Aminotransferase 11 U/L (0-31); Albumin Level 4.1 g/dL (3.5-5.0); Alkaline Phosphatase 109 U/L (39-117); Anion Gap 9 (12-20); Aspartate Amino Transferase 16 U/L (5-31); Bilirubin Total 0.7 mg/dL (0.0-1.0); Blood Urea Nitrogen 7 mg/dL (9-16); C Reactive Protein 0.37 mg/dL (< or = 0.50); Calcium 9.3 mg/dL (8.4-10.2); Carbon Dioxide 28 mmol/L (22-29); Chloride 108 mmol/L (96-108); Estimated Glomerular Filt Rate > 60; Glucose Random 119 mg/dL (60-115); Potassium 3.3 mmol/L (3.3-5.1); Sodium 142 mmol/L (135-145)
[2024-01-14 13:04] LABS: Vitamin D 25-OH, D2 <4 ng/mL; Vitamin D 25-OH, D3 21 ng/mL; Vitamin D 25-OH, Total 21 ng/mL (30-100)
== END 2024-01-10 09:18 | disposition home or self-care (01) ==
LOC: HO.LAB 09:17
PROVIDERS: PCP Internal Medicine; Visit Provider Student in an Organized Health Care Education/Training Program
DX: E55.9 Vitamin D deficiency, unspecified (principal); M05.9 Rheumatoid arthritis with rheumatoid factor, unspecified; Z79.899 Other long term (current) drug therapy
CPT/HCPCS: 36415; 80053; 82306; 85025; 85652; 86140

== ENCOUNTER 2024-01-20 08:56 | Outpatient (AMB) | payer BC, SELFPAY ==
--- NOTE | 2024-01-20 09:03 | A.OFFVIS_ITS ---
Vital Signs 01/20/24 09:07 Height 5 ft 4 in Weight 155 lb 6.814 oz BMI 26.7 BP 124/72 Blood Pressure Location Rt brachial Position Sitting Pulse 77 Pulse Source Pulse Oximeter Pulse Oximetry (%) 98 Oxygen Delivery Method Room Air Intake Visit Reasons: RA/CM Intake Note: Patient presents for RA. Allergies No Known Allergies [No Known Allergies*] Allergy (Verified 01/20/24 09:07) Medication List - Last Reconciled 01/20/24 by Gloria Simpson MD acetaminophen ER (Tylenol 8 Hour) 1,300 mg PO Q12H PRN ascorbic acid (vitamin C) 1 g (2 x 500 mg) PO DAILY cholecalciferol (vitamin D3) 1,250 mcg PO QWEEK 3 months folic acid 1 mg PO DAILY hydroxychloroquine One tab twice daily 5 days a week and 1 tab daily 2 days a week methotrexate sodium 10 mg (4 x 2.5 mg) PO QWEEK omeprazole 20 mg PO BID triamcinolone acetonide 0.5% 1 appl topical Q OTHER DAY PRN vitamin A palmitate 10,000 units PO DAILY 30 days HPI Comments Details: This is a 68-year-old female with seropositive RA who returns for follow-up. Sh pool is on methotrexate and hydroxychloroquine. She states that she gets intermittent joint pains in her hands, right shoulder, both ankles, no significant swelling. [facility] Medical History Pelvic prolapse Anxiety Anxiety Acid reflux Osteoporosis Tailor's bunionette, left Polyarthritis GERD (gastroesophageal reflux disease) Iron deficiency Seropositive rheumatoid arthritis Surgical History History of esophagogastroduodenoscopy (EGD) Hx of tooth extraction History of colonoscopy H/O cystoscopy H/O hemorrhoidectomy Family History Mother CVD (cardiovascular disease) Father No problems noted. Social History Household Members: Family Household Members Other:: Grandson Housing: Apartment Alcohol intake: never Patient Tobacco Use Status: Former Tobacco user Tobacco use type: Cigarette Cigarettes Per Day: 7 Years Smoked: many e-Cigarette/Vaping Use: Never Used Second Hand Smoke Exposure: No service: No Current occupational status: employed Current occupation: [employer] Cognitive needs: No Hearing needs: No Vision needs: Yes Review of Systems Musc Reports arthralgias and Reports joint swelling Physical Exam Vital Signs: Last Vital Signs Pulse 77 01/20/24 09:07 BP 124/72 01/20/24 09:07 Pulse Ox 98 01/20/24 09:07 Oxygen Delivery Method Room Air 01/20/24 09:07 BMI result Body Mass Index 26.7 Const General: cooperative, healthy appearing and comfortable Nutritional Appearance: average body habitus Orientation/consciousness: patient oriented x3 Limitations: no limitations HEENT Head: Yes normocephalic and Yes atraumatic Mouth: moist mucous membranes Resp Effort & Inspection: normal respiratory effort and able to speak in complete sentences Cardio Rate: regular rate Rhythm: regular rhythm Neuro General: patient oriented x3 Extrem Other: Mild osteoarthritic changes of right hand. No active synovitis today No ankle tenderness bilaterally No knee pain bilaterally with full flexion Negative straight leg raise test bilaterally No tenderness upon palpation of her thoracic and lumbar spine Results Reviewed Results Reviewed: Laboratory Tests 07/16/22 07/16/22 07/16/22 15:14 15:14 15:14 1 Date of Service: 05/21/22 Procedure(s): XR DEXA axial skeleton Accession Number(s): [id number] EXAMINATION: BONE DENSITOMETRY CLINICAL INDICATION: Osteoporosis. COMPARISON: Previous BD dated 05/19/2020 and baseline BD dated 08/09/2003. TECHNIQUE: Using a [employer] DXA System (software version: 13.1) manufactured by [employer], dual-energy x-ray absorptiometry was performed of the lumbar spine and left hip. The images are of good technical quality. Summary results are attached. FINDINGS: AP SPINE L2-L3 (excluding L1 and L4): The data of L1-L4 has been changed to exclude the L1 and L4 vertebral bodies, because mild degenerative changes at these levels may cause overestimation of lumbar spine density. Current: BMD 0.745 g/cm2, Z-score -2.1, T-score -3.8, osteoporosis, 8.4% decrease from previous, 30.2% decrease from baseline (<5% change is not significant). Prior: BMD 0.813 g/cm2. Baseline: BMD 1.068 g/cm2. LEFT FEMUR, NECK: Current: BMD 0.630 g/cm2, Z-score -1.3, T-score -2.9, osteoporosis. Prior: BMD 0.762 g/cm2. Baseline: BMD 0.803 g/cm2. LEFT FEMUR, TOTAL: Current: BMD 0.652 g/cm2, Z-score -1.4, T-score -2.8, osteoporosis, 16.3% decrease from previous, 20.1% decrease from baseline (<5% change is not significant). Prior: BMD 0.779 g/cm2. Baseline: BMD 0.816 g/cm2. IDENTIFIED RISK FACTORS: Menopause, height loss, osteoporosis, rheumatoid arthritis. HISTORY OF FRACTURE: None listed. MEDICATIONS: Calcium, vitamin D. MM/XR DEXA axial skeleton IMPRESSION: 1. DIAGNOSIS: Osteoporosis based on the lowest T-score value of -3.8 in the lumbar spine applying World Health Organization criteria.? Ordering Physician: Serena Parish NP Date of Service: 04/30/22 Procedure(s): XR TMJ BI Accession Number(s): [id number] EXAMINATION: XR ANKLE, BILATERAL XR TM JOINT, BILATERAL CLINICAL INFORMATION: Pain.? COMPARISON: None? TECHNIQUE: 3 views each ankle and 5 views bilateral TM joints.? FINDINGS: RIGHT ANKLE: There is no visible acute fracture, dislocation or subluxation seen. The ankle mortise and subtalar joints are normal. The soft tissues are normal. LEFT ANKLE: The ankle mortise and subtalar joints are normal. No visible acute fracture, dislocation or subluxation seen. The soft tissues are normal. BILATERAL TM JOINTS: There is normal symmetry of bilateral TM joints on AP view. On open and closed-mouth projection there is normal translation of bilateral condyles without any bony erosive changes. XR/XR TMJ BI IMPRESSION: Unremarkable bilateral ankle exam. ? Unremarkable bilateral TM joints.? Assessment & Plan Assessment & Plan (1) Seropositive rheumatoid arthritis: Code(s): M05.9 - Rheumatoid arthritis with rheumatoid factor, unspecified Category: Medical Plan: This is a 68-year-old female with seropositive RA who returns for follow-up. On methotrexate 10 mg weekly, hydroxychloroquine 400 mg 4 days a week and 200 mg 3 days a week. Today patient is doing well with no active synovitis. Continue current meds Labs before next visit in 4 months (2) longterm methotrexate user: Code(s): Z79.899 - Other buttermaker (current) drug therapy Category: Medical Plan: Monitor safety labs (3) Osteoporosis: Comment: T-score of-3.0 DEXA 04/2022: osteoporosis, T-score-3.8 in the lumbar spine-03/2022 Code(s): M81.0 - Age-related osteoporosis without current pathological fracture Category: Medical Qualifiers: Osteoporosis type: age-related Presence of current pathological fracture: without current pathological fracture Qualified Code(s): M81.0 - Age- related osteoporosis without current pathological fracture Plan: Discussed with patient, she has severe osteoporosis. Need to start treatment. Prolia was denied by insurance in the past. We discussed Reclast in previous visits, patient was worried about side effects. Especially on ONJ. Discussed with patient that risk of Reclast preventing a fracture is likely much higher than its risk of causing ONJ. Patient has an appointment with her dentist next month. We also discussed avidity. I explained that Evenity is likely the next best step. We discussed the black box warning and the very low risk of association with cardiovascular events. I think in her case however the benefits outweigh the risk. The plan would be to do Evenity for 1 year then consolidate with Reclast or Prolia Vitamin-D level 21. Start vitamin-D supplementation 58131 units weekly. Check vitamin-D level before next visit (4) Long-term use of hydroxychloroquine: Comment: Eye exam 10/2023. Okay Code(s): Z79.899 - Other chcf (current) drug therapy Category: Medical Plan: Discussed risks of retinopathy associated with hydroxychloroquine. Patient was evaluated by Dr. Figueroa 10/2023. Follow-up yearly with Ophthalmology Plan I spent 45 minutes reviewing patient's chart, evaluating patient, ordering diagnostic workup, counseling patient and documenting in the chart Orders: Orders Vitamin D 25-OH (D2 and D3) 4 Months E55.9 - Vitamin D deficiency, unspecified Medications: New cholecalciferol (vitamin D3) 1,250 mcg PO QWEEK 3 months 13 caps 0RF Refilled methotrexate sodium 10 mg (4 x 2.5 mg) PO QWEEK 48 tabs 1RF hydroxychloroquine One tab twice daily 5 days a week and 1 tab daily 2 days a week 144 tabs 1RF Discontinued nirmatrelvir-ritonavir 300 mg (150 mg x 2)-100 mg (Paxlovid) Discontinued Reason: Patient Refused take TWO 150 mg tablets of nirmatrelvir with ONE 100 mg tablet of ritonavir twice daily for 5 days PO 30 tabs 0RF cholecalciferol (vitamin D3) (Vitamin D3) Discontinued Reason: Doctor's Order 50 mcg PO DAILY 30 caps 3RF M81.0 - Age-related osteoporosis without current pathological fracture Coding Level of Care Code Est Pt Level 4 (04025) Complex EM visit Add On G2211 Diagnoses Seropositive rheumatoid arthritis M05.9 buttermaker methotrexate user Z79.899 Age-related osteoporosis without current pathological fracture M81.0 Osteoporosis type: age-related Presence of current pathological fracture: without current pathological fracture Long-term use of hydroxychloroquine Z79.899
[2024-01-20 09:07] VITALS: BP 124/72; PULSE 77; O2SAT 98; BMI 26.7
== END 2024-01-20 09:31 | disposition home or self-care (01) ==
PROVIDERS: PCP Internal Medicine; Visit Provider Student in an Organized Health Care Education/Training Program
DX: M05.79 Rheumatoid arthritis with rheumatoid factor of multiple sites without organ or systems involvement (principal); Z79.899 Other long term (current) drug therapy; M81.0 Age-related osteoporosis without current pathological fracture
CPT/HCPCS: 99215

== ENCOUNTER → 2024-01-20 08:56 | Outpatient (BNVA) | payer BC, SELFPAY | PROVIDERS: PCP Internal Medicine; Visit Provider Student in an Organized Health Care Education/Training Program ==

== ENCOUNTER 2024-01-27 08:50 | Outpatient (AMB) | payer BC, SELFPAY ==
--- NOTE | 2024-01-27 08:55 | MHC.OFFVIS ---
Vital Signs 01/27/24 08:58 Height 5 ft 4 in Weight 154 lb 5.177 oz BMI 26.5 BP 141/54 H Blood Pressure Location Lt brachial Position Sitting Pulse 79 Intake Visit Reasons: 1 year f/u Intake Note: Yaneth presents in the office as a 1 year follow up. CC: She states that she feels okay - acid reflux is controlled with omeprazole and needs refill due to new insurance. [employer] Required: No Allergies No Known Allergies [No Known Allergies*] Allergy (Verified 01/27/24 08:58) HPI HPI 1 year f/u: Details: 68 yr F w hx of? seropositive RA (RF++ CCP++) presents for follow-up RECAP: Being seen for GERD and hx of polyps colonoscopy 06/2020--poor prep, tubular adenomas removed she had v low Vit a and Vit C--sent supplements for her EGD/colo:01/17 Endoscopy Findings: esophagitis hiatal hernia gastritis fundic gland polyps esophageal stricture Colonoscopy Findings: internal hemorrhoids path; focal intestinal metaplasia GEJ INTERIM: she is doing well with PPI she has issues with her arthritis, has osteoporosis she has no epigastric pain no constipation no nausea or vomiting she is taking vit D and Ca EXAM: GENERAL: The patient is well developed and nontoxic. VITAL SIGNS:see workflow HEENT: Nonicteric sclerae, PERRLA, EOMI. Oropharynx clear. Moist mucous membranes. Conjunctivae appear well perfused. No thyroid mass. CHEST: Chest wall is nontender. HEART: Regular rate and rhythm without murmurs. LUNGS: Clear to auscultation bilaterally. ABDOMEN: Soft, positive bowel sounds, nontender, no organomegaly.no flank tenderness SKIN: No rash, no excessive bruising, petechiae, or purpura. NEUROLOGIC: Cranial nerves II-XII intact without motor/sensory deficit. a/P: 1/ Hx of polyps, 2027 2/ nutritional def, on Vit A and D 3/ choking and reflux- not an issue now 4/ Barretts, small area PLAN: 1/ Repeat colonsocopy along with EGD in about 5 yrs, can do earlier if needed 2/ cont with omeprazole, cont with supplements and take daily multi vitamin as doing 3/ check vitamin levels funmi vit A [facility] Medical History Pelvic prolapse Anxiety Anxiety Acid reflux Osteoporosis Tailor's bunionette, left Polyarthritis GERD (gastroesophageal reflux disease) Iron deficiency Seropositive rheumatoid arthritis Surgical History History of esophagogastroduodenoscopy (EGD) Hx of tooth extraction History of colonoscopy H/O cystoscopy H/O hemorrhoidectomy Family History Mother CVD (cardiovascular disease) Father No problems noted. Social History Household Members: Family Household Members Other:: Grandson Housing: Apartment Alcohol intake: never Patient Tobacco Use Status: Former Tobacco user Tobacco use type: Cigarette Cigarettes Per Day: 7 Years Smoked: many e-Cigarette/Vaping Use: Never Used Second Hand Smoke Exposure: No service: No Current occupational status: employed Current occupation: [employer] Cognitive needs: No Hearing needs: No Vision needs: Yes Physical Exam Vital Signs: Last Vital Signs Pulse 79 01/27/24 08:58 BP 141/54 H 01/27/24 08:58 BMI result Body Mass Index 26.5 Assessment & Plan Assessment & Plan (1) Vitamin C deficiency: Code(s): E54 - Ascorbic acid deficiency Category: Medical Plan: see above (2) Vitamin A deficiency: Code(s): E50.9 - Vitamin A deficiency, unspecified Category: Medical Plan: see above Orders: Orders Vitamin B12 and Folate Today E50.9 - Vitamin A deficiency, unspecified, E54 - Ascorbic acid deficiency Vitamin A Today E50.9 - Vitamin A deficiency, unspecified, E54 - Ascorbic acid deficiency Vitamin B1 Today E50.9 - Vitamin A deficiency, unspecified, E54 - Ascorbic acid deficiency Zinc Today E50.9 - Vitamin A deficiency, unspecified, E54 - Ascorbic acid deficiency Medications: Refilled vitamin A palmitate 10,000 units PO DAILY 30 days 30 caps 3RF omeprazole 20 mg PO BID 180 caps 2RF Coding Level of Care Code Est Pt Level 3 (11602) Diagnoses Vitamin C deficiency E54 Vitamin A deficiency E50.9
[2024-01-27 08:58] VITALS: BP 141/54; PULSE 79; BMI 26.5
== END 2024-01-27 09:40 | disposition home or self-care (01) ==
LOC: HO.HGI 08:51
PROVIDERS: PCP Internal Medicine; Visit Provider Internal Medicine Gastroenterology
DX: E54 Ascorbic acid deficiency (principal); E50.9 Vitamin A deficiency, unspecified
CPT/HCPCS: 99213

== ENCOUNTER 2024-01-27 08:50 | Outpatient (REF) | payer BC, SELFPAY ==
[2024-01-27 12:10] LABS: Folate 14.3 ng/mL (> or = 4.0); Vitamin B12 172 pg/mL (200-900)
[2024-01-31 01:09] LABS: Zinc 95 mcg/dL (60-130)
[2024-02-03 13:53] LABS: Vitamin B1 12 nmol/L (8-30)
[2024-02-03 23:09] LABS: Vitamin A 35 mcg/dL (38-98)
== END 2024-01-27 08:51 | disposition home or self-care (01) ==
LOC: HO.LAB 08:50
PROVIDERS: PCP Internal Medicine; Visit Provider Internal Medicine Gastroenterology
DX: E50.9 Vitamin A deficiency, unspecified (principal); E54 Ascorbic acid deficiency
CPT/HCPCS: 36415; 82607; 82746; 84425; 84590; 84630

== ENCOUNTER 2024-05-01 08:55 | Outpatient (REF) | payer BC, SELFPAY ==
[2024-05-06 14:03] LABS: Vitamin D 25-OH, D2 <4 ng/mL; Vitamin D 25-OH, D3 41 ng/mL; Vitamin D 25-OH, Total 41 ng/mL (30-100)
== END 2024-05-01 08:56 | disposition home or self-care (01) ==
LOC: HO.LAB 08:55
PROVIDERS: PCP Internal Medicine; Visit Provider Student in an Organized Health Care Education/Training Program
DX: E55.9 Vitamin D deficiency, unspecified (principal)
CPT/HCPCS: 36415; 82306

== ENCOUNTER 2024-05-22 10:12 | Outpatient (REF) | payer BC, SELFPAY ==
[2024-05-22 11:34] LABS: MANUAL DIFF FLAG NO
[2024-05-22 12:02] LABS: Basophils Absolute Auto 0.1 X10*3/uL (0.0-0.2); Basophils Percent Auto 1.1 % (0-2); Eosinophils Absolute Auto 0.1 X10*3/uL (0.0-0.4); Eosinophils Percent Auto 2.2 % (0-4); Hematocrit 42.7 % (37.0-47.0); Hemoglobin 13.3 g/dl (12.0-16.0); Imm Gran Abs Auto 0.01 X10*3/uL (0.00-0.03); Imm Gran Pct Auto 0.2 % (0.0-0.4); Lymphocytes Absolute Auto 1.2 X10*3/uL (1.2-4.9); Lymphocytes Percent Auto 22.5 % (20-40); Mean Corpuscular HGB Conc 31.1 g/dl (31.0-35.0); Mean Corpuscular Hemoglobin 25.4 pg (27.0-33.0); Mean Corpuscular Volume 81.6 fL (80.0-98.0); Mean Platelet Volume 9.9 fL (9.4-12.3); Monocytes Absolute Auto 0.5 X10*3/uL (0.1-1.2); Monocytes Percent Auto 8.7 % (2-11); Neutrophils Absolute Auto 3.6 x10*3/uL (2.0-8.3); Neutrophils Percent Auto 65.3 % (45-73); Platelet Count 265 X10*3/uL (160-400); Red Blood Count 5.23 X10*6/uL (4.20-5.50); Red Cell Distribution Width 14.9 % (11.0-16.0); White Blood Count 5.5 X10*3/uL (4.8-10.8)
[2024-05-22 12:43] LABS: Erythrocyte Sedimentation Rate 11 MM/HR (0-20)
[2024-05-22 12:44] LABS: Alanine Aminotransferase 15 U/L (0-31); Albumin Level 4.1 g/dL (3.5-5.0); Alkaline Phosphatase 115 U/L (39-117); Anion Gap 11 (12-20); Aspartate Amino Transferase 20 U/L (5-31); Bilirubin Total 0.5 mg/dL (0.0-1.0); Blood Urea Nitrogen 8 mg/dL (9-16); C Reactive Protein 0.38 mg/dL (< or = 0.50); Calcium 9.5 mg/dL (8.4-10.2); Carbon Dioxide 27 mmol/L (22-29); Chloride 108 mmol/L (96-108); Estimated Glomerular Filt Rate > 60; Glucose Random 94 mg/dL (60-115); Potassium 3.8 mmol/L (3.3-5.1); Sodium 142 mmol/L (135-145); Total Protein 7.6 g/dL (6.5-8.0)
[2024-05-22 12:46] LABS: HBS Num1 0.13 mIU/mL (0-7.99); HBc Num1 0.07 S/CO (0.00-0.79); HBsAGNum1 0.37 S/CO (0.00-0.99); Hepatitis A Antibody IgM 0.25 Index (0-0.79); Hepatitis B Core Antibody Nonreactive (Nonreactive); Hepatitis B Surface Antigen Negative (Negative); ~HepC Num1 0.09 S/CO (0.00-0.79); ~Hepatitis A Antibody IgM Nonreactive (Nonreactive); ~Hepatitis B Surface Antibody NONREACTIVE (Nonreactive); ~Hepatitis C Antibody Nonreactive (Nonreactive)
[2024-05-25 16:38] LABS: TS Negative Control Passed; TS Panel A 0; TS Panel B 0; TS Positive Control Passed; TSpotTB Negative (Negative)
== END 2024-05-22 10:13 | disposition home or self-care (01) ==
LOC: HO.LAB 10:12
PROVIDERS: PCP Internal Medicine; Visit Provider Student in an Organized Health Care Education/Training Program
DX: M05.9 Rheumatoid arthritis with rheumatoid factor, unspecified (principal); Z11.1 Encounter for screening for respiratory tuberculosis; Z11.59 Encounter for screening for other viral diseases; Z72.89 Other problems related to lifestyle
CPT/HCPCS: 36415; 80053; 85025; 85652; 86140; 86481; 86704; 86706; 86709; 86803; 87340

== ENCOUNTER 2024-05-22 10:12 | Outpatient (AMB) | payer BC, SELFPAY ==
--- NOTE | 2024-05-22 10:17 | A.OFFVIS_ITS ---
Vital Signs 05/22/24 10:21 Height 5 ft 4 in Weight 156 lb 15.506 oz BMI 26.9 BP 134/70 Blood Pressure Location Lt brachial Position Sitting Pulse 70 Pulse Source Pulse Oximeter Pulse Oximetry (%) 97 Oxygen Delivery Method Room Air Intake Visit Reasons: RA/osteoporosis Intake Note: Patient presents for RA and Osteoporosis. Allergies No Known Allergies [No Known Allergies*] Allergy (Verified 05/22/24 10:20) Medication List - Last Reconciled 05/22/24 by Tanika Baez MD acetaminophen ER (Tylenol 8 Hour) 1,300 mg PO Q12H PRN ascorbic acid (vitamin C) 1 g (2 x 500 mg) PO DAILY cholecalciferol (vitamin D3) 1,250 mcg PO QWEEK 30 days folic acid 1 mg PO DAILY hydroxychloroquine One tab twice daily 5 days a week and 1 tab daily 2 days a week mecobalamin (vitamin B12) 1,000 mcg PO DAILY methotrexate sodium 10 mg (4 x 2.5 mg) PO QWEEK omeprazole 20 mg PO BID triamcinolone acetonide 0.5% 1 appl topical Q OTHER DAY PRN vitamin A palmitate 10,000 units PO DAILY 30 days HPI Comments Details: Patient is a 69-year-old female with vitamin-A and vitamin-C deficiency, osteoporosis and seropositive rheumatoid arthritis here today for follow up Interval History: Patient last seen 01/20/[address] Simpson. At that time patient remained on methotrexate and Plaquenil noting intermittent joint pain in her hands shoulder and ankles. The exam at that time did not show any evidence of active synovitis and medication was continued. Today, Patient feels overall well Complains of right index finger stuck after trying to open a jar and she manually reduced it. Has not recurred No falls or fractures Rheumatologic History: Seropositive RA +++RF +++CCP Methotrexate 2018 - attempted to wean Mtx 2022 - On 10mg weekly had flare and plaquenil was added Plaquenil added 10/2022 Current Rheumatology Medication(s): Methotrexate 10mg weekly Folic acid 1mg daily Plaquenil 400mg 4 days a week, 200mg 3 days a week FOR[facility]LY [facility] Medical History (Updated 05/22/24 @ 11:11 by Tanika Baez MD) Encounter for monitoring denosumab therapy Pelvic prolapse Anxiety Anxiety Acid reflux Osteoporosis Tailor's bunionette, left Polyarthritis GERD (gastroesophageal reflux disease) Iron deficiency Seropositive rheumatoid arthritis Surgical History History of esophagogastroduodenoscopy (EGD) Hx of tooth extraction History of colonoscopy H/O cystoscopy H/O hemorrhoidectomy Family History Mother CVD (cardiovascular disease) Father No problems noted. Social History Household Members: Family Household Members Other:: Grandson Housing: Apartment Alcohol intake: never Patient Tobacco Use Status: Former Tobacco user Tobacco use type: Cigarette Cigarettes Per Day: 7 Years Smoked: many e-Cigarette/Vaping Use: Never Used Second Hand Smoke Exposure: No service: No Current occupational status: employed Current occupation: [employer] Cognitive needs: No Hearing needs: No Vision needs: Yes Review of Systems Const Details: Review of Systems Constitutional: Denies fever, chills, weight loss ENT: Denies vision changes, eye pain or eye redness, dental caries, dry mouth GI: Denies nausea, vomiting, diarrhea, abdominal pain, change in BM Pulm: Denies SOB, CRESPO, hemoptysis, wheezing Cards: Denies chest pain, palpitations Skin: Denies Raynaud's, rash, nail changes, photosensitivity, 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 Well appearing and in no apparent painful distress HEENT Conjunctiva and sclera clear. ?Pupils equal round and reactive to light. ?No lymphadenopathy. ? CHEST/RESPIRATORY SYSTEM Normal respiratory effort and able to speak in complete sentences. ?Clear to auscultation bilaterally. ?No crackles, rales, rhonchi, wheezes heard. CARDIAC SYSTEM Regular rate and rhythm. ?S1 and S2 heard no murmurs. 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 No deformities noted. ?No synovitis noted to the MCPs, PIPs or DIPs. ?No tenderness to palpation of these joints. Wrists: ?Full range of motion at the wrists without pain. ?No tenderness to palpation or synovitis noted to the wrists. Elbows: Full range of motion without pain. No tenderness, weakness, swelling, increased warmth or erythema. Shoulders: Full range of motion without pain. No tenderness, weakness, swelling, increased warmth or erythema. Hips: Full range of motion without pain. Hip bursa: No tenderness to palpation Knees: ?Full range of motion. ?No tenderness, swelling, increased warmth or erythema.?No effusion or crepitations Ankles: Full range of motion. ?No tenderness, swelling, increased warmth or erythema.? Feet: ?Negative squeeze test. ?No tenderness to palpation or swelling of the MTPs. Tender points:?No tenderness to palpation of the bilateral trapezius, supraspinatus, greater trochanters, anterior costochondral junctions, bilateral gluteal areas, bilateral suboccipital muscle insertions SKIN Skin intact without rashes. Results Reviewed Results Reviewed: Laboratory Tests 07/13/18 01/25/23 01/10/24 16:20 10:08 09:38 WBC 4.4 L RBC 5.07 Hgb 13.0 Hct 41.6 Plt Count 247 ESR 7 Sodium 142 Potassium 3.3 Chloride 108 Carbon Dioxide 28 BUN 7 L Creatinine 0.84 AST 16 ALT 11 Alkaline Phosphatase 109 C-Reactive Protein 0.37 25-OH Vitamin D Total Rheumatoid Factor 179.3 H Cycl Citrul Peptide IgG >250 H Hepatitis A IgM Ab Nonreactive Hep Bs Antigen Negative Hep Bs Antibody NONREACTIVE Hep B Core Total Ab Nonreactive Hepatitis C Ab (EIA) Nonreactive TB Test (T-Spot) Com Negative 05/01/24 09:02 WBC RBC Hgb Hct Plt Count ESR Sodium Potassium Chloride Carbon Dioxide BUN Creatinine AST ALT Alkaline Phosphatase C-Reactive Protein 25-OH Vitamin D Total 41 Rheumatoid Factor Cycl Citrul Peptide IgG Hepatitis A IgM Ab Hep Bs Antigen Hep Bs Antibody Hep B Core Total Ab Hepatitis C Ab (EIA) TB Test (T-Spot) Com DEXA 05/21/2022 FINDINGS: AP SPINE L2-L3 (excluding L1 and L4): The data of L1-L4 has been changed to exclude the L1 and L4 vertebral bodies, because mild degenerative changes at these levels may cause overestimation of lumbar spine density. Current: BMD 0.745 g/cm2, Z-score -2.1, T-score -3.8, osteoporosis, 8.4% decrease from previous, 30.2% decrease from baseline (<5% change is not significant). Prior: BMD 0.813 g/cm2. Baseline: BMD 1.068 g/cm2. LEFT FEMUR, NECK: Current: BMD 0.630 g/cm2, Z-score -1.3, T-score -2.9, osteoporosis. Prior: BMD 0.762 g/cm2. Baseline: BMD 0.803 g/cm2. LEFT FEMUR, TOTAL: Current: BMD 0.652 g/cm2, Z-score -1.4, T-score -2.8, osteoporosis, 16.3% decrease from previous, 20.1% decrease from baseline (<5% change is not significant). Prior: BMD 0.779 g/cm2. Baseline: BMD 0.816 g/cm2. Assessment & Plan Assessment & Plan (1) Seropositive rheumatoid arthritis: Code(s): M05.9 - Rheumatoid arthritis with rheumatoid factor, unspecified Category: Medical Plan: #Seropositive RA Patient is a 69-year-old female with vitamin deficiencies and seropositive rheumatoid arthritis. Currently in remission. Plan - Methotrexate 10mg weekly - Folic acid 1 mg daily - Labs today: CBC, CMP, ESR, CRP, hepatitis panel, T spot - RTC 4 months - Labs before visit: CBC, CMP, ESR, CRP (2) Osteoporosis: Comment: DEXA 04/2020: AP spine -3.0, Left femur neck -2.0, Left femur total -1.8 DEXA 04/2022: AP spine -3.8, Left femur neck -2.9, Left femur total -2.8 Code(s): M81.0 - Age-related osteoporosis without current pathological fracture Category: Medical Qualifiers: Osteoporosis type: age-related Presence of current pathological fracture: without current pathological fracture Qualified Code(s): M81.0 - Age- related osteoporosis without current pathological fracture Plan: #Osteoporosis Patient with severe osteoporosis that has in fact worsened from [id number]. Had a long discussion with patient about starting bone strengthening agents and her concern is the jaw complications. I discussed with patient that while there is a potential for jaw complications the risk of fracture and subsequent spinal cord injury is higher than the risk of osteonecrosis of the jaw. With this patient agrees to start Prolia. I think that due to her vitamin deficiencies it is better to use an injection as there may be issues with malabsorption that is undiagnosed. Additionally given her severe osteoporosis injection with either Prolia or Evenity is warranted and patient opted for the former. 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 Limit alcohol and avoid Bactrim ? Monitoring: ?CBC, BMP, LFTs every 3-4 months and hepatitis serologies as needed (4) Long-term use of hydroxychloroquine: Comment: Eye exam 10/2023. Okay Code(s): Z79.899 - Other long-term (current) drug therapy Category: Medical Plan: #Long-term Use of Hydroxychloroquine Discussed with patient the risks and benefits of hydroxychloroquine in managing the rheumatic condition Benefits include: - Reduced pain, reduce mortality, maintenance of remission and reduction of flares Risks include: - GI upset, skin hyperpigmentation, retinal toxicity (especially after more than 5 years of use), myopathy Advised yearly ophthalmology visits Last ophthalmology visit: 10/2023 (5) Encounter for monitoring denosumab therapy: Code(s): Z51.81 - Encounter for therapeutic drug level monitoring; Z79.620 - longterm (current) use of immunosuppressive biologic Category: Medical Plan: #Long-term use of Denosumab Discussed with patient the risks and benefits of denosumab (Prolia) for the management of their osteoporosis Benefits include improved bone density, decreased fracture risk Risks include rapid bone loss if denosumab stopped, osteonecrosis of the jaw especially in patients with poor oral hygiene/diabetes/use of glucocorticoids/age greater than 65 years, atypical femoral fractures, injection site reactions. Mild increased risk of infections due to RANKL on T helper cells, increased risk of hypocalcemia especially in CKD patients Keep vitamin-D at least 35 ng/mL Advised to delay non emergent dental procedures to toward the end of the 6 month cycle and if they plan to stop denosumab would need to continue antiresorptive to maintain the effects of denosumabe Plan I spent 35 minutes reviewing the record and labs, taking a history, examining the patient, discussing the treatment plan and documenting in the medical record Orders: Orders C Reactive Protein 4 Months M05.9 - Rheumatoid arthritis with rheumatoid factor, unspecified Complete Blood Count Auto Diff 4 Months M05.9 - Rheumatoid arthritis with rheumatoid factor, unspecified C Reactive Protein Today M05.9 - Rheumatoid arthritis with rheumatoid factor, unspecified Hepatitis A,B,C Profile Today M05.9 - Rheumatoid arthritis with rheumatoid factor, unspecified T Spot TB Today M05.9 - Rheumatoid arthritis with rheumatoid factor, unspecified Erythrocyte Sedimentation Rate Today M05.9 - Rheumatoid arthritis with rheumatoid factor, unspecified Comprehensive Met. Panel 4 Months M05.9 - Rheumatoid arthritis with rheumatoid factor, unspecified Erythrocyte Sedimentation Rate 4 Months M05.9 - Rheumatoid arthritis with rheumatoid factor, unspecified Complete Blood Count Auto Diff Today M05.9 - Rheumatoid arthritis with rheumatoid factor, unspecified Comprehensive Met. 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
[2024-05-22 10:21] VITALS: BP 134/70; PULSE 70; O2SAT 97; BMI 26.9
== END 2024-05-22 11:03 | disposition home or self-care (01) ==
PROVIDERS: PCP Internal Medicine; Visit Provider Student in an Organized Health Care Education/Training Program
DX: M05.79 Rheumatoid arthritis with rheumatoid factor of multiple sites without organ or systems involvement (principal); M81.0 Age-related osteoporosis without current pathological fracture; Z79.899 Other long term (current) drug therapy; Z51.81 Encounter for therapeutic drug level monitoring; Z79.620 Long term (current) use of immunosuppressive biologic
CPT/HCPCS: 99214

== ENCOUNTER 2024-05-23 10:49 | Outpatient (AMB) | payer BC, SELFPAY ==
[2024-05-23 10:50] VITALS: BP 158/76; PULSE 71; O2SAT 96; BMI 26.9
--- NOTE | 2024-05-23 10:50 | A.OFFPC_ITS ---
Vital Signs 05/23/24 10:50 Height 5 ft 4 in Weight 157 lb BMI 26.9 BP 158/76 H Blood Pressure Location Lt brachial Position Sitting Pulse 71 Pulse Source Pulse Oximeter Pulse Oximetry (%) 96 Oxygen Delivery Method Room Air Intake Visit Reasons: F/U care Allergies No Known Allergies [No Known Allergies*] Allergy (Verified 05/23/24 10:51) Medication List - Last Reconciled 05/24/24 by Zuhair Valencia MD acetaminophen ER (Tylenol 8 Hour) 1,300 mg PO Q12H PRN ascorbic acid (vitamin C) 1 g (2 x 500 mg) PO DAILY cholecalciferol (vitamin D3) 1,250 mcg PO QWEEK 30 days folic acid 1 mg PO DAILY hydroxychloroquine One tab twice daily 5 days a week and 1 tab daily 2 days a week mecobalamin (vitamin B12) 1,000 mcg PO DAILY methotrexate sodium 10 mg (4 x 2.5 mg) PO QWEEK omeprazole 20 mg PO BID triamcinolone acetonide 0.5% 1 appl topical Q OTHER DAY PRN vitamin A palmitate 10,000 units PO DAILY 30 days Tobacco use date assessed: 05/23/24 Fall risk assessment: No Falls in past year Last assessed Fall Risk: 05/23/24 Dental Screening Dental Screen Date: 05/23/24 Did you have a dental visit in the last 12 months?: Yes Did you have a dental problem in the last 6 months where you did not have access to dental care?: No Was dental information given to patient?: Patient has dentist HPI F/U care HPI Details RA on rx; sees rheumatology; doing well [facility], [facility] Medical History (Updated 05/23/24 @ 11:28 by Zuhair Valencia MD) Encounter for monitoring denosumab therapy Pelvic prolapse Anxiety Anxiety Acid reflux Osteoporosis Tailor's bunionette, left Polyarthritis GERD (gastroesophageal reflux disease) Iron deficiency Seropositive rheumatoid arthritis Surgical History History of esophagogastroduodenoscopy (EGD) Hx of tooth extraction History of colonoscopy H/O cystoscopy H/O hemorrhoidectomy Family History Mother CVD (cardiovascular disease) Father No problems noted. Social History Household Members: Family Household Members Other:: Grandson Housing: Apartment Alcohol intake: never Patient Tobacco Use Status: Former Tobacco user Tobacco use type: Cigarette Cigarettes Per Day: 7 Years Smoked: many Packs per year/per ci.00 e-Cigarette/Vaping Use: Never Used Second Hand Smoke Exposure: No service: No Current occupational status: employed Current occupation: [employer] Cognitive needs: No Hearing needs: No Vision needs: Yes Questionnaire PHQ-9 Over the last 2 weeks, how often have you been bothered by any of the following problems? 1. Little interest or pleasure in doing things: several days 2. Feeling down, depressed, or hopeless: several days 3. Trouble falling or staying asleep, or sleeping too much: several days 4. Feeling tired or having little energy: several days 5. Poor appetite or overeating: several days 6. Feeling bad about yourself - or that you are a failure or have let yourself or your family down: not at all 7. Trouble concentrating on things, such as reading the newspaper or watching television: several days 8. Moving or speaking so slowly that other people could have noticed. Or the opposite - being so fidgety or restless that you have been moving around a lot more than usual: not at all 9. Thoughts that you would be better off or of hurting yourself in some way: not at all Total score: 6 Depression Screening Interpretation: Positive Depression Screening Done: Yes 01268 - PHQ-9 Billing: Yes Source: Developed by Drs. Abdon Gallo, Radha Tabares, Chad Osei and colleagues, with an educational joanna from [employer]. Thrive Questionnaire Date Thrive assessed: 05/23/24 AUDIT C Alcohol Use Questionnaire (AUDIT-C) 1. How often do you have a drink containing alcohol?: Never Total Score: 0 CB-7 AMB Questionnaire CB-7 Date CB - 7 assessed: 05/23/24 Feeling nervous, anxious, or on edge: 1 = Several days Not being able to stop or control worryin = Several days Worrying too much about different things: 1 = Several days Trouble relaxin = Several days Being so restless that it is hard to sit still: 1 = Several days Becoming easily annoyed or irritable: 1 = Several days Feeling afraid as if something awful might happen: 1 = Several days Total CB-7 score (0-4 normal; 5-9 mild; 10-14 moderate; 15-21 severe): 7 Source: Developed by Drs. Abdon Gallo, Radha Tabares, Chad Osei and colleagues, with an educational joanna from [employer]. CB-7 Assessment Billing CB-7 Assessment Tool: CB-7 Assessment 07805 Review of Systems Const Denies chills, Denies headache(s) and Denies weight loss ENT Denies headache(s) Card Denies chest pain, Denies syncope, Denies irregular heart rhythm and Denies dyspnea Resp Denies chest congestion, Denies cough and Denies dyspnea GI Denies abdominal pain, Denies change in stool character, Denies nausea and Denies vomiting Musc Denies deformity and Denies joint swelling Neuro Denies syncope and Denies headache(s) Physical exam (Primary Care) Vital Signs: Last Vital Signs Pulse 71 05/23/24 10:50 BP 158/76 H 05/23/24 10:50 Pulse Ox 96 05/23/24 10:50 Oxygen Delivery Method Room Air 05/23/24 10:50 BMI result Body Mass Index 26.9 Tobacco/Smoking Status: Tobacco use Status Tobacco use date assessed 05/23/24 05/23/24 10:56 Patient Tobacco Use Status Former Tobacco user 05/23/24 10:56 Tobacco use type Cigarette 05/23/24 10:56 e-Cigarette/Vaping Use Never Used 05/23/24 10:56 PHQ-9: PHQ-9 Score PHQ-9: Total score 6 05/23/24 10:56 Depression Screening Interpretation: Positive Thrive Assessment: Date of Thrive Assessment Date Thrive assessed 05/23/24 05/23/24 10:56 Const General: cooperative, comfortable, no acute distress and alert Neck Neck: Yes no lymphadenopathy Thyroid: Thyroid normal Resp Effort & Inspection: normal respiratory effort Auscultation: clear to auscultation bilaterally Percussion: percussion normal Cardio Jugular venous distension: no JVD Palpation: normal PMI Rate: regular rate Rhythm: regular rhythm Heart sounds: S1 normal heart sound present and S2 normal heart sound present GI Inspection: Yes normal to inspection Palpation (GI): No hepatosplenomegaly present Skin General skin exam: no rashes or lesions noted Extrem General: Yes no clubbing, cyanosis or edema Coding Level of Care Code Est Pt Level 3 (77923) Diagnoses Seropositive rheumatoid arthritis M05.9 Additional Codes CB-7 Assessment Billing - CB-7 Assessment Tool: CB-7 Assessment 09851 ([id number]) PHQ-9 - 89501 - PHQ-9 Billing: Yes ([id number]) Assessment & Plan Assessment & Plan (1) Seropositive rheumatoid arthritis: Code(s): M05.9 - Rheumatoid arthritis with rheumatoid factor, unspecified Category: Medical Plan: stable; as per rheum Orders: Orders ECG 12 lead EKG 05/23/24 R00.2 - Palpitations
== END 2024-05-23 11:31 | disposition home or self-care (01) ==
PROVIDERS: PCP Internal Medicine; Visit Provider Internal Medicine
DX: M05.9 Rheumatoid arthritis with rheumatoid factor, unspecified (principal)

== ENCOUNTER → 2024-05-23 10:49 | Outpatient (REF) | payer BC, SELFPAY ==
--- NOTE | 2024-05-23 11:54 | ECG_ITS ---
Test Reason : PALPITATIONS Blood Pressure : */* mmHG Vent. Rate : 66 BPM Atrial Rate : 66 BPM P-R Int : 150 ms QRS Dur : 92 ms QT Int : 414 ms P-R-T Axes : 59 -17 56 degrees QTcB Int : 434 ms Normal sinus rhythm Normal ECG No previous ECGs available Referred By: Zuhair Valencia Electronically Signed By: Jose Rivera
== END ==
LOC: HO.CARD 10:49
PROVIDERS: PCP Internal Medicine; Visit Provider Internal Medicine
DX: R00.2 Palpitations (principal)
CPT/HCPCS: 93005; 96127

== ENCOUNTER → 2024-05-23 11:54 | Outpatient (BNV) | payer BC, SELFPAY | PROVIDERS: PCP Internal Medicine; Visit Provider Internal Medicine Cardiovascular Disease | DX: R00.2 Palpitations (principal) | CPT/HCPCS: 93010 ==

== ENCOUNTER 2024-07-03 09:48 | Outpatient (REF) | payer BC, SELFPAY ==
--- NOTE | ~2024-07-03 | MM_ITS ---
EXAMINATION: DXA BONE DENSITY AXIAL HISTORY: Estrogen deficiency TECHNIQUE: Let Dual energy absorptiometry (DEXA) of the lumbar spine, total left hip, and femoral neck was performed. COMPARISON: Comparison is made with the prior examination dated 05/21/2022. FINDINGS: The bone mineral density of the lumbar spine is 0.834 with a T-score of -2.9, and a Z-score of -1.4. This is indicative of osteoporosis. This represents a BMD change of 4.0% compared to the prior exam. This is statistically significant. The bone mineral density of the left total hip is 0.717 with a T-score of -2.3, and a Z-score of -1.0. This is indicative of osteopenia. This represents a BMD change of 10.0% compared to the prior exam. This is statistically significant. The bone mineral density of the left femoral neck is 0.698 with a T-score of -2.4, and a Z-score of -0.9. This is indicative of osteopenia. This represents a BMD change of 10.8% compared to the prior exam. MM/XR DEXA axial skeleton IMPRESSION: Based on bone mineral density, and according to World Health Organization (WHO) criteria, the diagnosis is consistent with osteoporosis. All bone density values are in grams per centimeter squared (g/cm2). Statistically, 68% of repeat scans fall within 1 SD (+/- 0.010 g/cm2 for AP spine L1-L4) and 1 SD (+/- 0.012 g/cm2 for femur total) FRAX is a trademark of the [employer]'s [place] for Metabolic Bone Disease, a World Health Organization (WHO) Collaborating Center. Electronically signed by: Abdon Davis MD 07/04/2024 11:00 AM EDT
== END 2024-07-03 09:49 | disposition home or self-care (01) ==
LOC: HO.MAMMO 09:48
PROVIDERS: PCP Internal Medicine; Visit Provider Student in an Organized Health Care Education/Training Program
DX: Z12.31 Encounter for screening mammogram for malignant neoplasm of breast (principal)
CPT/HCPCS: 77063; 77067; 77080

== ENCOUNTER → 2024-07-03 10:00 | Outpatient (BNV) | payer BC, SELFPAY | PROVIDERS: PCP Internal Medicine; Visit Provider Radiology Diagnostic Radiology | DX: E28.39 Other primary ovarian failure (principal) | CPT/HCPCS: 77080 ==

== ENCOUNTER 2024-07-17 12:08 | Outpatient (REF) | payer BC, SELFPAY ==
[2024-07-17 12:27] LABS: MANUAL DIFF FLAG NO
[2024-07-17 12:42] LABS: Basophils Absolute Auto 0.1 X10*3/uL (0.0-0.2); Basophils Percent Auto 0.9 % (0-2); Eosinophils Absolute Auto 0.2 X10*3/uL (0.0-0.4); Eosinophils Percent Auto 2.8 % (0-4); Hematocrit 40.7 % (37.0-47.0); Hemoglobin 12.5 g/dl (12.0-16.0); Imm Gran Abs Auto 0.01 X10*3/uL (0.00-0.03); Imm Gran Pct Auto 0.2 % (0.0-0.4); Lymphocytes Absolute Auto 1.6 X10*3/uL (1.2-4.9); Lymphocytes Percent Auto 28.5 % (20-40); Mean Corpuscular HGB Conc 30.7 g/dl (31.0-35.0); Mean Corpuscular Hemoglobin 24.9 pg (27.0-33.0); Mean Corpuscular Volume 80.9 fL (80.0-98.0); Mean Platelet Volume 9.9 fL (9.4-12.3); Monocytes Absolute Auto 0.5 X10*3/uL (0.1-1.2); Monocytes Percent Auto 8.5 % (2-11); Neutrophils Absolute Auto 3.2 x10*3/uL (2.0-8.3); Neutrophils Percent Auto 59.1 % (45-73); Platelet Count 290 X10*3/uL (160-400); Red Blood Count 5.03 X10*6/uL (4.20-5.50); Red Cell Distribution Width 15.8 % (11.0-16.0); White Blood Count 5.4 X10*3/uL (4.8-10.8)
[2024-07-17 13:10] LABS: Alanine Aminotransferase 12 U/L (0-31); Albumin Level 4.1 g/dL (3.5-5.0); Anion Gap 10 (12-20); Aspartate Amino Transferase 18 U/L (5-31); Bilirubin Total 0.7 mg/dL (0.0-1.0); Blood Urea Nitrogen 8 mg/dL (9-16); C Reactive Protein 0.31 mg/dL (< or = 0.50); Calcium 9.3 mg/dL (8.4-10.2); Carbon Dioxide 28 mmol/L (22-29); Chloride 107 mmol/L (96-108); Estimated Glomerular Filt Rate > 60; Glucose Random 85 mg/dL (60-115); Potassium 3.6 mmol/L (3.3-5.1); Sodium 141 mmol/L (135-145); Total Protein 7.1 g/dL (6.5-8.0)
[2024-07-17 13:18] LABS: Alkaline Phosphatase 115 U/L (39-117); Erythrocyte Sedimentation Rate 13 MM/HR (0-20)
== END 2024-07-17 12:09 | disposition home or self-care (01) ==
LOC: HO.LAB 12:08
PROVIDERS: PCP Internal Medicine; Visit Provider Student in an Organized Health Care Education/Training Program
DX: M05.9 Rheumatoid arthritis with rheumatoid factor, unspecified (principal)
CPT/HCPCS: 36415; 80053; 85025; 85652; 86140

== ENCOUNTER 2024-07-25 09:51 | Outpatient (AMB) | payer BC, SELFPAY ==
--- NOTE | 2024-07-25 10:19 | AM.OFFVISNUR ---
Intake Visit Reasons: prolia injection Allergies No Known Allergies [No Known Allergies*] Allergy (Verified 05/23/24 10:51) Office Meds Prolia 60 mg/mL subcutaneous syringe Performing Provider: Tanika Baez MD Performing Location: [facility] [place] [facility] Administered by: Soraya Patel RN on 07/25/24 10:19 Dose Route Admin Location Dispensed Lot Number Expiration Date ND Sample Tailor 60 mg subcut right upper arm 1 mL [id number] 10/25/26 68093-871-00 [facility] Comments: Patient tolerated injection well. Consent signed. This was patients first Prolia injection. Patient educated on side effects and monitored for 15 minutes after injection without any reactions. Assessment & Plan Assessment & Plan Orders: Orders AMB Denosumab Injection Practice Supplied Today M81.0 - Age-related osteoporosis without current pathological fracture Medications: New Prolia (denosumab) 60 mg subcut ONCE 1 mL 0RF NS M81.0 - Age-related osteoporosis without current pathological fracture Coding
== END 2024-07-25 10:18 | disposition home or self-care (01) ==
PROVIDERS: PCP Internal Medicine; Visit Provider Student in an Organized Health Care Education/Training Program
DX: M81.0 Age-related osteoporosis without current pathological fracture (principal)

== ENCOUNTER → 2024-07-25 09:51 | Outpatient (BNVA) | payer BC, SELFPAY | PROVIDERS: PCP Internal Medicine; Visit Provider Student in an Organized Health Care Education/Training Program | DX: M81.0 Age-related osteoporosis without current pathological fracture (principal) | CPT/HCPCS: 96372; J0897 ==

== ENCOUNTER 2024-12-07 10:21 | Outpatient (AMB) | payer BC, SELFPAY ==
--- NOTE | 2024-12-07 10:41 | A.OFFPC_ITS ---
Vital Signs 12/07/24 10:44 Height 5 ft 4 in Weight 159 lb BMI 27.3 BP 124/82 Blood Pressure Location Lt brachial Position Sitting Pulse 84 Pulse Source Pulse Oximeter Pulse Oximetry (%) 97 Oxygen Delivery Method Room Air Intake Visit Reasons: YURY VALENCIA/Annual exam Jewel Diameter Gauger Required: No Accompanied by: Self / Same As Patient Allergies No Known Allergies (No Known Allergies*) Allergy (Verified 12/07/24 10:54) Medication List - Last Reconciled 12/07/24 by Christina Ballesteros PA-C acetaminophen ER (Tylenol 8 Hour) 1,300 mg PO Q12H PRN ascorbic acid (vitamin C) 1 g (2 x 500 mg) PO DAILY cholecalciferol (vitamin D3) 50 mcg PO DAILY folic acid 1 mg PO DAILY hydroxychloroquine One tab twice daily 5 days a week and 1 tab daily 2 days a week mecobalamin (vitamin B12) 1,000 mcg PO DAILY methotrexate sodium 10 mg (4 x 2.5 mg) PO QWEEK triamcinolone acetonide 0.5% 1 appl topical Q OTHER DAY PRN Tobacco use date assessed: 12/07/24 Fall risk assessment: No Falls in past year Last assessed Fall Risk: 12/07/24 Dental Screening Dental Screen Date: 12/07/24 Did you have a dental visit in the last 12 months?: Yes Did you have a dental problem in the last 6 months where you did not have access to dental care?: No Was dental information given to patient?: Patient has dentist HPI YURY VALENCIA/Annual exam HPI Details 69-year-old female with past medical his tory of rheumatoid arthritis, GERD, anxiety, osteoporosis last seen 04/[address] Valencia coming in for transfer care. Presenting for a wellness visit and management of chronic conditions. The patient reports the presence of spider veins that sometimes become hard. She is seeking a referral to vascular surgery for evaluation and management. Vaginal bleeding associated with pessary use The patient has a pessary for pelvic organ prolapse, which she removes weekly for cleaning. She reports occasional vaginal bleeding and discomfort, suggesting the pessary may not be fitting properly. She has been advised to follow up with a receiving teller for reassessment and possible refitting. The patient experiences difficulty sleeping due to anxiety. She is considering starting trazodone to help with sleep, with a plan to monitor for any adverse effects. The patient reports discomfort in her toenail, which is exacerbated by wearing shoes. She has a history of a toenail issue where a bone was growing inside, requiring surgical intervention. A referral to podiatry has been made for further evaluation. The patient has a history of low bone density and is receiving Prolia injections. She had a bone density test in June, which showed poor results, prompting the continuation of Prolia treatment. mammogram: 06/2024 DEXA: 06/2024 on Prolia colonoscopy: 2022 due in 5 years eye exam: yearly w/ [place] vaccines: due for Td and given today [facility] Medical History COVID-19 virus RNA test result positive at limit of detection Encounter for monitoring denosumab therapy Pelvic prolapse Anxiety Anxiety Acid reflux Osteoporosis Tailor's bunionette, left Polyarthritis GERD (gastroesophageal reflux disease) Iron deficiency Seropositive rheumatoid arthritis Surgical History History of esophagogastroduodenoscopy (EGD) Hx of tooth extraction History of colonoscopy H/O cystoscopy H/O hemorrhoidectomy Family History Mother CVD (cardiovascular disease) Father No problems noted. Social History Household Members: Family Household Members Other:: Grandson Housing: Apartment Alcohol intake: never Patient Tobacco Use Status: Former Tobacco user Tobacco use type: Cigarette Cigarettes Per Day: 7 Years Smoked: many e-Cigarette/Vaping Use: Never Used Second Hand Smoke Exposure: No service: No Current occupational status: employed Current occupation: [employer] Cognitive needs: No Hearing needs: No Vision needs: Yes Questionnaire PHQ-9 Over the last 2 weeks, how often have you been bothered by any of the following problems? 1. Little interest or pleasure in doing things: not at all 2. Feeling down, depressed, or hopeless: several days 3. Trouble falling or staying asleep, or sleeping too much: several days 4. Feeling tired or having little energy: several days 5. Poor appetite or overeating: several days 6. Feeling bad about yourself - or that you are a failure or have let yourself or your family down: not at all 7. Trouble concentrating on things, such as reading the newspaper or watching television: several days 8. Moving or speaking so slowly that other people could have noticed. Or the opposite - being so fidgety or restless that you have been moving around a lot more than usual: not at all 9. Thoughts that you would be better off or of hurting yourself in some way: not at all Total score: 5 Depression Screening Interpretation: Positive Depression Screening Follow-up: Existing condition Depression Screening Done: Yes Source: Developed by Drs. Abdon Gallo, Radha Tabares, Chad Osei and colleagues, with an educational joanna from [employer]. Thrive Questionnaire Date Thrive assessed: 12/07/24 I am a: Patient What is your living situation today?: I have a steady place to live Within the past 12 months, did the food you bought not last and you didn't have the money to get more?: Never true Within the past 12 months, did you worry whether your food would run out before you got money to buy more?: Never true Do you have trouble paying for medicines?: I choose not to answer this question Do you have trouble getting transportation to medical appointments?: No Do you have trouble paying your heating and electricity bill?: No Do you have trouble taking care of your child, family member or friend?: No Do you have trouble with day-to-day activities such as bathing, preparing meals, shopping, managing finances, etc.?: I choose not to answer this question Are you currently unemployed and looking for a job?: No Are you interested in more education?: No Please select the resources that you would like help with: Paying for medicine Currently or been in a relationship where the following occur: No concerns reported THRIVE Score: 0 AUDIT C Alcohol Use Questionnaire (AUDIT-C) 1. How often do you have a drink containing alcohol?: Never 2. How many drinks containing alcohol do you have on a typical day when you are drinking?: 1 or 2 3. How often do you have six or more drinks on one occasion?: Never Total Score: 0 CB-7 AMB Questionnaire CB-7 Date CB - 7 assessed: 05/23/24 Feeling nervous, anxious, or on edge: 3 = Nearly every day Not being able to stop or control worryin = Nearly every day Worrying too much about different things: 3 = Nearly every day Trouble relaxin = More than half the days Being so restless that it is hard to sit still: 1 = Several days Becoming easily annoyed or irritable: 2 = More than half the days Feeling afraid as if something awful might happen: 2 = More than half the days Total CB-7 score (0-4 normal; 5-9 mild; 10-14 moderate; 15-21 severe): 16 Source: Developed by Drs. Abdon Gallo, Radha Tabares, Chad Osei and colleagues, with an educational joanna from [employer]. CB-7 Assessment Billing CB-7 Assessment Tool: CB-7 Assessment 15884 Review of Systems Const Denies body aches, Denies chills, Denies fever(s), Denies headache(s) and Denies poor appetite Eyes Reports no additional complaints ENT Denies dysphagia, Denies dizziness, Denies headache(s) and Denies odynophagia Card Denies chest pain, Denies syncope, Denies edema, Denies irregular heart rhythm, Denies lightheadedness and Denies dyspnea Resp Denies cough and Denies dyspnea GI Denies abdominal pain, Denies constipation, Denies dysphagia, Denies diarrhea, Denies nausea, Denies odynophagia and Denies vomiting Details: small amounts of vaginal bleeding Musc Reports no additional complaints and Denies abnormal gait Skin/Breast Reports system reviewed and no additional complaints, except as documented Neuro Denies abnormal gait, Denies dizziness, Denies syncope and Denies headache(s) Psych Reports no additional complaints Physical exam (Primary Care) Vital Signs: Last Vital Signs Pulse 84 12/07/24 10:44 BP 124/82 12/07/24 10:44 Pulse Ox 97 12/07/24 10:44 Oxygen Delivery Method Room Air 12/07/24 10:44 BMI result Body Mass Index 27.3 Tobacco/Smoking Status: Tobacco use Status Tobacco use date assessed 12/07/24 12/07/24 10:50 Patient Tobacco Use Status Former Tobacco user 12/07/24 10:50 Tobacco use type Cigarette 12/07/24 10:50 e-Cigarette/Vaping Use Never Used 12/07/24 10:50 PHQ-9: PHQ-9 Score PHQ-9: Total score 5 12/07/24 12:53 Depression Screening Interpretation: Positive Depression Screening Follow-up: Existing condition Thrive Assessment: Date of Thrive Assessment Date Thrive assessed 12/07/24 12/07/24 10:50 Currently or been in a relationship where the following occur: No concerns reported Const General: cooperative, healthy appearing, comfortable and no acute distress Orientation/consciousness: patient oriented x3 HENMT Head: Yes normocephalic Ears: hearing grossly normal bilaterally, external ears normal, TM's normal bilaterally and EAC's normal General nose exam: Normal external nose present Face and sinus: Yes normal facial exam and Yes sinuses nontender Mouth: Normal oral and palatal mucosa present and tongue normal Throat: Yes posterior oropharynx normal Eyes General: appearance normal, both eyes and all related structures Conjunctivae: conjunctivae normal Pupils: Equal, round and reactive pupils present EOM: EOMs intact bilaterally and No Nystagmus present Neck Neck: Yes normal visual inspection, Yes full ROM and Yes no lymphadenopathy Chest Chest palpation & inspection: normal inspection of the chest Resp Effort & Inspection: normal respiratory effort Auscultation: clear to auscultation bilaterally, no crackles, no rales, no rhonchi, no wheezes and breath sounds present Cardio Rate: regular rate Rhythm: regular rhythm Peripheral pulses: radial pulses present and dorsalis pedis present GI Inspection: Yes normal to inspection and No Abdominal wall edema Palpation (GI): Soft to palpation, not firm and nontender Auscultation: normal bowel sounds Rectal Exam - Female: deferred General: Yes no CVA tenderness Back/Spine/Pelvis Back: no CVA tenderness Skin Other: Numerous spider veins around bilateral ankles. Right great toe nail deformity without evidence of onychomycosis General skin exam: no rashes or lesions noted Neuro General: patient oriented x3 Cranial nerves: Yes Equal, round and reactive pupils present, Yes Midline tongue present, Yes Ability to bilaterally elevate shoulders present and No Nystagmus present Gait exam (Neuro): Normal gait present Extrem General: Yes normal to inspection, Yes full ROM, No no pedal edema and No edema Psych Speech and movement: Normal speech and movement present Affect: normal affect Insight: Good insight present (Psych) Judgement: Good judgement present (Psych) Immunizations Tenivac (PF) 5 Lf unit-2 Lf unit/0.5 mL intramuscular syringe Performing Provider: Christina Ballesteros PA-C [facility] Administered by: JAVI Mcmillan on 12/07/24 11:29 Dose Route Admin Location Dispensed Lot Number Expiration Date NDC Retail Greeter 0.5 mL IM Left Deltoid 0.5 mL [id number] 06/26/26 [id number] [employer] Total Dispensed Waste 0.5 mL 0 % VIS Given Date VIS Provided VIS Publication Date 12/07/24 Single Vaccine 20 Eligibility Eligibility Date Funding Source Not [facility] Eligible 12/07/24 Private Coding Level of Care Code Est Pt Prev Care >65y(97011) Diagnoses Physical exam Z00.00 Anxiety F41.9 Age-related osteoporosis without current pathological fracture M81.0 Osteoporosis type: age-related Presence of current pathological fracture: without current pathological fracture Acid reflux K21.9 Tubular adenoma D36.9 Seropositive rheumatoid arthritis M05.9 Spider veins of both lower extremities I83.93 Seborrheic keratosis L82.1 Vaginal bleeding N93.9 Stress incontinence N39.3 Nail deformity L60.8 Additional Codes CB-7 Assessment Billing - CB-7 Assessment Tool: CB-7 Assessment 44340 ([id number]) Assessment & Plan Assessment & Plan (1) Physical exam: Code(s): Z00.00 - Encounter for general adult medical examination without abnormal findings Category: Medical Plan: Patient is up-to-date on all recommended routine screenings and vaccinations for her age. She is due for tetanus vaccine which was given in the office today. I did order for repeat blood work in reviewing her previous blood work with her in the office. Healthy diet and regular exercise is encouraged. (2) Anxiety: Comment: declines rx Code(s): F41.9 - Anxiety disorder, unspecified Category: Medical Plan: The patient has been screened positive for anxiety and is considering medication management. Trazodone has been discussed as an option to help with sleep and anxiety, with monitoring for any adverse effects. (3) Osteoporosis: Comment: DEXA 04/2020: AP spine -3.0, Left femur neck -2.0, Left femur total -1.8 DEXA 04/2022: AP spine -3.8, Left femur neck -2.9, Left femur total -2.8 Code(s): M81.0 - Age-related osteoporosis without current pathological fracture Category: Medical Qualifiers: Osteoporosis type: age-related Presence of current pathological fracture: without current pathological fracture Qualified Code(s): M81.0 - Age- related osteoporosis without current pathological fracture Plan: The patient is receiving Prolia injections for low bone density, with continuation of treatment advised following poor results from a recent bone density test. (4) Acid reflux: Comment: stable; cont on rx Code(s): K21.9 - Gastro-esophageal reflux disease without esophagitis Category: Medical Plan: Avoid trigger foods such as citrus, tomato products, soda, caffeine, spicy foods and other foods that may be irritating to your stomach. Avoid laying flat 3-4 hours after eating and elevate the head of the bed 30 degrees to prevent acid from moving into the esophagus. (5) Tubular adenoma: Comment: Repeat colonoscopy1-2 years-fair prep Code(s): D36.9 - Benign neoplasm, unspecified site Category: Medical Plan: Continue to follow with GI (6) Seropositive rheumatoid arthritis: Code(s): M05.9 - Rheumatoid arthritis with rheumatoid factor, unspecified Category: Medical Plan: Continue to follow with Rheumatology at this time and on hydroxychloroquine. She does routinely follow with eye doctors given the hydroxychloroquine use. (7) Spider veins of both lower extremities: Code(s): I83.93 - Asymptomatic varicose veins of bilateral lower extremities Category: Medical Plan: The patient will be referred to vascular surgery for evaluation and management of spider veins, which sometimes become hard and uncomfortable. (8) Seborrheic keratosis: Code(s): L82.1 - Other seborrheic keratosis Category: Medical Plan: Referral was placed to Dermatology today (9) Vaginal bleeding: Code(s): N93.9 - Abnormal uterine and vaginal bleeding, unspecified Category: Medical Plan: The patient is advised to follow up with a receiving teller for reassessment of the pessary, which may require refitting due to associated vaginal bleeding and discomfort. (10) Stress incontinence: Code(s): N39.3 - Stress incontinence (female) (male) Category: Medical Plan: See above (11) Nail deformity: Code(s): L60.8 - Other nail disorders Category: Medical Plan: A referral to podiatry has been made for further evaluation of toenail discomfort, which is exacerbated by wearing shoes. Plan This note was constructed using voice recognition software. While every effort has been made to ensure accuracy and enrollment management coordinator, still areas may have been included sometimes these areas may affect the content or meeting of the given symptoms. Total time spent caring for the patient today was 30 minutes. This includes time spent before the visit reviewing the chart, time spent during the visit, and time spent after the visit and documentation. Patient was informed and verbally consented to the use of an ambient scribe for clinic note documentation during this visit. Orders: Orders TSH reflex Free T4 Today Z13.29 - Encounter for screening for other suspected endocrine disorder Lipid Panel Today Z13.220 - Encounter for screening for lipoid disorders Vitamin B12 and Folate Today Z13.21 - Encounter for screening for nutritional disorder Td Immunization Today Z23 - Encounter for immunization Referrals Vascular Surgery Referral I83.93 - Asymptomatic varicose veins of bilateral lower extremities Podiatry Referral L60.8 - Other nail disorders Dermatology Referral L82.1 - Other seborrheic keratosis Urogynecology Referral N39.3 - Stress incontinence (female) (male), N93.9 - Abnormal uterine and vaginal bleeding, unspecified, Z46.89 - Encounter for fitting and adjustment of other specified devices Medications: New trazodone 25 mg (1/2 x 50 mg) PO BEDTIME 30 tabs 0RF
[2024-12-07 10:44] VITALS: BP 124/82; PULSE 84; O2SAT 97; BMI 27.3
== END 2024-12-07 11:33 | disposition home or self-care (01) ==
LOC: HO.HMCH 10:22
PROVIDERS: PCP Internal Medicine
DX: Z00.00 Encounter for general adult medical examination without abnormal findings (principal); F41.9 Anxiety disorder, unspecified; M05.9 Rheumatoid arthritis with rheumatoid factor, unspecified; M81.0 Age-related osteoporosis without current pathological fracture; K21.9 Gastro-esophageal reflux disease without esophagitis; D36.9 Benign neoplasm, unspecified site; I83.93 Asymptomatic varicose veins of bilateral lower extremities; L82.1 Other seborrheic keratosis; N93.9 Abnormal uterine and vaginal bleeding, unspecified; N39.3 Stress incontinence (female) (male); L60.8 Other nail disorders; Z23 Encounter for immunization

== ENCOUNTER → 2024-12-07 10:21 | Outpatient (BNVA) | payer BC, SELFPAY | PROVIDERS: PCP Internal Medicine | DX: Z00.00 Encounter for general adult medical examination without abnormal findings (principal); F41.9 Anxiety disorder, unspecified; M81.0 Age-related osteoporosis without current pathological fracture; K21.9 Gastro-esophageal reflux disease without esophagitis; D36.9 Benign neoplasm, unspecified site; M05.9 Rheumatoid arthritis with rheumatoid factor, unspecified; I83.93 Asymptomatic varicose veins of bilateral lower extremities; L82.1 Other seborrheic keratosis; N93.9 Abnormal uterine and vaginal bleeding, unspecified; N39.3 Stress incontinence (female) (male); Z96.0 Presence of urogenital implants; Z23 Encounter for immunization | CPT/HCPCS: 90471; 90714; 96127 ==

== ENCOUNTER 2024-12-08 09:21 | Outpatient (REF) | payer BC, SELFPAY ==
[2024-12-08 09:36] LABS: MANUAL DIFF FLAG NO
[2024-12-08 09:51] LABS: Hematocrit 43.0 % (37.0-47.0); Hemoglobin 13.6 g/dl (12.0-16.0); Imm Gran Abs Auto 0.01 X10*3/uL (0.00-0.03); Imm Gran Pct Auto 0.2 % (0.0-0.4); Lymphocytes Absolute Auto 1.5 X10*3/uL (1.2-4.9); Mean Corpuscular HGB Conc 31.6 g/dl (31.0-35.0); Mean Corpuscular Hemoglobin 25.4 pg (27.0-33.0); Mean Corpuscular Volume 80.4 fL (80.0-98.0); NRBC Abs Auto 0.000 X10*3/uL (0.0-0.012); NRBC Pct Auto 0.0 /100WBC (0.0-0.2); Platelet Count 285 X10*3/uL (160-400); Red Blood Count 5.35 X10*6/uL (4.20-5.50); White Blood Count 5.3 X10*3/uL (4.8-10.8)
[2024-12-08 10:31] LABS: Alanine Aminotransferase 13 U/L (0-31); Albumin Level 4.4 g/dL (3.5-5.0); Alkaline Phosphatase 77 U/L (39-117); Anion Gap 12 (12-20); Aspartate Amino Transferase 20 U/L (5-31); Blood Urea Nitrogen 10 mg/dL (9-16); Calcium 9.0 mg/dL (8.4-10.2); Carbon Dioxide 27 mmol/L (22-29); Chloride 108 mmol/L (96-108); Cholesterol 232 mg/dL (<200); Estimated Glomerular Filt Rate > 60; HDL Cholesterol 89 mg/dL (>40); Potassium 3.9 mmol/L (3.3-5.1); Sodium 143 mmol/L (135-145); Total Protein 7.3 g/dL (6.5-8.0); Triglycerides 67 mg/dL (<150)
[2024-12-08 10:52] LABS: Folate 11.6 ng/mL (> or = 4.0); Vitamin B12 476 pg/mL (200-900)
== END 2024-12-08 09:22 | disposition home or self-care (01) ==
LOC: HO.LAB 09:21
PROVIDERS: Absent Provider Student in an Organized Health Care Education/Training Program; PCP Internal Medicine
DX: Z13.29 Encounter for screening for other suspected endocrine disorder (principal); Z13.220 Encounter for screening for lipoid disorders; Z13.21 Encounter for screening for nutritional disorder; Z79.899 Other long term (current) drug therapy
CPT/HCPCS: 36415; 80053; 80061; 82306; 82607; 82746; 84443; 85025; 85652; 86140

== ENCOUNTER 2024-12-11 08:47 | Outpatient (AMB) | payer BC, SELFPAY ==
--- NOTE | 2024-12-11 08:57 | A.OFFVIS_ITS ---
Vital Signs 12/11/24 09:01 Height 5 ft 4 in Weight 159 lb 13.362 oz BMI 27.4 BP 132/78 Blood Pressure Location Lt brachial Position Sitting Pulse 72 Pulse Source Pulse Oximeter Pulse Oximetry (%) 98 Oxygen Delivery Method Room Air Intake Visit Reasons: RA/osteoporosis Intake Note: Patient presents for RA and Osteoporosis follow up. Allergies No Known Allergies (No Known Allergies*) Allergy (Verified 12/11/24 09:01) HPI Comments Details: Patient is a 69-year-old female with vitamin-A and vitamin-C deficiency, osteoporosis and seropositive rheumatoid arthritis here today for follow up Interval History: Patient last seen 05/22/2024 with me. - Mtx 10mg weekly, Folic acid 1mg, and Plaquenil 400mg 4 days a week, 200mg 3 days a week - Patient feels overall well - Complains of right index finger stuck after trying to open a jar and she manu ally reduced it. Has not recurred - No falls or fractures - Started prolia due to worsening osteoporosis Today - Mtx 10mg weekly, Folic acid 1mg, and Plaquenil 400mg 4 days a week, 200mg 3 days a week - Received first dose of Prolia 06/2024 - No falls or fractures - Sometimes gets cramps in her hands that are transient Rheumatologic History: Seropositive RA +++RF +++CCP Methotrexate 2018 - attempted to wean Mtx 2022 - On 10mg weekly had flare and plaquenil was added Plaquenil added 10/2022 Current Rheumatology Medication(s): Methotrexate 10mg weekly Folic acid 1mg daily Plaquenil 400mg 4 days a week, 200mg 3 days a week Prolia 60mg SC every 6 months [facility] Medical History COVID-19 virus RNA test result positive at limit of detection Encounter for monitoring denosumab therapy Pelvic prolapse Anxiety Anxiety Acid reflux Osteoporosis Tailor's bunionette, left Polyarthritis GERD (gastroesophageal reflux disease) Iron deficiency Seropositive rheumatoid arthritis Surgical History History of esophagogastroduodenoscopy (EGD) Hx of tooth extraction History of colonoscopy H/O cystoscopy H/O hemorrhoidectomy Family History Mother CVD (cardiovascular disease) Father No problems noted. Social History Household Members: Family Household Members Other:: Grandson Housing: Apartment Alcohol intake: never Patient Tobacco Use Status: Former Tobacco user Tobacco use type: Cigarette Cigarettes Per Day: 7 Years Smoked: many e-Cigarette/Vaping Use: Never Used Second Hand Smoke Exposure: No service: No Current occupational status: employed Current occupation: [employer] Cognitive needs: No Hearing needs: No Vision needs: Yes Review of Systems Const Details: Review of Systems Constitutional: Denies fever, chills, weight loss ENT: Denies vision changes, eye pain or eye redness, dental caries, dry mouth GI: Denies nausea, vomiting, diarrhea, abdominal pain, change in BM Pulm: Denies SOB, CRESPO, hemoptysis, wheezing Cards: Denies chest pain, palpitations Skin: Denies Raynaud's, rash, nail changes, photosensitivity, [employer]ANDSC[employer]PER: Denies headaches, weakness, paresthesias, recurrent falls MSK: as per HPI All other systems reviewed and are unremarkable except noted above Physical Exam Exam Exam: Vital signs reviewed Physical Examination CONSTITUITIONAL Patient alert and cooperative. Well appearing and in no apparent painful distress MSK Hands * Right Hand: Able to make a fist. No swelling or tenderness to palpation of the MCPs, PIPs or DIPs. * Left Hand: Able to make a fist. No swelling or tenderness to palpation of the MCPs, PIPs or DIPs. * Herbedens nodes noted bilaterally Wrists * Right Wrist: Full ROM to flexion and extension. No swelling or TTP * Left Wrist: Full ROM to flexion and extension. No swelling or TTP Elbows * Right Elbow: Full ROM. No swelling or TTP. No TTP of the medial epicondyle. No TTP of the lateral epicondyle * Left Elbow: Full ROM. No swelling or TTP. No TTP of the medial epicondyle. No TTP of the lateral epicondyle Shoulders * Right shoulder: Full ROM. No swelling noted. No TTP of the AC joint. No TTP of the subacromial bursa. No TTP of the posterior shoulder * Left shoulder: Full ROM. No swelling noted. No TTP of the AC joint. No TTP of the subacromial bursa. No TTP of the posterior shoulder Hips * Right hip: Good ROM. No pain elicited with hip flexion/internal rotation/external rotation * Left hip: Good ROM. No pain elicited with hip flexion/internal rotation/external rotation Hip bursa: No tenderness to palpation bilaterally Knees * Right knee: Full ROM. No swelling noted. TTP of the knee joint line. TTP of pes anserine bursa * Left knee: Full ROM. No swelling noted. No TTP of the knee joint line. TTP of pes anserine bursa. * Crepitations felt bilaterally Ankles * Right ankle: Good ankle dorsiflexion and plantar flexion. No swelling. No TTP of the ankle joint * Left ankle: Good ankle dorsiflexion and plantar flexion. No swelling. No TTP of the ankle joint Feet * Right foot: Negative squeeze test * Left foot: Negative squeeze test Tender points? * No tenderness to palpation of the bilateral trapezius, supraspinatus, anterior costochondral junctions, bilateral suboccipital muscle insertions SKIN No rashes Vital Signs: Last Vital Signs Pulse 72 12/11/24 09:01 BP 132/78 12/11/24 09:01 Pulse Ox 98 12/11/24 09:01 Oxygen Delivery Method Room Air 12/11/24 09:01 BMI result Body Mass Index 27.4 Results Reviewed Results Reviewed: Laboratory Tests 12/08/24 09:34 WBC 5.3 RBC 5.35 Hgb 13.6 Hct 43.0 Plt Count 285 ESR 7 Sodium 143 Potassium 3.9 Chloride 108 Carbon Dioxide 27 BUN 10 Creatinine 0.74 AST 20 ALT 13 C-Reactive Protein 0.19 25-OH Vitamin D Total 29.2 L Laboratory Tests 07/13/18 16:20 Rheumatoid Factor 179.3 H Cycl Citrul Peptide IgG >250 H Laboratory Tests 05/22/24 11:33 Hepatitis A IgM Ab Nonreactive Hep Bs Antigen Negative Hep Bs Antibody NONREACTIVE Hep B Core Total Ab Nonreactive Hepatitis C Ab (EIA) Nonreactive TB Test (T-Spot) Com Negative DEXA 06/2024 FINDINGS: The bone mineral density of the lumbar spine is 0.834 with a T-score of -2.9, and a Z-score of -1.4. This is indicative of osteoporosis. This represents a BMD change of 4.0% compared to the prior exam. This is statistically significant. The bone mineral density of the left total hip is 0.717 with a T-score of -2.3, and a Z-score of -1.0. This is indicative of osteopenia. This represents a BMD change of 10.0% compared to the prior exam. This is statistically significant. The bone mineral density of the left femoral neck is 0.698 with a T-score of -2.4, and a Z-score of -0.9. This is indicative of osteopenia. This represents a BMD change of 10.8% compared to the prior exam. Assessment & Plan Assessment & Plan (1) Seropositive rheumatoid arthritis: Comment: Seropositive RA +++RF +++CCP Methotrexate 2018 - attempted to wean Mtx 2022 - On 10mg weekly had flare and plaquenil was added Plaquenil added 10/2022 Code(s): M05.9 - Rheumatoid arthritis with rheumatoid factor, unspecified Category: Medical Plan: #Seropositive RA Patient is a 69-year-old female with vitamin deficiencies and seropositive rheumatoid arthritis. Currently in remission. Plan - Methotrexate 10mg weekly - Folic acid 1 mg daily - Plaquenil 400mg 4 days a week, 200mg 3 days a week - RTC 6 months - Labs before visit: CBC, CMP, ESR, CRP (2) Osteoporosis: Comment: DEXA 04/2020: AP spine -3.0, Left femur neck -2.0, Left femur total -1.8 DEXA 04/2022: AP spine -3.8, Left femur neck -2.9, Left femur total -2.8 Prolia 06/2024 Code(s): M81.0 - Age-related osteoporosis without current pathological fracture Category: Medical Qualifiers: Osteoporosis type: age-related Presence of current pathological fracture: without current pathological fracture Qualified Code(s): M81.0 - Age- related osteoporosis without current pathological fracture Plan: #Osteoporosis Patient with severe osteoporosis that has in fact worsened from [id number]. Currently on Prolia Plan - Prolia due next month, Dec - Vit D low, encouraged her to take everyday (3) penitentiary methotrexate user: Code(s): Z79.899 - Other snf (current) drug therapy Category: Medical Plan: #Long-term Current Use of Methotrexate Discussed with patient the benefits and risks of methotrexate for managing their rheumatic condition Benefits include reduced pain, reduced mortality, maintenance of remission and reduction of flares Risks include oral ulcers, photosensitivity, hepatotoxicity, hematologic toxicity, pneumonitis, flu-like symptoms (especially day after administration), nodulosis, lymphomas ? Limit alcohol and avoid Bactrim ? Monitoring: ?CBC, BMP, LFTs every 3-4 months and hepatitis serologies as needed (4) Long-term use of hydroxychloroquine: Comment: Eye exam 10/2023. Okay Eye exam 10/2024. Okay Code(s): Z79.899 - Other snf (current) drug therapy Category: Medical Plan: #Long-term Use of Hydroxychloroquine Discussed with patient the risks and benefits of hydroxychloroquine in managing the rheumatic condition Benefits include: - Reduced pain, reduce mortality, maintenance of remission and reduction of flares Risks include: - GI upset, skin hyperpigmentation, retinal toxicity (especially after more than 5 years of use), myopathy Advised yearly ophthalmology visits Last ophthalmology visit: 10/2023 (5) Encounter for monitoring denosumab therapy: Code(s): Z51.81 - Encounter for therapeutic drug level monitoring; Z79.620 - penitentiary (current) use of immunosuppressive biologic Category: Medical Plan: #Long-term use of Denosumab Discussed with patient the risks and benefits of denosumab (Prolia) for the ma nagement of their osteoporosis Benefits include improved bone density, decreased fracture risk Risks include rapid bone loss if denosumab stopped, osteonecrosis of the jaw especially in patients with poor oral hygiene/diabetes/use of glucocorticoids/age greater than 65 years, atypical femoral fractures, injection site reactions. Mild increased risk of infections due to RANKL on T helper cells, increased risk of hypocalcemia especially in CKD patients Keep vitamin-D at least 35 ng/mL Advised to delay non emergent dental procedures to toward the end of the 6 month cycle and if they plan to stop denosumab would need to continue antiresorptive to maintain the effects of denosumabe Plan I spent 30 minutes reviewing the record and labs, taking a history, examining the patient, discussing the treatment plan and documenting in the medical record Coding Level of Care Code Est Pt Level 4 (64008) Complex EM visit Add On G2211 Diagnoses Seropositive rheumatoid arthritis M05.9 Age-related osteoporosis without current pathological fracture M81.0 Osteoporosis type: age-related Presence of current pathological fracture: without current pathological fracture penitentiary methotrexate user Z79.899 Long-term use of hydroxychloroquine Z79.899 Encounter for monitoring denosumab therapy Z51.81; Z79.620
[2024-12-11 09:01] VITALS: BP 132/78; PULSE 72; O2SAT 98; BMI 27.4
== END 2024-12-11 09:23 | disposition home or self-care (01) ==
LOC: HO.RHES 08:48
PROVIDERS: PCP Internal Medicine; Visit Provider Student in an Organized Health Care Education/Training Program
DX: M05.9 Rheumatoid arthritis with rheumatoid factor, unspecified (principal); M81.0 Age-related osteoporosis without current pathological fracture; Z79.899 Other long term (current) drug therapy; Z51.81 Encounter for therapeutic drug level monitoring; Z79.620 Long term (current) use of immunosuppressive biologic
CPT/HCPCS: 99214

== ENCOUNTER 2025-01-02 09:43 | Outpatient (AMB) | payer BC, SELFPAY ==
[2025-01-02 09:49] VITALS: BMI 27.3
--- NOTE | 2025-01-02 09:49 | A.OFFVIS_ITS ---
Vital Signs 01/02/25 09:49 Height 5 ft 4 in Weight 159 lb BMI 27.3 Intake Visit Reasons: Nail disorder Intake Note: Yaneth is a 69 year old female who presents today as a new patient for an evaluation of her bilateral great toe nail disorder. She has a history of a toenail issue where a bone was growing inside, requiring surgical intervention of her right foot. Pt reports she is having bilateral pain of the hallux and finds increase discomforts in certain closed toe shoe wear. she has not tried any previous treatment at this time this has been an ongoing issue for over 6 months. Allergies No Known Allergies (No Known Allergies*) Allergy (Verified 01/02/25 09:50) HPI HPI Nail disorder: Details: The patient is a 69-year-old female past medical history of rheumatoid arthritis presenting with nail changes and pain to her 2nd digits bilaterally. The patient reports peeling and thickening of the toenails, which has been present for more than six months. The right toenail started before the left. The patient notes a history of multiple toe injuries/fractures to her feet. [facility] Medical History COVID-19 virus RNA test result positive at limit of detection Encounter for monitoring denosumab therapy Pelvic prolapse Anxiety Anxiety Acid reflux Osteoporosis Tailor's bunionette, left Polyarthritis GERD (gastroesophageal reflux disease) Iron deficiency Seropositive rheumatoid arthritis Surgical History History of esophagogastroduodenoscopy (EGD) Hx of tooth extraction History of colonoscopy H/O cystoscopy H/O hemorrhoidectomy Family History Mother CVD (cardiovascular disease) Father No problems noted. Social History Household Members: Family Household Members Other:: Grandson Housing: Apartment Alcohol intake: never Patient Tobacco Use Status: Former Tobacco user Tobacco use type: Cigarette Cigarettes Per Day: 7 Years Smoked: many e-Cigarette/Vaping Use: Never Used Second Hand Smoke Exposure: No service: No Current occupational status: employed Current occupation: [employer] Cognitive needs: No Hearing needs: No Vision needs: Yes Review of Systems Const All systems reviewed & are unremarkable except as noted in HPI and below Physical Exam Vital Signs: BMI result Body Mass Index 27.3 Extrem Other: *Bilateral Lower Extremity Focused Exam Vascular: DP/PT 2/4, CFT<3s to all digits, tg warm to cool, no pedal edema Derm: Dystrophic thickened elongated bilateral hallux nails with subungual debris. Right hallux nail is partially detached at the distal 3rd of the nail. There is a white hue discoloration to bilateral distal hallux nails. Neuro: Protective sensation grossly intact to bilateral lower extremities. MSK: Semi rigid flexion deformities at the PIPJ and DIPJ bilaterally worse to the 2nd digits. Medial border right 2nd distal IPJ has a callus with palpable bone spur. Left 2nd digit lateral border has a similar palpable protuberance. Assessment & Plan Assessment & Plan (1) Tinea unguium: Code(s): B35.1 - Tinea unguium Category: Medical Plan: * Nail biopsy performed of bilateral hallux nail. * Discussed treatment options including topical treatment versus oral antifungal medications. * Explained that oral antifungals such as terbinafine (Lamisil) may cause gastrointestinal upset, headache, rash, taste disturbances, and hepatotoxicity. Baseline and monthly liver function monitoring is recommended during therapy. Patients should be advised to report symptoms such as jaundice, dark urine, or persistent nausea. * Patient was counseled on the importance of anti-fungal foot hygiene, including daily washing and thorough drying of feet, regular changing of socks, and use of breathable footwear. Recommended antifungal sprays shoes. Education provided on keeping toenails trimmed and clean to reduce risk of fungal infections. Preventive strategies discussed to minimize recurrence of fungal infections. * Follow up in 3 weeks (2) Bone spur of toe: Code(s): M77.50 - Other enthesopathy of unspecified foot and ankle Category: Medical Plan: * Recommended hammertoe sleeves from [facility]. * Rx x-ray bilaterally. * Discussed other treatment options which include surgical debridement if pain persists. Orders: Orders Fungus Cult Hair/Skin/Nail Today B35.1 - Tinea unguium Surgical Today B35.1 - Tinea unguium XR Foot Kali 3V Today M77.50 - Other enthesopathy of unspecified foot and ankle Coding Level of Care Code New Pt Level 3 (75047) Diagnoses Tinea unguium B35.1 Bone spur of toe M77.50 Time Spent (min) 30
== END 2025-01-02 10:07 | disposition home or self-care (01) ==
LOC: HO.HPODS 09:43
PROVIDERS: PCP Internal Medicine; Visit Provider Student in an Organized Health Care Education/Training Program
DX: B35.1 Tinea unguium (principal); M77.50 Other enthesopathy of unspecified foot and ankle
CPT/HCPCS: 99203

== ENCOUNTER 2025-01-02 09:43 | Outpatient (REF) | payer BC, SELFPAY | END 2025-01-02 09:44 | disposition home or self-care (01) | LOC: HO.LNP 09:43 | PROVIDERS: PCP Internal Medicine; Visit Provider Student in an Organized Health Care Education/Training Program | DX: B35.1 Tinea unguium (principal); M77.51 Other enthesopathy of right foot and ankle | CPT/HCPCS: 87101; 87220; 88304; 88312 ==

== ENCOUNTER 2025-01-05 09:39 | Outpatient (REF) | payer BC, SELFPAY ==
--- NOTE | ~2025-01-05 | XR_ITS ---
EXAMINATION: XR FOOT, KALI 3V CLINICAL INFORMATION: M77.50 - Other enthesopathy of unspecified foot and ankle COMPARISON: 07/13/2018. TECHNIQUE: AP, lateral, and oblique views of each foot were obtained. FINDINGS: LEFT FOOT: No fracture, dislocation, or suspicious bone lesion. There is normal alignment. Joint spaces are maintained. There is normal plantar arch. The midfoot and hindfoot appear normal. There is a small dorsal calcaneal spur. There is no soft tissue abnormality. RIGHT FOOT: No fracture, dislocation, or suspicious bone lesion. There is normal alignment. Joint spaces are maintained. There is normal plantar arch. The midfoot and hindfoot appear normal. There is a small dorsal calcaneal spur. There is no soft tissue abnormality. XR/XR Foot Kali 3V IMPRESSION: Essentially normal bilateral foot radiographs. Electronically signed by: Eliezer Roth MD 01/08/2025 08:21 AM EDT
== END 2025-01-05 09:40 | disposition home or self-care (01) ==
LOC: HO.XRAY 09:39
PROVIDERS: PCP Internal Medicine; Visit Provider Student in an Organized Health Care Education/Training Program
DX: M77.50 Other enthesopathy of unspecified foot and ankle (principal)
CPT/HCPCS: 73630

== ENCOUNTER → 2025-01-05 09:45 | Outpatient (BNV) | payer BC, SELFPAY | PROVIDERS: PCP Internal Medicine; Visit Provider Radiology Diagnostic Radiology | DX: M77.51 Other enthesopathy of right foot and ankle (principal); M77.52 Other enthesopathy of left foot and ankle | CPT/HCPCS: 73630 ==

== ENCOUNTER 2025-01-16 16:28 | Outpatient (REF) | payer BC, SELFPAY ==
[2025-01-16 19:16] LABS: Alanine Aminotransferase 14 U/L (0-31); Albumin Level 4.5 g/dL (3.5-5.0); Alkaline Phosphatase 70 U/L (39-117); Anion Gap 12 (12-20); Aspartate Amino Transferase 19 U/L (5-31); Blood Urea Nitrogen 12 mg/dL (9-16); Calcium 9.2 mg/dL (8.4-10.2); Carbon Dioxide 29 mmol/L (22-29); Chloride 106 mmol/L (96-108); Estimated Glomerular Filt Rate > 60; Potassium 3.7 mmol/L (3.3-5.1); Sodium 143 mmol/L (135-145); Total Protein 7.2 g/dL (6.5-8.0)
== END 2025-01-16 16:29 | disposition home or self-care (01) ==
LOC: HO.LAB 16:28
PROVIDERS: PCP Internal Medicine; Visit Provider Student in an Organized Health Care Education/Training Program
DX: Z79.899 Other long term (current) drug therapy (principal)
CPT/HCPCS: 36415; 80053; 82306

== ENCOUNTER 2025-01-24 09:42 | Outpatient (AMB) | payer BC, SELFPAY ==
--- NOTE | 2025-01-24 10:19 | AM.OFFVISNUR ---
Intake Visit Reasons: Prolia Allergies No Known Allergies (No Known Allergies*) Allergy (Verified 01/02/25 09:50) Office Meds Prolia 60 mg/mL subcutaneous syringe Performing Provider: Tanika Baez MD Performing Location: [facility] [place] [facility] Administered by: Codie Izaguirre RN on 01/24/25 10:19 Dose Route Admin Location Dispensed Lot Number Expiration Date NDC Production Recorder 60 mg subcut left upper arm 1 mL [id number] 05/26/27 80591-129-90 [employer] Total Dispensed Waste 1 mL 0 % Comments: pt arrived today for her prolia injection in left upper arm. injection site was clear, dry, and intact. no previous adverse reactions from prolia. pt advised to notify us if she has any reactions or adverse effects. Assessment & Plan Assessment & Plan Orders: Orders AMB Denosumab Injection Practice Supplied Today M81.0 - Age-related osteoporosis without current pathological fracture Coding
== END 2025-01-24 10:17 | disposition home or self-care (01) ==
LOC: HO.RHES 09:42
PROVIDERS: PCP Internal Medicine; Visit Provider Student in an Organized Health Care Education/Training Program
DX: M81.0 Age-related osteoporosis without current pathological fracture (principal)

== ENCOUNTER → 2025-01-24 09:42 | Outpatient (BNVA) | payer BC, SELFPAY | PROVIDERS: PCP Internal Medicine; Visit Provider Student in an Organized Health Care Education/Training Program | DX: M81.0 Age-related osteoporosis without current pathological fracture (principal) | CPT/HCPCS: 96372; J0897 ==

== ENCOUNTER 2025-01-30 11:18 | Outpatient (AMB) | payer BC, SELFPAY ==
--- NOTE | 2025-01-30 11:32 | A.OFFVIS_ITS ---
Vital Signs 3 01/30/25 11:50 Height 5 ft 4 in Weight 159 lb BMI 27.3 Intake Visit Reasons: Nail disorder Intake Note: Yaneth is a 69 year old female who presents today for a follow up on her nail disorder. Patient reports she has not seen any improvement since her last visit Allergies No Known Allergies (No Known Allergies*) Allergy (Verified 01/30/25 11:51) HPI HPI Nail disorder: Details: The patient is a 69-year-old female past medical history of rheumatoid arthritis returning for nail biopsy evaluation pain to her 2nd digits bilaterally. She reports that the 2nd toe pain no longer hurts after the debridement last visit. She has not purchased the toe sleeve however she is using a cotton gauze. The patient reports peeling and thickening of the toenails, which has been present for more than six months. The right toenail started before the left. The patient notes a history of multiple toe injuries/fractures to her feet. [facility] Medical History COVID-19 virus RNA test result positive at limit of detection Encounter for monitoring denosumab therapy Pelvic prolapse Anxiety Anxiety Acid reflux Osteoporosis Tailor's bunionette, left Polyarthritis GERD (gastroesophageal reflux disease) Iron deficiency Seropositive rheumatoid arthritis Surgical History History of esophagogastroduodenoscopy (EGD) Hx of tooth extraction History of colonoscopy H/O cystoscopy H/O hemorrhoidectomy Family History Mother CVD (cardiovascular disease) Father No problems noted. Social History Household Members: Family Household Members Other:: Grandson Housing: Apartment Alcohol intake: never Patient Tobacco Use Status: Former Tobacco user Tobacco use type: Cigarette Cigarettes Per Day: 7 Years Smoked: many e-Cigarette/Vaping Use: Never Used Second Hand Smoke Exposure: No service: No Current occupational status: employed Current occupation: [employer] Cognitive needs: No Hearing needs: No Vision needs: Yes Physical Exam Extrem Other: *Bilateral Lower Extremity Focused Exam Vascular: DP/PT 2/4, CFT<3s to all digits, tg warm to cool, no pedal edema Derm: Dystrophic thickened elongated bilateral hallux nails with subungual debris. Right hallux nail is no longer partially detached. There is a subungual yellow discoloration to bilateral distal hallux nails. Neuro: Protective sensation grossly intact to bilateral lower extremities. MSK: Semi rigid flexion deformities at the PIPJ and DIPJ bilaterally worse to the 2nd digits. Medial border right 2nd distal IPJ has a callus with palpable bone spur. Left 2nd digit lateral border has a similar palpable protuberance. Results Reviewed Results Reviewed: Fungus Cult Hair/Skin/Nail Preliminary 01/16/25-1102 No fungi isolated to date. Culture is examined weekly for a total of 28 days incubation. A change in status will result in an updated culture report. Assessment & Plan Assessment & Plan (1) Tinea unguium: Code(s): B35.1 - Tinea unguium Category: Medical Plan: * Reviewed nail biopsy of bilateral hallux nails. * Both the pathology and culture were negative. There is a chance it is a false negative, so she is prescribed topical ciclopirox. * It was explained however that if it is not fungus, the discoloration may be permanent. * Follow up in 3 months (2) Bone spur of toe: Code(s): M77.50 - Other enthesopathy of unspecified foot and ankle Category: Medical Plan: * Recommended hammertoe sleeves from [facility]. * Reviewed bilateral foot x-rays which do not show any significant bone spurring. * Discussed other treatment options which include surgical debridement if pain persists. Medications: New 2 ciclopirox 8% Apply to fungal toenails daily. Remove build-up at the end of the week. 1 appl topical BEDTIME 6.6 mL 3RF nail fungus 4 months B35.1 - Tinea unguium Coding Level of Care Code Est Pt Level 3 (01481) Diagnoses Tinea unguium B35.1 Bone spur of toe M77.50 Time Spent (min) 30
[2025-01-30 11:50] VITALS: BMI 27.3
== END 2025-01-30 11:43 | disposition home or self-care (01) ==
LOC: HO.HPODS 11:19
PROVIDERS: PCP Internal Medicine; Visit Provider Student in an Organized Health Care Education/Training Program
DX: B35.1 Tinea unguium (principal); M77.50 Other enthesopathy of unspecified foot and ankle
CPT/HCPCS: 99213

== ENCOUNTER 2025-03-19 11:36 | Outpatient (AMB) | payer BC, SELFPAY ==
[2025-03-19 11:43] VITALS: BP 160/78; PULSE 76; RESP 18; O2SAT 98; BMI 27.3
--- NOTE | 2025-03-19 11:43 | MHC.PC.OV ---
Vital Signs 03/19/25 11:43 Height 5 ft 4 in Weight 159 lb 2 oz BMI 27.3 BP 160/78 H Blood Pressure Location Lt brachial Position Sitting Respiration 18 Pulse 76 Pulse Source Pulse Oximeter Temp Source Temporal Artery Scan Pulse Oximetry (%) 98 Oxygen Delivery Method Room Air Intake Visit Reasons: Left eye redness and discharge Supervisor Drying And Winding Required: No Accompanied by: Self / Same As Patient Allergies No Known Allergies (No Known Allergies*) Allergy (Verified 03/19/25 11:59) Medication List - Last Reconciled 03/19/25 by KAREN Hill acetaminophen ER (Tylenol 8 Hour) 1,300 mg PO Q12H PRN ascorbic acid (vitamin C) 1 g (2 x 500 mg) PO DAILY cholecalciferol (vitamin D3) 100 mcg (2 x 50 mcg (2,000 unit)) PO DAILY folic acid 1 mg PO DAILY hydroxychloroquine One tab twice daily 5 days a week and 1 tab daily 2 days a week mecobalamin (vitamin B12) 1,000 mcg PO DAILY methotrexate sodium 10 mg (4 x 2.5 mg) PO QWEEK Tobacco use date assessed: 03/19/25 Fall risk assessment: No Falls in past year Last assessed Fall Risk: 03/19/25 Dental Screening Dental Screen Date: 03/19/25 Did you have a dental visit in the last 12 months?: Yes Did you have a dental problem in the last 6 months where you did not have access to dental care?: No Was dental information given to patient?: Patient has dentist HPI HPI Comments History of Present Illness Details The patient is a 69 year old female presenting with left eye irritation and nasal congestion. She reports that yesterday she suddenly experienced tearing in her left eye, followed by blurry vision, itching, and a foreign body sensation. This morning, the eye was slightly swollen but not as severe, and she denies any issues with her right eye. Two days ago, she developed nasal stuffiness, making it difficult to breathe through her nose, which she also described as dry and painful to touch. She has an associated cough but denies any shortness of breath. She has not taken any medication for the nasal stuffiness. Her blood pressure was 160 today, which she notes is higher than her usual readings of 120-135. She does not take any medication for blood pressure. She reports a history of arthritis, for which she takes methotrexate weekly, and also takes hydroxychloroquine. The patient reports poor sleep and was prescribed a medication for relaxation but chose not to take it due to concerns about side effects. She also reports having difficulty swallowing large pills. Health Maintenance - The patient has a follow-up appointment scheduled with Dr. Garcia in May. Social History - The patient expresses concern about taking too many medications and has previously declined a prescribed medication for relaxation due to fear of side effects and interactions. Results [facility] Medical History COVID-19 virus RNA test result positive at limit of detection Encounter for monitoring denosumab therapy Pelvic prolapse Anxiety Anxiety Acid reflux Osteoporosis Tailor's bunionette, left Polyarthritis GERD (gastroesophageal reflux disease) Iron deficiency Seropositive rheumatoid arthritis Surgical History History of esophagogastroduodenoscopy (EGD) Hx of tooth extraction History of colonoscopy H/O cystoscopy H/O hemorrhoidectomy Family History Mother CVD (cardiovascular disease) Father No problems noted. Social History Household Members: Family Household Members Other:: Grandson Housing: Apartment Alcohol intake: never Patient Tobacco Use Status: Former Tobacco user Tobacco use type: Cigarette Cigarettes Per Day: 7 Years Smoked: many e-Cigarette/Vaping Use: Never Used Second Hand Smoke Exposure: No service: No Current occupational status: employed Current occupation: [employer] Cognitive needs: No Hearing needs: No Vision needs: Yes Questionnaire PHQ-9 Over the last 2 weeks, how often have you been bothered by any of the following problems? 2. Feeling down, depressed, or hopeless: not at all 3. Trouble falling or staying asleep, or sleeping too much: several days 4. Feeling tired or having little energy: several days 5. Poor appetite or overeating: not at all 6. Feeling bad about yourself - or that you are a failure or have let yourself or your family down: not at all 7. Trouble concentrating on things, such as reading the newspaper or watching television: not at all 8. Moving or speaking so slowly that other people could have noticed. Or the opposite - being so fidgety or restless that you have been moving around a lot more than usual: not at all 9. Thoughts that you would be better off or of hurting yourself in some way: not at all Source: Developed by Drs. Abdon Gallo, Radha Tabares, Chad Osei and colleagues, with an educational joanna from [email or web address]. Thrive Questionnaire Date Thrive assessed: 03/19/25 I am a: Patient What is your living situation today?: I have a steady place to live Within the past 12 months, did the food you bought not last and you didn't have the money to get more?: Never true Within the past 12 months, did you worry whether your food would run out before you got money to buy more?: Never true Do you have trouble paying for medicines?: I choose not to answer this question Do you have trouble getting transportation to medical appointments?: No Do you have trouble paying your heating and electricity bill?: No Do you have trouble taking care of your child, family member or friend?: No Do you have trouble with day-to-day activities such as bathing, preparing meals, shopping, managing finances, etc.?: I choose not to answer this question Are you currently unemployed and looking for a job?: No Are you interested in more education?: No Currently or been in a relationship where the following occur: No concerns reported THRIVE Score: 0 CB-7 AMB Questionnaire CB-7 Date CB - 7 assessed: 05/23/24 Source: Developed by Drs. Abdon Gallo, Radha Tabares, Chad Osei and colleagues, with an educational joanna from [email or web address]. Review of Systems Narrative Review of Systems - Eyes: Reports tearing, blurry vision, itchiness, foreign body sensation, and slight swelling in the left eye. - ENT: Reports nasal stuffiness, nasal dryness, and cough. - Respiratory: Denies shortness of breath. - Musculoskeletal: Reports hand pain. - Integumentary: Reports dry hands. - Neurological: Reports poor sleep. - GI: Reports difficulty swallowing pills. Const Denies body aches, Denies chills, Denies fever(s), Denies headache(s) and Denies poor appetite Eyes Reports blurry vision (Left eye), Reports eye discharge (Yellowish) and Reports itchy eyes (Left eye) ENT Denies dysphagia, Denies dizziness, Denies headache(s), Reports nasal congestion and Denies odynophagia Card Denies chest pain, Denies syncope, Denies edema, Denies irregular heart rhythm, Denies lightheadedness and Denies dyspnea Resp Denies chest congestion, Reports cough (On and off) and Denies dyspnea GI Denies abdominal pain, Denies constipation, Denies dysphagia, Denies diarrhea, Denies nausea, Denies odynophagia and Denies vomiting Reports no additional complaints Musc Reports no additional complaints and Denies abnormal gait Skin/Breast Reports system reviewed and no additional complaints, except as documented Neuro Denies abnormal gait, Denies dizziness, Denies syncope and Denies headache(s) Psych Reports no additional complaints Aller/Immun Reports itchy eyes (Left eye) Physical exam (Primary Care) Vital Signs: Last Vital Signs Pulse 76 03/19/25 11:43 Resp 18 03/19/25 11:43 BP 160/78 H 03/19/25 11:43 Pulse Ox 98 03/19/25 11:43 Oxygen Delivery Method Room Air 03/19/25 11:43 BMI result Body Mass Index 27.3 Tobacco/Smoking Status: Tobacco use Status Tobacco use date assessed 03/19/25 03/19/25 11:53 Patient Tobacco Use Status Former Tobacco user 03/19/25 11:53 Tobacco use type Cigarette 03/19/25 11:53 e-Cigarette/Vaping Use Never Used 03/19/25 11:53 Thrive Assessment: Date of Thrive Assessment Date Thrive assessed 03/19/25 03/19/25 11:53 Currently or been in a relationship where the following occur: No concerns reported Narrative Physical Exam - Vitals: Blood pressure was 160/x mmHg. - A repeat blood pressure reading was similarly elevated. - Eyes: Left eye shows erythema and yellowish discharge. - There is slight edema of the left eye. - ENT: Examination of the nose reveals yellowish drainage. Const General: cooperative, healthy appearing, comfortable and no acute distress Orientation/consciousness: patient oriented x3 HENMT Head: Yes normocephalic Ears: hearing grossly normal bilaterally General nose exam: Abnormal mucous membranes and turbinates present boggy bilateral and erythematous bilateral and Nasal discharge present purulent on the right Face and sinus: No sinus tenderness Eyes General: appearance normal, both eyes and all related structures Conjunctivae: conjunctival abnormal left (erythema) discharge purulent Neck Neck: Yes full ROM and Yes no lymphadenopathy Resp Effort & Inspection: normal respiratory effort Auscultation: clear to auscultation bilaterally, no crackles, no rales, no rhonchi and no wheezes Cardio Rate: regular rate Rhythm: regular rhythm Skin General skin exam: no rashes or lesions noted Neuro General: patient oriented x3 Gait exam (Neuro): Normal gait present Extrem General: Yes normal to inspection, Yes full ROM and No edema Psych Affect: normal affect Attitude: cooperative Insight: Good insight present (Psych) Judgement: Good judgement present (Psych) Coding Level of Care Code Est Pt Level 3 (62407) Diagnoses Acute bacterial conjunctivitis of left eye H10.32 Acute conjunctivitis type: bacterial Elevated blood pressure reading in office with diagnosis of hypertension I10 Rhinosinusitis J32.9 Assessment & Plan Assessment & Plan (1) Acute conjunctivitis of left eye: Code(s): H10.32 - Unspecified acute conjunctivitis, left eye Category: Medical Qualifiers: Acute conjunctivitis type: bacterial Qualified Code(s): H10.32 - Unspecified acute conjunctivitis, left eye (2) Elevated blood pressure reading in office with diagnosis of hypertension: Code(s): I10 - Essential (primary) hypertension Category: Medical (3) Rhinosinusitis: Code(s): J32.9 - Chronic sinusitis, unspecified Category: Medical Plan Plan Patient was informed and verbally consented to the use of an ambient scribe for clinic note documentation during this visit. 1. Acute Conjunctivitis The patient's symptoms of left eye redness, itching, swelling, and yellowish discharge are consistent with acute conjunctivitis. Erythromycin ophthalmic ointment was prescribed. The patient was instructed to use it in both eyes to prevent cross-contamination, and an ointment was selected over drops for its longer-lasting effect. 2. Acute Sinusitis The patient has symptoms of nasal stuffiness, dryness, pain, and a cough, with examination revealing yellowish nasal drainage, supporting a diagnosis of acute sinusitis. A Z-Jonnie was initially considered but was deferred due to a potential interaction with the patient's hydroxychloroquine. Augmentin was prescribed to be taken twice a day for seven days. To address her difficulty swallowing pills, it was suggested she take the medication with applesauce. A nasal spray, Flonase, was also recommended to alleviate congestion, with instructions to purchase it over the counter if not covered by insurance. 3. Elevated Blood Pressure Reading The patient's blood pressure was elevated on two readings during the visit, which may be secondary to stress from her acute illnesses. A decision was made to defer management and have the patient return for a recheck in two weeks to avoid causing additional stress during the holidays. Discussion Notes I discussed my findings of acute conjunctivitis in her left eye and an acute sinus infection with the patient. For the eye, I prescribed erythromycin ointment and explained that she should use it in both eyes to prevent the infection from spreading. I chose an ointment because it remains in the eye longer than drops. For the sinusitis, I initially considered a Z-Jonnie but changed to Augmentin due to a potential interaction with her hydroxychloroquine. I prescribed a seven-day course, twice daily. As she reported difficulty swallowing pills, I suggested taking it with applesauce. I also recommended Flonase nasal spray for congestion, advising her that it is available over the counter if insurance does not cover it. We discussed her elevated blood pressure reading, which I suspect may be related to her current infections and stress. We agreed she will return in two weeks for a recheck, allowing her to get through the holiday without added pressure. The patient stated she had no known drug allergies. Patient Instructions - For your eye infection, apply the Erythromycin ointment in both eyes as prescribed. - For your sinus infection, take the Augmentin antibiotic twice a day for seven days. - If you have trouble swallowing the large pill, you can take it with a spoonful of applesauce to help it slide down. - Use the Flonase nasal spray to help open your nasal passages. - If your insurance does not cover it, you can buy this over the counter at a pharmacy. - Please come back to the clinic in two weeks so we can check your blood pressure again. - Try to relax and enjoy the holiday season. Medications: New erythromycin 0.5 inches ophthalmic (eye) QID 50 grams 0RF 5 days amoxicillin-pot clavulanate 875-125 mg 1 tab PO BID 14 tabs 0RF 7 days fluticasone propionate 50 mcg/actuation administer into each nostril 1 spray intranasal BID 16 grams 0RF
== END 2025-03-19 12:24 | disposition home or self-care (01) ==
LOC: HO.HMCH 11:37
PROVIDERS: PCP Internal Medicine
DX: H10.32 Unspecified acute conjunctivitis, left eye (principal); I10 Essential (primary) hypertension; J32.9 Chronic sinusitis, unspecified